=== PATIENT | female | born 1945 | race Caucasian/White ===

== ENCOUNTER → 2018-06-19 | Outpatient (CLI) | payer MEDICARE ==
[~2018-06-19] MED LIST: AMLODIPINE BESYL5 MG PO; ASPIRIN81 MG PO; COLESTIPOL HCL1 G1 PO; COZAAR25 MG PO; LASIX20 MG PO; METFORMIN HCL500 MG PO; METOPROLOL SUCC25 MG PO; NEXIUM40 MG PO; NITROGLYCERIN0.4 MG SL; SIMVASTATIN40 MG PO; SINGULAIR10 MG; VICODIN 5-5001 EACH PO
--- NOTE | 2018-06-19 18:44 | Diagnostic Imaging Report ---
Lumbar Spine Radiographs: 5 views including obliques HISTORY: LUMBAR PAIN INTO RT LOWER EXTREMITY, back pain COMPARISON: None available. DISCUSSION: Suboptimal right oblique projection. The osseous structures are partially obscured by stool and bowel gas. Five non-rib bearing lumbar vertebral bodies. Moderate left convex curvature. No displaced fracture or compression deformity is identified. Disc Spaces: Multilevel degenerative changes, moderate on the right concavity of the curvature. Facets: Multilevel degenerative changes, most notably severe on the right side of the concavity. Other: Postsurgical changes. IMPRESSION: 1. No acute radiographic abnormality. 2. Multilevel degenerative changes, most notably severe hypertrophic facet arthrosis at L4-5 and L5-S1. Signed by: Dr. John Huang D.O., M.M.M. on 06/19/2018 6:41 PM
== END ==
LOC: RAD 16:41
DX: M54.5 Low back pain (principal)
CPT/HCPCS: 72110

== ENCOUNTER 2019-10-29 13:16 | Observation (INO) | payer MEDICARE ==
[~2019-10-29] VITALS: Ht 160 cm; Wt 66.9 kg
[~2019-10-29 13:16] MED LIST changes: -SINGULAIR10 MG; +SINGULAIR10 MG PO
--- OUTSIDE RECORDS SUMMARY | 2019-10-29 13:55 | XMS REPORT | Continuity of Care Document ---
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 Allergies, Adverse Reactions, Alerts Allergy Name Allergy Type Status Severity Reaction(s) Onset Date Inacti ve Date Treating Clinician Comments Source Sulfa (Sulfonamide Antibiotics) DA Active U 2019-09-11 00 :00:00 [facility] Sulfa (Sulfonamide Antibiotics) DA Active U 2019-08-24 00 :00:00 [facility] Sulfa (Sulfonamide Antibiotics) DA Active U 2019-07-27 00 :00:00 [facility] No Known Contrast Allergies DA Active U 2001-03-04 00:00: 00 [facility] No Known Food Allergies DA Active U 2001-03-04 00:00:00 [facility] No Known Other Allergies DA Active U 2001-03-04 00:00:00 [facility] SULFA DRUGS DA Active U 2001-03-04 00:00:00 [facility] Medications This patient has no known medications. Procedures This patient has no known procedures. Results Test Description Test Time Test Comments Results Result Comments Source BASIC METABOLIC PANEL 2019-10-24 12:14:00 Test Item SODIUM (test code = NA) 134 mEq/L 134-147 N POTASSIUM (test code = K) 3.8 mEq/L 3.4-5.0 N CHLORIDE (test code = CL) 99 mEq/L 100-108 L CARBON DIOXIDE (test code = CO2) 29 mEq/L 21-33 N ANION GAP (test code = GAP) 10 0-20 N GLUCOSE (test code = GLU) 102 mg/dL 70-110 N BLOOD UREA NITROGEN (test code = BUN) 20 mg/dL 7-18 H GLOMERULAR FILTRATION RATE (test code = GFR) 36.8 70-80 L Units of measure = ml/min/1.73 m2 CREATININE (test code = CREAT) 1.4 mg/dL 0.6-1.3 H CALCIUM (test code = CA) 8.9 mg/dL 8.0-10.5 N CBC W/AUTO [id number] 06:16:00* Test Item Value Reference Range Interpretation Comments WHITE BLOOD CELL (test code = WBC) 7.87 x10 3/uL 4.5-11.0 N RED BLOOD CELL (test code = RBC) 4.28 x10 6/uL 3.54-5.02 N HEMOGLOBIN (test code = HGB) 8.5 g/dL 11.0-15.0 L HEMATOCRIT (test code = HCT) 28.0 % 33.0-45.0 L MEAN CELL VOLUME (test code = MCV) 65.4 fL 81.0-99.0 L MEAN CELL HGB (test code = MCH) 19.9 pg 27.0-33.0 L MEAN CELL HGB CONCETRATION (test code = MCHC) 30.4 g/dL 33.0-37. 0 L RED CELL DISTRIBUTION WIDTH CV (test code = RDW) 24.3 % 11.5- 14.5 H RED CELL DISTRIBUTION WIDTH SD (test code = RDW-SD) 51.2 fL 37 .0-54.0 N PLATELET COUNT (test code = PLT) 275 x10 3/uL 150-400 N IMMATURE PLATELET FRACTION (test code = IPF) 9.3 % 0.9-11.2 N NEUTROPHIL % (test code = NT%) 62.3 % 56.0-77.0 N IMMATURE GRANULOCYTE % (test code = IG%) 0.8 % 0.0-2.0 N LYMPHOCYTE % (test code = LY%) 23.4 % 14.0-32.0 N MONOCYTE % (test code = MO%) 10.8 % 4.8-9.0 H EOSINOPHIL % (test code = EO%) 1.8 % 0.3-3.7 N BASOPHIL % (test code = BA%) 0.9 % 0.0-2.0 N NUCLEATED RBC % (test code = NRBC%) 0.0 % 0-0 N NEUTROPHIL # (test code = NT#) 4.91 x10 3/uL 2.0-7.6 N IMMATURE GRANULOCYTE # (test code = IG#) 0.06 x10 3/uL 0.00-0.03 H LYMPHOCYTE # (test code = LY#) 1.84 x10 3/uL 1.0-3.8 N MONOCYTE # (test code = MO#) 0.85 x10 3/uL 0.1-0.8 H EOSINOPHIL # (test code = EO#) 0.14 x10 3/uL 0.0-0.2 N BASOPHIL # (test code = BA#) 0.07 x10 3/uL 0.0-0.2 N NUCLEATED RBC # (test code = NRBC#) 0.00 x10 3/uL 0.0-0.1 N MANUAL DIFF REQUIRED (test code = MDIFF) NO [id number] 17:01:00* Test Item Value Reference Range Interpretation Comments TROPONIN-I (test code = TROPI) < 0.015 ng/mL 0.000-0.045 N Negative: <= 0.045 Positive: >= 0.046 Correlation with serial results, other cardiac markers andclinical findings is necessary to determine the clinicalsignificance of this result. Results using different methodologies should not be comparedto one another as quantitative results may vary by method. - CT ABD PELVIS W/O [id number] 14:18:00 Name: GROVESKELLY JUNE [facility] : 1945 Age/S: 73 / F [address] [place] [address] Unit #: [id number] Loc: [place] [address] Phys: Deng Morrow DO Acct: [id number] Dis Date: Status: REG ER PHONE #: [phone] Exam Date: 10/23/2019 2895 FAX #: [phone] Reason: abd pain, nausea, vomiting, diarrhea EXAMS: CPT CODE: [id number] CT ABD PELVIS W/O CONT [id number] PROCEDURE: CT ABDOMEN AND PELVIS WITHOUT CONTRAST INDICATION: abd pain, nausea, vomiting, diarrhea; 73-year-old female with complaint of left lower quadrant abdominal pain. Previous history of pancreatic cancer. COMPARISON: CT of 09/22/2019 TECHNIQUE: Helical imaging was performed diaphragm through the symphysis with multiplanar reconstructions. IV CONTRAST: None. GI CONTRAST: None. CT imaging performed at this location utilizes radiation dose optimization techniques which include one or more of the following: - Automated exposure control -Adjustment of the mA and/or kV according to patient size -Use of iterative reconstruction technique CT Radiation Dose DLP 505.48 mGy-cm LIMITATIONS: Evaluation of abdominal viscera and vascular structures may be limited by the lack of intravenous contrast. FINDINGS: LOWER CHEST: There are bandlike opacities in the lung bases compatible with subsegmental atelectasis or scarring. No consolidation. The heart is moderately enlarged. Aortic valve calcifications. Severe coronary arterial calcifications. Small sliding- type hiatal hernia. LIVER: The liver is diffusely increased in density with attenuation values of slightly greater than 80 [place] u nits. There is a small circumscribed 6 mm low-attenuation lesion subcapsul ar segment 4A left lobe series 2 image 18, too small to characterize, stab le from prior exam. BILIARY TREE: No biliary dilatation. GALLBLADDER: Cholecystectomy. SPLEEN: Mildly enlarged, 13.2 cm in length. No focal splenic lesion. PANCREAS: Postoperativ e changes of distal pancreatectomy. The remaining proximal pancreas is unr emarkable. No peripancreatic fluid collection or mass lesion. ADRENALS: Normal. PAGE 1 Signed Report (CONTINUED) Name: KELLY GROVES [facility] : 1945 Age/S: 73 / F [address] [place] [address] Unit #: [id number] Loc: [place] [address] Phys: Deng Morrow Acct: [id number] Dis Date: Status: REG ER PHONE #: [phone] Exam Date: 10/23/2019 3904 FAX #: [phone] Reason: abd pain, nausea, vomiting, diarrhea EXAMS: CPT CODE: [id number] ABD PELVIS W/O CONT [id number] <Continued> KIDNEYS: Normal renal contours. No urinary calculi, hydronephros is or perinephric stranding. BOWEL: Small sliding-type hiata l hernia. Limited assessment of the unopacified and contracted stomach. Pa thologic rugal fold thickening not excluded. No perigastric inflammation. The small bowel is unremarkable. There is a moderate volume of formed feca l material in the ascending, transverse and descending colon. Radiodense f ormed feces in the proximal sigmoid colon. There is localized stranding of pericolonic fat at this level with subjective wall thickening. There are scattered sigmoid diverticula. The rectum is contracted without defi nitive wall thickening. APPENDIX: No evidence for appendicitis. PERITONEUM: No free intraperitoneal fluid or air. RETR OPERITONEUM: Moderate calcified plaque abdominal aorta. No aneurysm. No ad enopathy. PELVIS: No pelvic mass. Uterus is surgically absent. The urinary bladder is unremarkable. MUSCULOSKELETAL: Thoracolu mbar scoliosis. Multilevel degenerative changes of the spine. No acute ske letal abnormality. IMPRESSION: 1. Moderate stool burden with formed feces in the colon including radiodense fecal material in t he sigmoid colon. Partially obstructing lesion not excluded with benign and malignant stricture in the differential. There is localized strandin g of fat the level of mid sigmoid colon with equivocal wall thickening. Focal colitis and diverticulitis in the differential. No evidence for pe rforation or abscess. Further imaging options include endoscopy. 2. Limited assessment of the contracted stomach. Pathologic rugal fold thickening not excluded. Further imaging options include endoscopy. 3. P ostoperative changes of partial pancreatectomy without evidence for loca l recurrence. 4. Hyperattenuation of the liver. Increased iron depositio n, amiodarone toxicity and other metabolic disorders in the differential . 5. Small circumscribed subcentimeter liver lesion is too small to characterize, stable from prior exam with benign lesion favored. In this patient with history of pancreas malignancy, comparison with PAGE 2 Signed Report (CONTINUED) Name: CYNTHIA GROVES [facility] : 1945 e/S: 73 / F [address] [place] [address] Unit #: [id number] Loc: [place] [address] Phys: Deng Morrow Acct: [id number] Dis Date: Status: REG ER PHONE #: [phone] Exam Date: 10/23/2019 1354 FAX #: [phone] Reason: abd pain, nausea, vomiting, diarrhea EXAMS: CPT CODE: [id number] CT ABD PELVIS W/O CONT [id number] <Continued> prior studies would be helpful to confirm stability. Otherwise, further imaging options include follow-up MRI or CT in 3-6 months. 6. Mild splenomegaly. 7. Atherosclerosis. 8. Severe coronary arterial calcifications. Aortic valve calcifications. Mild cardiomegaly. REFERENCE: Management of Incidental Liver Lesions on CT: A White Paper of the ACR Incidental Findings Committee. 2017. SL: [id number] at 1418 Reported and signed by: Be Mosley M.D. CC: Deng Morrow DO Technologist:Jose D Guerra RT(R) CTDI: DLP: Trnscb Date/Time: 10/23/2019 (1418) [email or web address] Orig Print D/T: S: 10/23/2019 (7757) PAGE 3 Signed Report BASIC METABOLIC [id number] 13:43:00* Test Item Value Reference Range Interpretation Comments SODIUM (test code = NA) 133 mEq/L 134-147 L POTASSIUM (test code = K) 3.8 mEq/L 3.4-5.0 N CHLORIDE (test code = CL) 95 mEq/L 100-108 L CARBON DIOXIDE (test code = CO2) 28 mEq/L 21-33 N ANION GAP (test code = GAP) 14 0-20 N GLUCOSE (test code = GLU) 133 mg/dL 70-110 H BLOOD UREA NITROGEN (test code = BUN) 24 mg/dL 7-18 H GLOMERULAR FILTRATION RATE (test code = GFR) 31.5 70-80 L Units of measure = ml/min/1.73 m2 CREATININE (test code = CREAT) 1.6 mg/dL 0.6-1.3 H CALCIUM (test code = CA) 8.9 mg/dL 8.0-10.5 N HEPATIC FUNCTION [id number] 13:43:00* Test Item Value Reference Range Interpretation Comments TOTAL PROTEIN (test code = PROT) 8.4 g/dL 6.4-8.2 H ALBUMIN (test code = ALB) 3.60 g/dL 3.4-5.0 N BILIRUBIN TOTAL (test code = BILT) 0.7 MG/DL <1.5 N BILIRUBIN DIRECT (test code = BILD) 0.30 MG/DL 0.0-0.30 BILIRUBIN INDIRECT (test code = BILIND) 0.40 MG/DL SGOT/AST (test code = AST) 77 IUnit/L 15-37 H SGPT/ALT (test code = ALT) 63 IUnit/L 15-65 N ALKALINE PHOSPHATASE TOTAL (test code = ALKP) 52 IUnit/L 20-125 N [id number] 13:43:00* Test Item Value Reference Range Interpretation Comments LIPASE (test code = LIP) 140 IUnit/L 73-393 N [id number] 13:43:00* Test Item Value Reference Range Interpretation Comments TROPONIN-I (test code = TROPI) < 0.015 ng/mL 0.000-0.045 N Negative: <= 0.045 Positive: >= 0.046 Correlation with serial results, other cardiac markers andclinical findings is necessary to determine the clinicalsignificance of this result. Results using different methodologies should not be comparedto one another as quantitative results may vary by method. CBC W/AUTO [id number] 13:36:00* Test Item Value Reference Range Interpretation Comments WHITE BLOOD CELL (test code = WBC) 10.03 x10 3/uL 4.5-11.0 RED BLOOD CELL (test code = RBC) 5.11 x10 6/uL 3.54-5.02 H HEMOGLOBIN (test code = HGB) 10.0 g/dL 11.0-15.0 L HEMATOCRIT (test code = HCT) 32.0 % 33.0-45.0 L MEAN CELL VOLUME (test code = MCV) 62.6 fL 81.0-99.0 L MEAN CELL HGB (test code = MCH) 19.6 pg 27.0-33.0 L MEAN CELL HGB CONCETRATION (test code = MCHC) 31.3 g/dL 33.0-37. 0 L RED CELL DISTRIBUTION WIDTH CV (test code = RDW) 23.0 % 11.5- 14.5 H RED CELL DISTRIBUTION WIDTH SD (test code = RDW-SD) 47.1 fL 37 .0-54.0 N PLATELET COUNT (test code = PLT) 363 x10 3/uL 150-400 N IMMATURE PLATELET FRACTION (test code = IPF) 5.2 % 0.9-11.2 N NEUTROPHIL % (test code = NT%) 74.1 % 56.0-77.0 N IMMATURE GRANULOCYTE % (test code = IG%) 0.6 % 0.0-2.0 N LYMPHOCYTE % (test code = LY%) 14.7 % 14.0-32.0 N MONOCYTE % (test code = MO%) 9.5 % 4.8-9.0 H EOSINOPHIL % (test code = EO%) 0.4 % 0.3-3.7 N BASOPHIL % (test code = BA%) 0.7 % 0.0-2.0 N NUCLEATED RBC % (test code = NRBC%) 0.0 % 0-0 N NEUTROPHIL # (test code = NT#) 7.44 x10 3/uL 2.0-7.6 N IMMATURE GRANULOCYTE # (test code = IG#) 0.06 x10 3/uL 0.00-0.03 H LYMPHOCYTE # (test code = LY#) 1.47 x10 3/uL 1.0-3.8 N MONOCYTE # (test code = MO#) 0.95 x10 3/uL 0.1-0.8 H EOSINOPHIL # (test code = EO#) 0.04 x10 3/uL 0.0-0.2 N BASOPHIL # (test code = BA#) 0.07 x10 3/uL 0.0-0.2 N NUCLEATED RBC # (test code = NRBC#) 0.00 x10 3/uL 0.0-0.1 N MANUAL DIFF REQUIRED (test code = MDIFF) NO RBC [id number] 13:36:00* Test Item Value Reference Range Interpretation Comments POLYCHROMASIA (test code = POLC) 1+ HYPOCHROMIA (test code = HYPO) 1+ POIKILOCYTOSIS (test code = POIK) 2+ BASOPHILIC STIPPLING (test code = STP) FEW ANISOCYTOSIS (test code = ANISO) 2+ MICROCYTOSIS (test code = MICR) 2+ TARGET CELLS (test code = TGT) 1+ TEAR DROP CELLS (test code = TEAR) FEW ELLIPTOCYTES (test code = ELL) FEW OVALOCYTES (test code = OVAL) 1+ SCHISTOCYTES (test code = GINA) FEW PROTHROMBIN [id number] 13:21:00* Test Item Value Reference Range Interpretation Comments PROTHROMBIN TIME PATIENT (test code = PTP) 28.3 SECONDS 9.3-12.9 H INTERNATIONAL NORMAL RATIO (test code = INR) 2.6 0.8-1.2 H TARGET INR BY INDICATION Indication INR1. Prophylaxis of venous thrombosis 2.0 - 3.0 (orthopedic surgery), Prophylaxis of venous thrombosis (other than high-risk surgery), Treatment of Deep Vein Thrombosis/Pulmonary Embolism, Prevention of systemic embolism - Tissue heart valves, Acute Myocardial Infarction (to prevent systemic embolism), Valvular heart disease, Atrial Fibrillation, Bileaflet mechanical valve in aortic position.2. Mechanical prosthetic valves (high risk), 2.5 - 3.5 Presence of Lupus Anticoagulant or Antiphospholipid Antibodies, Prevention of systemic embolism - Acute Myocardial Infarction (to prevent recurrent infarct). THROMBOPLASTIN TIME [id number] 13:21:00* Test Item Value Reference Range Interpretation Comments THROMBOPLASTIN TIME PARTIAL (test code = PTT) 41.5 Seconds 25.0-39. 5 H Therapeutic Range: 50.4 - 88.3 Seconds Effective 09/09/2018 CBC W/AUTO [id number] 13:12:00* Test Item Value Reference Range Interpretation Comments WHITE BLOOD CELL (test code = WBC) 10.03 x10 3/uL 4.5-11.0 RED BLOOD CELL (test code = RBC) 5.11 x10 6/uL 3.54-5.02 H HEMOGLOBIN (test code = HGB) 10.0 g/dL 11.0-15.0 L HEMATOCRIT (test code = HCT) 32.0 % 33.0-45.0 L MEAN CELL VOLUME (test code = MCV) 62.6 fL 81.0-99.0 L MEAN CELL HGB (test code = MCH) 19.6 pg 27.0-33.0 L MEAN CELL HGB CONCETRATION (test code = MCHC) 31.3 g/dL 33.0-37. 0 L RED CELL DISTRIBUTION WIDTH CV (test code = RDW) 23.0 % 11.5- 14.5 H RED CELL DISTRIBUTION WIDTH SD (test code = RDW-SD) 47.1 fL 37 .0-54.0 N PLATELET COUNT (test code = PLT) 363 x10 3/uL 150-400 N IMMATURE PLATELET FRACTION (test code = IPF) 5.2 % 0.9-11.2 N NEUTROPHIL % (test code = NT%) 74.1 % 56.0-77.0 N IMMATURE GRANULOCYTE % (test code = IG%) 0.6 % 0.0-2.0 N LYMPHOCYTE % (test code = LY%) 14.7 % 14.0-32.0 N MONOCYTE % (test code = MO%) 9.5 % 4.8-9.0 H EOSINOPHIL % (test code = EO%) 0.4 % 0.3-3.7 N BASOPHIL % (test code = BA%) 0.7 % 0.0-2.0 N NUCLEATED RBC % (test code = NRBC%) 0.0 % 0-0 N NEUTROPHIL # (test code = NT#) 7.44 x10 3/uL 2.0-7.6 N IMMATURE GRANULOCYTE # (test code = IG#) 0.06 x10 3/uL 0.00-0.03 H LYMPHOCYTE # (test code = LY#) 1.47 x10 3/uL 1.0-3.8 N MONOCYTE # (test code = MO#) 0.95 x10 3/uL 0.1-0.8 H EOSINOPHIL # (test code = EO#) 0.04 x10 3/uL 0.0-0.2 N BASOPHIL # (test code = BA#) 0.07 x10 3/uL 0.0-0.2 N NUCLEATED RBC # (test code = NRBC#) 0.00 x10 3/uL 0.0-0.1 N MANUAL DIFF REQUIRED (test code = MDIFF) NO RBC [id number] 13:12:00* Test Item Value Reference Range Interpretation Comments ANISOCYTOSIS (test code = ANISO) CBC W/AUTO [id number] 13:12:00* Test Item Value Reference Range Interpretation Comments WHITE BLOOD CELL (test code = WBC) 10.03 x10 3/uL 4.5-11.0 RED BLOOD CELL (test code = RBC) 5.11 x10 6/uL 3.54-5.02 H HEMOGLOBIN (test code = HGB) 10.0 g/dL 11.0-15.0 L HEMATOCRIT (test code = HCT) 32.0 % 33.0-45.0 L MEAN CELL VOLUME (test code = MCV) 62.6 fL 81.0-99.0 L MEAN CELL HGB (test code = MCH) 19.6 pg 27.0-33.0 L MEAN CELL HGB CONCETRATION (test code = MCHC) 31.3 g/dL 33.0-37. 0 L RED CELL DISTRIBUTION WIDTH CV (test code = RDW) 23.0 % 11.5- 14.5 H RED CELL DISTRIBUTION WIDTH SD (test code = RDW-SD) 47.1 fL 37 .0-54.0 N PLATELET COUNT (test code = PLT) 363 x10 3/uL 150-400 N IMMATURE PLATELET FRACTION (test code = IPF) 5.2 % 0.9-11.2 N NEUTROPHIL % (test code = NT%) 74.1 % 56.0-77.0 N IMMATURE GRANULOCYTE % (test code = IG%) 0.6 % 0.0-2.0 N LYMPHOCYTE % (test code = LY%) 14.7 % 14.0-32.0 N MONOCYTE % (test code = MO%) 9.5 % 4.8-9.0 H EOSINOPHIL % (test code = EO%) 0.4 % 0.3-3.7 N BASOPHIL % (test code = BA%) 0.7 % 0.0-2.0 N NUCLEATED RBC % (test code = NRBC%) 0.0 % 0-0 N NEUTROPHIL # (test code = NT#) 7.44 x10 3/uL 2.0-7.6 N IMMATURE GRANULOCYTE # (test code = IG#) 0.06 x10 3/uL 0.00-0.03 H LYMPHOCYTE # (test code = LY#) 1.47 x10 3/uL 1.0-3.8 N MONOCYTE # (test code = MO#) 0.95 x10 3/uL 0.1-0.8 H EOSINOPHIL # (test code = EO#) 0.04 x10 3/uL 0.0-0.2 N BASOPHIL # (test code = BA#) 0.07 x10 3/uL 0.0-0.2 N NUCLEATED RBC # (test code = NRBC#) 0.00 x10 3/uL 0.0-0.1 N MANUAL DIFF REQUIRED (test code = MDIFF) NO RBC [id number] 13:12:00* Test Item Value Reference Range Interpretation Comments ANISOCYTOSIS (test code = ANISO) BASIC METABOLIC [id number] 04:29:00* Test Item Value Reference Range Interpretation Comments SODIUM (test code = NA) 136 mEq/L 134-147 N POTASSIUM (test code = K) 4.1 mEq/L 3.4-5.0 CHLORIDE (test code = CL) 102 mEq/L 100-108 N CARBON DIOXIDE (test code = CO2) 28 mEq/L 21-33 N ANION GAP (test code = GAP) 10 0-20 N GLUCOSE (test code = GLU) 109 mg/dL 70-110 N BLOOD UREA NITROGEN (test code = BUN) 19 mg/dL 7-18 H GLOMERULAR FILTRATION RATE (test code = GFR) 36.8 70-80 L Units of measure = ml/min/1.73 m2 CREATININE (test code = CREAT) 1.4 mg/dL 0.6-1.3 H CALCIUM (test code = CA) 8.8 mg/dL 8.0-10.5 N [id number] 04:29:00* Test Item Value Reference Range Interpretation Comments PHOSPHOROUS (test code = PHOS) 3.3 MG/DL 2.5-4.9 N [id number] 04:29:00* Test Item Value Reference Range Interpretation Comments MAGNESIUM (test code = MAG) 1.90 mg/dL 1.8-2.4 N CBC W/AUTO [id number] 04:18:00* Test Item Value Reference Range Interpretation Comments WHITE BLOOD CELL (test code = WBC) 5.31 x10 3/uL 4.5-11.0 N RED BLOOD CELL (test code = RBC) 4.29 x10 6/uL 3.54-5.02 N HEMOGLOBIN (test code = HGB) 8.6 g/dL 11.0-15.0 L HEMATOCRIT (test code = HCT) 27.3 % 33.0-45.0 L MEAN CELL VOLUME (test code = MCV) 63.6 fL 81.0-99.0 L MEAN CELL HGB (test code = MCH) 20.0 pg 27.0-33.0 L MEAN CELL HGB CONCETRATION (test code = MCHC) 31.5 g/dL 33.0-37. 0 L RED CELL DISTRIBUTION WIDTH CV (test code = RDW) 23.5 % 11.5- 14.5 H RED CELL DISTRIBUTION WIDTH SD (test code = RDW-SD) 47.8 fL 37 .0-54.0 N PLATELET COUNT (test code = PLT) 343 x10 3/uL 150-400 N IMMATURE PLATELET FRACTION (test code = IPF) 4.6 % 0.9-11.2 N NEUTROPHIL % (test code = NT%) 44.1 % 56.0-77.0 L IMMATURE GRANULOCYTE % (test code = IG%) 1.3 % 0.0-2.0 N LYMPHOCYTE % (test code = LY%) 33.1 % 14.0-32.0 H MONOCYTE % (test code = MO%) 14.1 % 4.8-9.0 H EOSINOPHIL % (test code = EO%) 5.5 % 0.3-3.7 H BASOPHIL % (test code = BA%) 1.9 % 0.0-2.0 N NUCLEATED RBC % (test code = NRBC%) 0.0 % 0-0 N NEUTROPHIL # (test code = NT#) 2.34 x10 3/uL 2.0-7.6 N IMMATURE GRANULOCYTE # (test code = IG#) 0.07 x10 3/uL 0.00-0.03 H LYMPHOCYTE # (test code = LY#) 1.76 x10 3/uL 1.0-3.8 N MONOCYTE # (test code = MO#) 0.75 x10 3/uL 0.1-0.8 N EOSINOPHIL # (test code = EO#) 0.29 x10 3/uL 0.0-0.2 H BASOPHIL # (test code = BA#) 0.10 x10 3/uL 0.0-0.2 N NUCLEATED RBC # (test code = NRBC#) 0.00 x10 3/uL 0.0-0.1 N MANUAL DIFF REQUIRED (test code = MDIFF) NO CBC W/AUTO [id number] 10:47:00* Test Item Value Reference Range Interpretation Comments WHITE BLOOD CELL (test code = WBC) 4.32 x10 3/uL 4.5-11.0 L RED BLOOD CELL (test code = RBC) 4.82 x10 6/uL 3.54-5.02 N HEMOGLOBIN (test code = HGB) 9.8 g/dL 11.0-15.0 L HEMATOCRIT (test code = HCT) 30.6 % 33.0-45.0 L MEAN CELL VOLUME (test code = MCV) 63.5 fL 81.0-99.0 L MEAN CELL HGB (test code = MCH) 20.3 pg 27.0-33.0 L MEAN CELL HGB CONCETRATION (test code = MCHC) 32.0 g/dL 33.0-37. 0 L RED CELL DISTRIBUTION WIDTH CV (test code = RDW) 23.9 % 11.5- 14.5 H RED CELL DISTRIBUTION WIDTH SD (test code = RDW-SD) 49.0 fL 37 .0-54.0 N PLATELET COUNT (test code = PLT) 379 x10 3/uL 150-400 N IMMATURE PLATELET FRACTION (test code = IPF) 5.4 % 0.9-11.2 N NEUTROPHIL % (test code = NT%) 40.9 % 56.0-77.0 L IMMATURE GRANULOCYTE % (test code = IG%) 1.4 % 0.0-2.0 N LYMPHOCYTE % (test code = LY%) 37.3 % 14.0-32.0 H MONOCYTE % (test code = MO%) 15.0 % 4.8-9.0 H EOSINOPHIL % (test code = EO%) 3.5 % 0.3-3.7 N BASOPHIL % (test code = BA%) 1.9 % 0.0-2.0 N NUCLEATED RBC % (test code = NRBC%) 0.0 % 0-0 N NEUTROPHIL # (test code = NT#) 1.77 x10 3/uL 2.0-7.6 L IMMATURE GRANULOCYTE # (test code = IG#) 0.06 x10 3/uL 0.00-0.03 H LYMPHOCYTE # (test code = LY#) 1.61 x10 3/uL 1.0-3.8 N MONOCYTE # (test code = MO#) 0.65 x10 3/uL 0.1-0.8 N EOSINOPHIL # (test code = EO#) 0.15 x10 3/uL 0.0-0.2 N BASOPHIL # (test code = BA#) 0.08 x10 3/uL 0.0-0.2 N NUCLEATED RBC # (test code = NRBC#) 0.00 x10 3/uL 0.0-0.1 N MANUAL DIFF REQUIRED (test code = MDIFF) NO RBC [id number] 10:47:00* Test Item Value Reference Range Interpretation Comments HYPOCHROMIA (test code = HYPO) 2+ POIKILOCYTOSIS (test code = POIK) 1+ BASOPHILIC STIPPLING (test code = STP) 1+ ANISOCYTOSIS (test code = ANISO) 2+ MICROCYTOSIS (test code = MICR) 1+ OVALOCYTES (test code = OVAL) 1+ SCHISTOCYTES (test code = GINA) 1+ BASIC METABOLIC [id number] 08:28:00* Test Item Value Reference Range Interpretation Comments SODIUM (test code = NA) 136 mEq/L 134-147 N POTASSIUM (test code = K) 3.4 mEq/L 3.4-5.0 N CHLORIDE (test code = CL) 100 mEq/L 100-108 N CARBON DIOXIDE (test code = CO2) 27 mEq/L 21-33 N ANION GAP (test code = GAP) 12 0-20 N GLUCOSE (test code = GLU) 88 mg/dL 70-110 N BLOOD UREA NITROGEN (test code = BUN) 14 mg/dL 7-18 N GLOMERULAR FILTRATION RATE (test code = GFR) 43.9 70-80 L Units of measure = ml/min/1.73 m2 CREATININE (test code = CREAT) 1.2 mg/dL 0.6-1.3 N CALCIUM (test code = CA) 8.9 mg/dL 8.0-10.5 N [id number] 08:28:00* Test Item Value Reference Range Interpretation Comments PHOSPHOROUS (test code = PHOS) 3.6 MG/DL 2.5-4.9 N [id number] 08:28:00* Test Item Value Reference Range Interpretation Comments MAGNESIUM (test code = MAG) 2.00 mg/dL 1.8-2.4 N CBC W/AUTO [id number] 08:19:00* Test Item Value Reference Range Interpretation Comments WHITE BLOOD CELL (test code = WBC) 4.32 x10 3/uL 4.5-11.0 L RED BLOOD CELL (test code = RBC) 4.82 x10 6/uL 3.54-5.02 N HEMOGLOBIN (test code = HGB) 9.8 g/dL 11.0-15.0 L HEMATOCRIT (test code = HCT) 30.6 % 33.0-45.0 L MEAN CELL VOLUME (test code = MCV) 63.5 fL 81.0-99.0 L MEAN CELL HGB (test code = MCH) 20.3 pg 27.0-33.0 L MEAN CELL HGB CONCETRATION (test code = MCHC) 32.0 g/dL 33.0-37. 0 L RED CELL DISTRIBUTION WIDTH CV (test code = RDW) 23.9 % 11.5- 14.5 H RED CELL DISTRIBUTION WIDTH SD (test code = RDW-SD) 49.0 fL 37 .0-54.0 N PLATELET COUNT (test code = PLT) 379 x10 3/uL 150-400 N IMMATURE PLATELET FRACTION (test code = IPF) 5.4 % 0.9-11.2 N NEUTROPHIL % (test code = NT%) 40.9 % 56.0-77.0 L IMMATURE GRANULOCYTE % (test code = IG%) 1.4 % 0.0-2.0 N LYMPHOCYTE % (test code = LY%) 37.3 % 14.0-32.0 H MONOCYTE % (test code = MO%) 15.0 % 4.8-9.0 H EOSINOPHIL % (test code = EO%) 3.5 % 0.3-3.7 N BASOPHIL % (test code = BA%) 1.9 % 0.0-2.0 N NUCLEATED RBC % (test code = NRBC%) 0.0 % 0-0 N NEUTROPHIL # (test code = NT#) 1.77 x10 3/uL 2.0-7.6 L IMMATURE GRANULOCYTE # (test code = IG#) 0.06 x10 3/uL 0.00-0.03 H LYMPHOCYTE # (test code = LY#) 1.61 x10 3/uL 1.0-3.8 N MONOCYTE # (test code = MO#) 0.65 x10 3/uL 0.1-0.8 N EOSINOPHIL # (test code = EO#) 0.15 x10 3/uL 0.0-0.2 N BASOPHIL # (test code = BA#) 0.08 x10 3/uL 0.0-0.2 N NUCLEATED RBC # (test code = NRBC#) 0.00 x10 3/uL 0.0-0.1 N MANUAL DIFF REQUIRED (test code = MDIFF) NO RBC [id number] 08:19:00* Test Item Value Reference Range Interpretation Comments ANISOCYTOSIS (test code = ANISO) CBC W/AUTO [id number] 08:19:00* Test Item Value Reference Range Interpretation Comments WHITE BLOOD CELL (test code = WBC) 4.32 x10 3/uL 4.5-11.0 L RED BLOOD CELL (test code = RBC) 4.82 x10 6/uL 3.54-5.02 N HEMOGLOBIN (test code = HGB) 9.8 g/dL 11.0-15.0 L HEMATOCRIT (test code = HCT) 30.6 % 33.0-45.0 L MEAN CELL VOLUME (test code = MCV) 63.5 fL 81.0-99.0 L MEAN CELL HGB (test code = MCH) 20.3 pg 27.0-33.0 L MEAN CELL HGB CONCETRATION (test code = MCHC) 32.0 g/dL 33.0-37. 0 L RED CELL DISTRIBUTION WIDTH CV (test code = RDW) 23.9 % 11.5- 14.5 H RED CELL DISTRIBUTION WIDTH SD (test code = RDW-SD) 49.0 fL 37 .0-54.0 N PLATELET COUNT (test code = PLT) 379 x10 3/uL 150-400 N IMMATURE PLATELET FRACTION (test code = IPF) 5.4 % 0.9-11.2 N NEUTROPHIL % (test code = NT%) 40.9 % 56.0-77.0 L IMMATURE GRANULOCYTE % (test code = IG%) 1.4 % 0.0-2.0 N LYMPHOCYTE % (test code = LY%) 37.3 % 14.0-32.0 H MONOCYTE % (test code = MO%) 15.0 % 4.8-9.0 H EOSINOPHIL % (test code = EO%) 3.5 % 0.3-3.7 N BASOPHIL % (test code = BA%) 1.9 % 0.0-2.0 N NUCLEATED RBC % (test code = NRBC%) 0.0 % 0-0 N NEUTROPHIL # (test code = NT#) 1.77 x10 3/uL 2.0-7.6 L IMMATURE GRANULOCYTE # (test code = IG#) 0.06 x10 3/uL 0.00-0.03 H LYMPHOCYTE # (test code = LY#) 1.61 x10 3/uL 1.0-3.8 N MONOCYTE # (test code = MO#) 0.65 x10 3/uL 0.1-0.8 N EOSINOPHIL # (test code = EO#) 0.15 x10 3/uL 0.0-0.2 N BASOPHIL # (test code = BA#) 0.08 x10 3/uL 0.0-0.2 N NUCLEATED RBC # (test code = NRBC#) 0.00 x10 3/uL 0.0-0.1 N MANUAL DIFF REQUIRED (test code = MDIFF) NO RBC [id number] 08:19:00* Test Item Value Reference Range Interpretation Comments ANISOCYTOSIS (test code = ANISO) [id number] 09:46:00* Test Item Value Reference Range Interpretation Comments SODIUM (test code = NA) 133 mEq/L 134-147 L COMMENTS: Draw serum sodium levels q6hrs for the first 24 hours & q12hrs for theComment: next 24 hrs with initiation of Tolvaptan or for any dose change.CBC W/AUTO [id number] 09:25:00* Test Item Value Reference Range Interpretation Comments WHITE BLOOD CELL (test code = WBC) 5.47 x10 3/uL 4.5-11.0 N RED BLOOD CELL (test code = RBC) 4.43 x10 6/uL 3.54-5.02 N HEMOGLOBIN (test code = HGB) 8.9 g/dL 11.0-15.0 L HEMATOCRIT (test code = HCT) 27.9 % 33.0-45.0 L MEAN CELL VOLUME (test code = MCV) 63.0 fL 81.0-99.0 L MEAN CELL HGB (test code = MCH) 20.1 pg 27.0-33.0 L MEAN CELL HGB CONCETRATION (test code = MCHC) 31.9 g/dL 33.0-37. 0 L RED CELL DISTRIBUTION WIDTH CV (test code = RDW) 23.6 % 11.5- 14.5 H RED CELL DISTRIBUTION WIDTH SD (test code = RDW-SD) 47.8 fL 37 .0-54.0 N PLATELET COUNT (test code = PLT) 351 x10 3/uL 150-400 N IMMATURE PLATELET FRACTION (test code = IPF) 6.0 % 0.9-11.2 N NEUTROPHIL % (test code = NT%) 42.4 % 56.0-77.0 L IMMATURE GRANULOCYTE % (test code = IG%) 1.1 % 0.0-2.0 N LYMPHOCYTE % (test code = LY%) 34.9 % 14.0-32.0 H MONOCYTE % (test code = MO%) 16.3 % 4.8-9.0 H EOSINOPHIL % (test code = EO%) 3.8 % 0.3-3.7 H BASOPHIL % (test code = BA%) 1.5 % 0.0-2.0 N NUCLEATED RBC % (test code = NRBC%) 0.0 % 0-0 N NEUTROPHIL # (test code = NT#) 2.32 x10 3/uL 2.0-7.6 N IMMATURE GRANULOCYTE # (test code = IG#) 0.06 x10 3/uL 0.00-0.03 H LYMPHOCYTE # (test code = LY#) 1.91 x10 3/uL 1.0-3.8 N MONOCYTE # (test code = MO#) 0.89 x10 3/uL 0.1-0.8 H EOSINOPHIL # (test code = EO#) 0.21 x10 3/uL 0.0-0.2 H BASOPHIL # (test code = BA#) 0.08 x10 3/uL 0.0-0.2 N NUCLEATED RBC # (test code = NRBC#) 0.00 x10 3/uL 0.0-0.1 N MANUAL DIFF REQUIRED (test code = MDIFF) NO BASIC METABOLIC [id number] 08:13:00* Test Item Value Reference Range Interpretation Comments SODIUM (test code = NA) 131 mEq/L 134-147 L POTASSIUM (test code = K) 3.6 mEq/L 3.4-5.0 N CHLORIDE (test code = CL) 96 mEq/L 100-108 L CARBON DIOXIDE (test code = CO2) 27 mEq/L 21-33 N ANION GAP (test code = GAP) 12 0-20 N GLUCOSE (test code = GLU) 96 mg/dL 70-110 N BLOOD UREA NITROGEN (test code = BUN) 16 mg/dL 7-18 N GLOMERULAR FILTRATION RATE (test code = GFR) 33.9 70-80 L Units of measure = ml/min/1.73 m2 CREATININE (test code = CREAT) 1.5 mg/dL 0.6-1.3 H CALCIUM (test code = CA) 8.8 mg/dL 8.0-10.5 N [id number] 08:13:00* Test Item Value Reference Range Interpretation Comments PHOSPHOROUS (test code = PHOS) 3.3 MG/DL 2.5-4.9 N [id number] 08:13:00* Test Item Value Reference Range Interpretation Comments MAGNESIUM (test code = MAG) 2.00 mg/dL 1.8-2.4 N [id number] 22:37:00* Test Item Value Reference Range Interpretation Comments SODIUM (test code = NA) 130 mEq/L 134-147 L COMMENTS: Draw serum sodium levels q6hrs for the first 24 hours & q12hrs for theComment: next 24 hrs with initiation of Tolvaptan or for any dose change.[id number] 10:56:00* Test Item Value Reference Range Interpretation Comments SODIUM (test code = NA) 130 mEq/L 134-147 L BASIC METABOLIC [id number] 04:26:00* Test Item Value Reference Range Interpretation Comments SODIUM (test code = NA) 128 mEq/L 134-147 L POTASSIUM (test code = K) 3.6 mEq/L 3.4-5.0 N CHLORIDE (test code = CL) 94 mEq/L 100-108 L CARBON DIOXIDE (test code = CO2) 26 mEq/L 21-33 N ANION GAP (test code = GAP) 12 0-20 N GLUCOSE (test code = GLU) 111 mg/dL 70-110 H BLOOD UREA NITROGEN (test code = BUN) 16 mg/dL 7-18 N GLOMERULAR FILTRATION RATE (test code = GFR) 33.9 70-80 L Units of measure = ml/min/1.73 m2 CREATININE (test code = CREAT) 1.5 mg/dL 0.6-1.3 H CALCIUM (test code = CA) 8.8 mg/dL 8.0-10.5 N [id number] 04:26:00* Test Item Value Reference Range Interpretation Comments PHOSPHOROUS (test code = PHOS) 3.0 MG/DL 2.5-4.9 N [id number] 04:26:00* Test Item Value Reference Range Interpretation Comments MAGNESIUM (test code = MAG) 2.30 mg/dL 1.8-2.4 CBC W/AUTO [id number] 04:16:00* Test Item Value Reference Range Interpretation Comments WHITE BLOOD CELL (test code = WBC) 5.26 x10 3/uL 4.5-11.0 N RED BLOOD CELL (test code = RBC) 4.18 x10 6/uL 3.54-5.02 N HEMOGLOBIN (test code = HGB) 8.5 g/dL 11.0-15.0 L HEMATOCRIT (test code = HCT) 26.1 % 33.0-45.0 L MEAN CELL VOLUME (test code = MCV) 62.4 fL 81.0-99.0 L MEAN CELL HGB (test code = MCH) 20.3 pg 27.0-33.0 L MEAN CELL HGB CONCETRATION (test code = MCHC) 32.6 g/dL 33.0-37. 0 L RED CELL DISTRIBUTION WIDTH CV (test code = RDW) 23.6 % 11.5- 14.5 H RED CELL DISTRIBUTION WIDTH SD (test code = RDW-SD) 48.0 fL 37 .0-54.0 N PLATELET COUNT (test code = PLT) 366 x10 3/uL 150-400 N IMMATURE PLATELET FRACTION (test code = IPF) 4.5 % 0.9-11.2 N NEUTROPHIL % (test code = NT%) 50.4 % 56.0-77.0 L IMMATURE GRANULOCYTE % (test code = IG%) 1.3 % 0.0-2.0 N LYMPHOCYTE % (test code = LY%) 27.8 % 14.0-32.0 N MONOCYTE % (test code = MO%) 16.3 % 4.8-9.0 H EOSINOPHIL % (test code = EO%) 2.7 % 0.3-3.7 N BASOPHIL % (test code = BA%) 1.5 % 0.0-2.0 N NUCLEATED RBC % (test code = NRBC%) 0.0 % 0-0 N NEUTROPHIL # (test code = NT#) 2.65 x10 3/uL 2.0-7.6 N IMMATURE GRANULOCYTE # (test code = IG#) 0.07 x10 3/uL 0.00-0.03 H LYMPHOCYTE # (test code = LY#) 1.46 x10 3/uL 1.0-3.8 N MONOCYTE # (test code = MO#) 0.86 x10 3/uL 0.1-0.8 H EOSINOPHIL # (test code = EO#) 0.14 x10 3/uL 0.0-0.2 N BASOPHIL # (test code = BA#) 0.08 x10 3/uL 0.0-0.2 N NUCLEATED RBC # (test code = NRBC#) 0.00 x10 3/uL 0.0-0.1 N MANUAL DIFF REQUIRED (test code = MDIFF) NO [id number] 21:57:00* Test Item Value Reference Range Interpretation Comments SODIUM (test code = NA) 128 mEq/L 134-147 L COMMENTS: Draw serum sodium levels q6hrs for the first 24 hours & q12hrs for theComment: next 24 hrs with initiation of Tolvaptan or for any dose change.[id number] 15:24:00* Test Item Value Reference Range Interpretation Comments SODIUM (test code = NA) 128 mEq/L 134-147 L COMMENTS: Draw serum sodium levels q6hrs for the first 24 hours & q12hrs for theComment: next 24 hrs with initiation of Tolvaptan or for any dose change.BASIC METABOLIC [id number] 08:45:00* Test Item Value Reference Range Interpretation Comments SODIUM (test code = NA) 131 mEq/L 134-147 L POTASSIUM (test code = K) 3.4 mEq/L 3.4-5.0 N CHLORIDE (test code = CL) 95 mEq/L 100-108 L CARBON DIOXIDE (test code = CO2) 28 mEq/L 21-33 N ANION GAP (test code = GAP) 11 0-20 N GLUCOSE (test code = GLU) 88 mg/dL 70-110 N BLOOD UREA NITROGEN (test code = BUN) 13 mg/dL 7-18 N GLOMERULAR FILTRATION RATE (test code = GFR) 40.0 70-80 L Units of measure = ml/min/1.73 m2 CREATININE (test code = CREAT) 1.3 mg/dL 0.6-1.3 N CALCIUM (test code = CA) 9.4 mg/dL 8.0-10.5 N [id number] 08:45:00* Test Item Value Reference Range Interpretation Comments PHOSPHOROUS (test code = PHOS) 3.5 MG/DL 2.5-4.9 N [id number] 08:45:00* Test Item Value Reference Range Interpretation Comments MAGNESIUM (test code = MAG) 1.70 mg/dL 1.8-2.4 L CBC W/AUTO [id number] 07:56:00* Test Item Value Reference Range Interpretation Comments WHITE BLOOD CELL (test code = WBC) 4.96 x10 3/uL 4.5-11.0 N RED BLOOD CELL (test code = RBC) 4.66 x10 6/uL 3.54-5.02 N HEMOGLOBIN (test code = HGB) 9.3 g/dL 11.0-15.0 L HEMATOCRIT (test code = HCT) 29.5 % 33.0-45.0 L MEAN CELL VOLUME (test code = MCV) 63.3 fL 81.0-99.0 L MEAN CELL HGB (test code = MCH) 20.0 pg 27.0-33.0 L MEAN CELL HGB CONCETRATION (test code = MCHC) 31.5 g/dL 33.0-37. 0 L RED CELL DISTRIBUTION WIDTH CV (test code = RDW) 24.1 % 11.5- 14.5 H RED CELL DISTRIBUTION WIDTH SD (test code = RDW-SD) 50.1 fL 37 .0-54.0 N PLATELET COUNT (test code = PLT) 377 x10 3/uL 150-400 N IMMATURE PLATELET FRACTION (test code = IPF) 4.9 % 0.9-11.2 N NEUTROPHIL % (test code = NT%) 50.3 % 56.0-77.0 L IMMATURE GRANULOCYTE % (test code = IG%) 1.4 % 0.0-2.0 N LYMPHOCYTE % (test code = LY%) 28.4 % 14.0-32.0 N MONOCYTE % (test code = MO%) 16.1 % 4.8-9.0 H EOSINOPHIL % (test code = EO%) 2.8 % 0.3-3.7 N BASOPHIL % (test code = BA%) 1.0 % 0.0-2.0 N NUCLEATED RBC % (test code = NRBC%) 0.0 % 0-0 N NEUTROPHIL # (test code = NT#) 2.49 x10 3/uL 2.0-7.6 N IMMATURE GRANULOCYTE # (test code = IG#) 0.07 x10 3/uL 0.00-0.03 H LYMPHOCYTE # (test code = LY#) 1.41 x10 3/uL 1.0-3.8 N MONOCYTE # (test code = MO#) 0.80 x10 3/uL 0.1-0.8 N EOSINOPHIL # (test code = EO#) 0.14 x10 3/uL 0.0-0.2 N BASOPHIL # (test code = BA#) 0.05 x10 3/uL 0.0-0.2 N NUCLEATED RBC # (test code = NRBC#) 0.00 x10 3/uL 0.0-0.1 N MANUAL DIFF REQUIRED (test code = MDIFF) NO [id number] 00:47:00* Test Item Value Reference Range Interpretation Comments SODIUM (test code = NA) 128 mEq/L 134-147 L COMMENTS: Draw serum sodium levels q6hrs for the first 24 hours & q12hrs for theComment: next 24 hrs with initiation of Tolvaptan or for any dose change.[id number] 18:30:00* Test Item Value Reference Range Interpretation Comments SODIUM (test code = NA) 128 mEq/L 134-147 L COMMENTS: Draw serum sodium levels q6hrs for the first 24 hours & q12hrs for theComment: next 24 hrs with initiation of Tolvaptan or for any dose change.BASIC METABOLIC [id number] 08:21:00* Test Item Value Reference Range Interpretation Comments SODIUM (test code = NA) 128 mEq/L 134-147 L POTASSIUM (test code = K) 3.7 mEq/L 3.4-5.0 N CHLORIDE (test code = CL) 93 mEq/L 100-108 L CARBON DIOXIDE (test code = CO2) 26 mEq/L 21-33 N ANION GAP (test code = GAP) 13 0-20 N GLUCOSE (test code = GLU) 97 mg/dL 70-110 N BLOOD UREA NITROGEN (test code = BUN) 15 mg/dL 7-18 N GLOMERULAR FILTRATION RATE (test code = GFR) 43.9 70-80 L Units of measure = ml/min/1.73 m2 CREATININE (test code = CREAT) 1.2 mg/dL 0.6-1.3 N CALCIUM (test code = CA) 8.9 mg/dL 8.0-10.5 N [id number] 08:21:00* Test Item Value Reference Range Interpretation Comments PHOSPHOROUS (test code = PHOS) 3.0 MG/DL 2.5-4.9 N [id number] 08:21:00* Test Item Value Reference Range Interpretation Comments MAGNESIUM (test code = MAG) 1.60 mg/dL 1.8-2.4 L [id number] 00:30:00* Test Item Value Reference Range Interpretation Comments SODIUM (test code = NA) 141 mEq/L 134-147 N COMMENTS: Draw serum sodium levels q6hrs for the first 24 hours & q12hrs for theComment: next 24 hrs with initiation of Tolvaptan or for any dose change.[id number] 18:06:00* Test Item Value Reference Range Interpretation Comments SODIUM (test code = NA) 127 mEq/L 134-147 L COMMENTS: Draw serum sodium levels q6hrs for the first 24 hours & q12hrs for theComment: next 24 hrs with initiation of Tolvaptan or for any dose change.[id number] 11:58:00* Test Item Value Reference Range Interpretation Comments SODIUM (test code = NA) 127 mEq/L 134-147 L COMMENTS: Draw serum sodium levels q6hrs for the first 24 hours & q12hrs for theComment: next 24 hrs with initiation of Tolvaptan or for any dose change.CBC W/AUTO [id number] 10:00:00* Test Item Value Reference Range Interpretation Comments WHITE BLOOD CELL (test code = WBC) 3.92 x10 3/uL 4.5-11.0 L RED BLOOD CELL (test code = RBC) 4.74 x10 6/uL 3.54-5.02 N HEMOGLOBIN (test code = HGB) 9.4 g/dL 11.0-15.0 L HEMATOCRIT (test code = HCT) 29.8 % 33.0-45.0 L MEAN CELL VOLUME (test code = MCV) 62.9 fL 81.0-99.0 L MEAN CELL HGB (test code = MCH) 19.8 pg 27.0-33.0 L MEAN CELL HGB CONCETRATION (test code = MCHC) 31.5 g/dL 33.0-37. 0 L RED CELL DISTRIBUTION WIDTH CV (test code = RDW) 24.0 % 11.5- 14.5 H RED CELL DISTRIBUTION WIDTH SD (test code = RDW-SD) 50.9 fL 37 .0-54.0 N PLATELET COUNT (test code = PLT) 364 x10 3/uL 150-400 N IMMATURE PLATELET FRACTION (test code = IPF) 4.6 % 0.9-11.2 N NEUTROPHIL % (test code = NT%) 49.7 % 56.0-77.0 L IMMATURE GRANULOCYTE % (test code = IG%) 0.8 % 0.0-2.0 N LYMPHOCYTE % (test code = LY%) 29.3 % 14.0-32.0 N MONOCYTE % (test code = MO%) 14.8 % 4.8-9.0 H EOSINOPHIL % (test code = EO%) 4.1 % 0.3-3.7 H BASOPHIL % (test code = BA%) 1.3 % 0.0-2.0 N NUCLEATED RBC % (test code = NRBC%) 0.0 % 0-0 N NEUTROPHIL # (test code = NT#) 1.95 x10 3/uL 2.0-7.6 L IMMATURE GRANULOCYTE # (test code = IG#) 0.03 x10 3/uL 0.00-0.03 N LYMPHOCYTE # (test code = LY#) 1.15 x10 3/uL 1.0-3.8 N MONOCYTE # (test code = MO#) 0.58 x10 3/uL 0.1-0.8 N EOSINOPHIL # (test code = EO#) 0.16 x10 3/uL 0.0-0.2 N BASOPHIL # (test code = BA#) 0.05 x10 3/uL 0.0-0.2 N NUCLEATED RBC # (test code = NRBC#) 0.00 x10 3/uL 0.0-0.1 N MANUAL DIFF REQUIRED (test code = MDIFF) NO RBC [id number] 10:00:00* Test Item Value Reference Range Interpretation Comments POLYCHROMASIA (test code = POLC) 1+ HYPOCHROMIA (test code = HYPO) 1+ POIKILOCYTOSIS (test code = POIK) 2+ RARE STOMATOCYTES SEEN BASOPHILIC STIPPLING (test code = STP) FEW ANISOCYTOSIS (test code = ANISO) 2+ MICROCYTOSIS (test code = MICR) 2+ TARGET CELLS (test code = TGT) 1+ TEAR DROP CELLS (test code = TEAR) FEW ELLIPTOCYTES (test code = ELL) 1+ OVALOCYTES (test code = OVAL) FEW SCHISTOCYTES (test code = GINA) 1+ CBC W/AUTO [id number] 07:35:00* Test Item Value Reference Range Interpretation Comments WHITE BLOOD CELL (test code = WBC) 3.92 x10 3/uL 4.5-11.0 L RED BLOOD CELL (test code = RBC) 4.74 x10 6/uL 3.54-5.02 N HEMOGLOBIN (test code = HGB) 9.4 g/dL 11.0-15.0 L HEMATOCRIT (test code = HCT) 29.8 % 33.0-45.0 L MEAN CELL VOLUME (test code = MCV) 62.9 fL 81.0-99.0 L MEAN CELL HGB (test code = MCH) 19.8 pg 27.0-33.0 L MEAN CELL HGB CONCETRATION (test code = MCHC) 31.5 g/dL 33.0-37. 0 L RED CELL DISTRIBUTION WIDTH CV (test code = RDW) 24.0 % 11.5- 14.5 H RED CELL DISTRIBUTION WIDTH SD (test code = RDW-SD) 50.9 fL 37 .0-54.0 N PLATELET COUNT (test code = PLT) 364 x10 3/uL 150-400 N IMMATURE PLATELET FRACTION (test code = IPF) 4.6 % 0.9-11.2 N NEUTROPHIL % (test code = NT%) 49.7 % 56.0-77.0 L IMMATURE GRANULOCYTE % (test code = IG%) 0.8 % 0.0-2.0 N LYMPHOCYTE % (test code = LY%) 29.3 % 14.0-32.0 N MONOCYTE % (test code = MO%) 14.8 % 4.8-9.0 H EOSINOPHIL % (test code = EO%) 4.1 % 0.3-3.7 H BASOPHIL % (test code = BA%) 1.3 % 0.0-2.0 N NUCLEATED RBC % (test code = NRBC%) 0.0 % 0-0 N NEUTROPHIL # (test code = NT#) 1.95 x10 3/uL 2.0-7.6 L IMMATURE GRANULOCYTE # (test code = IG#) 0.03 x10 3/uL 0.00-0.03 N LYMPHOCYTE # (test code = LY#) 1.15 x10 3/uL 1.0-3.8 N MONOCYTE # (test code = MO#) 0.58 x10 3/uL 0.1-0.8 N EOSINOPHIL # (test code = EO#) 0.16 x10 3/uL 0.0-0.2 N BASOPHIL # (test code = BA#) 0.05 x10 3/uL 0.0-0.2 N NUCLEATED RBC # (test code = NRBC#) 0.00 x10 3/uL 0.0-0.1 N MANUAL DIFF REQUIRED (test code = MDIFF) NO RBC [id number] 07:35:00* Test Item Value Reference Range Interpretation Comments ANISOCYTOSIS (test code = ANISO) CBC W/AUTO [id number] 07:35:00* Test Item Value Reference Range Interpretation Comments WHITE BLOOD CELL (test code = WBC) 3.92 x10 3/uL 4.5-11.0 L RED BLOOD CELL (test code = RBC) 4.74 x10 6/uL 3.54-5.02 N HEMOGLOBIN (test code = HGB) 9.4 g/dL 11.0-15.0 L HEMATOCRIT (test code = HCT) 29.8 % 33.0-45.0 L MEAN CELL VOLUME (test code = MCV) 62.9 fL 81.0-99.0 L MEAN CELL HGB (test code = MCH) 19.8 pg 27.0-33.0 L MEAN CELL HGB CONCETRATION (test code = MCHC) 31.5 g/dL 33.0-37. 0 L RED CELL DISTRIBUTION WIDTH CV (test code = RDW) 24.0 % 11.5- 14.5 H RED CELL DISTRIBUTION WIDTH SD (test code = RDW-SD) 50.9 fL 37 .0-54.0 N PLATELET COUNT (test code = PLT) 364 x10 3/uL 150-400 N IMMATURE PLATELET FRACTION (test code = IPF) 4.6 % 0.9-11.2 N NEUTROPHIL % (test code = NT%) 49.7 % 56.0-77.0 L IMMATURE GRANULOCYTE % (test code = IG%) 0.8 % 0.0-2.0 N LYMPHOCYTE % (test code = LY%) 29.3 % 14.0-32.0 N MONOCYTE % (test code = MO%) 14.8 % 4.8-9.0 H EOSINOPHIL % (test code = EO%) 4.1 % 0.3-3.7 H BASOPHIL % (test code = BA%) 1.3 % 0.0-2.0 N NUCLEATED RBC % (test code = NRBC%) 0.0 % 0-0 N NEUTROPHIL # (test code = NT#) 1.95 x10 3/uL 2.0-7.6 L IMMATURE GRANULOCYTE # (test code = IG#) 0.03 x10 3/uL 0.00-0.03 N LYMPHOCYTE # (test code = LY#) 1.15 x10 3/uL 1.0-3.8 N MONOCYTE # (test code = MO#) 0.58 x10 3/uL 0.1-0.8 N EOSINOPHIL # (test code = EO#) 0.16 x10 3/uL 0.0-0.2 N BASOPHIL # (test code = BA#) 0.05 x10 3/uL 0.0-0.2 N NUCLEATED RBC # (test code = NRBC#) 0.00 x10 3/uL 0.0-0.1 N MANUAL DIFF REQUIRED (test code = MDIFF) NO RBC [id number] 07:35:00* Test Item Value Reference Range Interpretation Comments ANISOCYTOSIS (test code = ANISO) BASIC METABOLIC [id number] 07:31:00* Test Item Value Reference Range Interpretation Comments SODIUM (test code = NA) 126 mEq/L 134-147 L POTASSIUM (test code = K) 3.3 mEq/L 3.4-5.0 L CHLORIDE (test code = CL) 92 mEq/L 100-108 L CARBON DIOXIDE (test code = CO2) 27 mEq/L 21-33 N ANION GAP (test code = GAP) 10 0-20 N GLUCOSE (test code = GLU) 110 mg/dL 70-110 N BLOOD UREA NITROGEN (test code = BUN) 16 mg/dL 7-18 N GLOMERULAR FILTRATION RATE (test code = GFR) 43.9 70-80 L Units of measure = ml/min/1.73 m2 CREATININE (test code = CREAT) 1.2 mg/dL 0.6-1.3 N CALCIUM (test code = CA) 8.7 mg/dL 8.0-10.5 N [id number] 07:31:00* Test Item Value Reference Range Interpretation Comments PHOSPHOROUS (test code = PHOS) 3.3 MG/DL 2.5-4.9 N [id number] 07:31:00* Test Item Value Reference Range Interpretation Comments MAGNESIUM (test code = MAG) 1.70 mg/dL 1.8-2.4 L BASIC METABOLIC [id number] 19:52:00* Test Item Value Reference Range Interpretation Comments SODIUM (test code = NA) 127 mEq/L 134-147 L POTASSIUM (test code = K) 3.6 mEq/L 3.4-5.0 N CHLORIDE (test code = CL) 92 mEq/L 100-108 L CARBON DIOXIDE (test code = CO2) 27 mEq/L 21-33 N ANION GAP (test code = GAP) 12 0-20 N GLUCOSE (test code = GLU) 102 mg/dL 70-110 N BLOOD UREA NITROGEN (test code = BUN) 17 mg/dL 7-18 N GLOMERULAR FILTRATION RATE (test code = GFR) 48.6 70-80 L Units of measure = ml/min/1.73 m2 CREATININE (test code = CREAT) 1.1 mg/dL 0.6-1.3 N CALCIUM (test code = CA) 8.5 mg/dL 8.0-10.5 N CBC W/AUTO [id number] 08:19:00* Test Item Value Reference Range Interpretation Comments WHITE BLOOD CELL (test code = WBC) 4.22 x10 3/uL 4.5-11.0 L RED BLOOD CELL (test code = RBC) 4.11 x10 6/uL 3.54-5.02 N HEMOGLOBIN (test code = HGB) 8.3 g/dL 11.0-15.0 L HEMATOCRIT (test code = HCT) 26.3 % 33.0-45.0 L MEAN CELL VOLUME (test code = MCV) 64.0 fL 81.0-99.0 L MEAN CELL HGB (test code = MCH) 20.2 pg 27.0-33.0 L MEAN CELL HGB CONCETRATION (test code = MCHC) 31.6 g/dL 33.0-37. 0 L RED CELL DISTRIBUTION WIDTH CV (test code = RDW) 24.0 % 11.5- 14.5 H RED CELL DISTRIBUTION WIDTH SD (test code = RDW-SD) 50.6 fL 37 .0-54.0 N PLATELET COUNT (test code = PLT) 346 x10 3/uL 150-400 N IMMATURE PLATELET FRACTION (test code = IPF) 3.5 % 0.9-11.2 N MEAN PLATELET VOLUME (test code = MPV) 10.2 fL 7.0-9.0 H NEUTROPHIL % (test code = NT%) 47.5 % 56.0-77.0 L IMMATURE GRANULOCYTE % (test code = IG%) 0.7 % 0.0-2.0 N LYMPHOCYTE % (test code = LY%) 31.0 % 14.0-32.0 N MONOCYTE % (test code = MO%) 13.7 % 4.8-9.0 H EOSINOPHIL % (test code = EO%) 5.7 % 0.3-3.7 H BASOPHIL % (test code = BA%) 1.4 % 0.0-2.0 N NUCLEATED RBC % (test code = NRBC%) 0.0 % 0-0 N NEUTROPHIL # (test code = NT#) 2.00 x10 3/uL 2.0-7.6 N IMMATURE GRANULOCYTE # (test code = IG#) 0.03 x10 3/uL 0.00-0.03 N LYMPHOCYTE # (test code = LY#) 1.31 x10 3/uL 1.0-3.8 N MONOCYTE # (test code = MO#) 0.58 x10 3/uL 0.1-0.8 N EOSINOPHIL # (test code = EO#) 0.24 x10 3/uL 0.0-0.2 H BASOPHIL # (test code = BA#) 0.06 x10 3/uL 0.0-0.2 N NUCLEATED RBC # (test code = NRBC#) 0.00 x10 3/uL 0.0-0.1 N MANUAL DIFF REQUIRED (test code = MDIFF) NO BASIC METABOLIC [id number] 08:12:00* Test Item Value Reference Range Interpretation Comments SODIUM (test code = NA) 130 mEq/L 134-147 L POTASSIUM (test code = K) 3.4 mEq/L 3.4-5.0 N CHLORIDE (test code = CL) 96 mEq/L 100-108 L CARBON DIOXIDE (test code = CO2) 25 mEq/L 21-33 N ANION GAP (test code = GAP) 12 0-20 N GLUCOSE (test code = GLU) 84 mg/dL 70-110 N BLOOD UREA NITROGEN (test code = BUN) 19 mg/dL 7-18 H GLOMERULAR FILTRATION RATE (test code = GFR) 48.6 70-80 L Units of measure = ml/min/1.73 m2 CREATININE (test code = CREAT) 1.1 mg/dL 0.6-1.3 N CALCIUM (test code = CA) 8.5 mg/dL 8.0-10.5 N [id number] 08:12:00* Test Item Value Reference Range Interpretation Comments PHOSPHOROUS (test code = PHOS) 3.1 MG/DL 2.5-4.9 N [id number] 08:12:00* Test Item Value Reference Range Interpretation Comments MAGNESIUM (test code = MAG) 1.70 mg/dL 1.8-2.4 L - US ABDOMEN [id number] 08:23:00 Name: KELLY GROVES [facility] : 1945 Age/S: 73 / F [address] [place] [address] Unit #: [id number] Loc: G[place] [address] Phys: Carlton Ramos MD Acct: [id number] Dis Date: Status: ADM IN PHONE #: [phone] Exam Date: 09/23/2019815 FAX #: [phone] Reason: o.5 cm hepatic lesion on CT scan EXAMS: CPT CODE: [id number] US ABDOMEN LTD [id number] EXAM: US ABDOMEN LIMITED DATE: 09/23/2019 6:22 AM : 1945; Age: 73 years y/o Female INDICATION: o.5 cm hepatic lesion on CT scan COMPARISON: CT September 22, 2019 TECHNIQUE: Multiplanar grayscale and color Doppler ultrasound of the right upper quadrant. FINDINGS: Liver: 5 mm prior noted hypoattenuating lesion in the anterior left lobe is not well seen on the ultrasound. Echogenicity: Normal. Surface: Normal. Main portal vein: Patent with hepatopedal flow. Bile ducts: Common bile duct diameter: 0.4 cm. Intrahepatic ducts: Normal. Gallbladder: Surgically absent. Pancreas: Limited by bowel gas. Right kidney: Size: 9.1 cm. Hydronephrosis: None. Echogenicity: Normal. Calculi: None. Cysts/Masses: None. Other: None. IMPRESSION: 5 mm prior noted hypoattenuating hepatic lesion in the anterior left lobe is not well seen on the ultrasound. SL: [id number] PAGE 1 Signed Report (CONTINUED) Name: KELLY GROVES [facility] : 1945 Age/S: 73 / F [address] [place] [address] Unit #: [id number] Loc: [place] [address] Phys: Carlton Ramos MD Acct: [id number] Dis Date: Status: ADM IN PHONE #: [phone] Exam Date: 09/23/201916 FAX #: [phone] Reason: o.5 cm hepatic lesion on CT scan EXAMS: CPT CODE: [id number] US ABDOMEN LTD [id number] <Continued> at 0823 Reported and signed by: Luis Melendrez D.O. CC: Carlton Ramos MD; Candice Mullen MD Technologist: Amanda Saucedo Trnscb Date/Time: 09/23/2019 (822) t.SDR.MP37 Orig Print D/T: S: 09/23/2019 (825) Probe: PAGE 2 Signed Report BASIC METABOLIC PANEL 2019-09-23 08:19:00* Test Item Value Reference Range Interpretation Comments SODIUM (test code = NA) 131 mEq/L 134-147 L POTASSIUM (test code = K) 3.2 mEq/L 3.4-5.0 L CHLORIDE (test code = CL) 96 mEq/L 100-108 L CARBON DIOXIDE (test code = CO2) 26 mEq/L 21-33 N ANION GAP (test code = GAP) 12 0-20 N GLUCOSE (test code = GLU) 92 mg/dL 70-110 N BLOOD UREA NITROGEN (test code = BUN) 17 mg/dL 7-18 N GLOMERULAR FILTRATION RATE (test code = GFR) 48.6 70-80 L Units of measure = ml/min/1.73 m2 CREATININE (test code = CREAT) 1.1 mg/dL 0.6-1.3 N CALCIUM (test code = CA) 9.0 mg/dL 8.0-10.5 N - CT ABD PELVIS [id number] 18:37:00 Name: KELLY GROVES [facility] : 1945 Age/S: 73 / F [address] [place] [address] Unit #: [id number] Loc: [place] [address] Phys: Carlton Ramos MD Acct: [id number] Dis Date: Status: ADM IN PHONE #: [phone] Exam Date: 09/22/20191801 FAX #: [phone] Reason: history of pancreatic cancer, peristent hyponat EXAMS: CPT CODE: [id number] CT ABD PELVIS W/CONT 56552 STUDY: - CT ABD PELVIS W/CONT 09/22/2019 11:06 AM Ordering Physician: Carlton Ramos MD Patient Name: KELLY GROVES MR: [id number] : 1945; Age: 73 years y/o Female Clinical Indication: history of pancreatic cancer, peristent hyponatremia Comparison: None TECHNIQUE: Multiple contiguous postcontrast transaxial CT images were obtained from the diaphragm through the symphysis pubis.Sagittal and coronal reformatted images were prepared. IV CONTRAST: 100cc Omnipaque 300 DOSE: CT imaging performed at this location utilizes radiation dose optimization technique which includes one or more of the followin) Automated exposure control; 2) Adjustment of the mA and/or kV according to patient's size; 3) Use of iterative reconstruction techniques. DLP (mGy-cm): 313 CT ABDOMEN AND PELVIS WITH CONTRAST: VISUALIZED LUNG BASES: Trace right pleural effusion. BOWEL: Normal nonobstructed bowel gas pattern. APPENDIX: The appendix is not identified with certainty, but no pericecal inflammation is appreciated. STOMACH: Normal for degree of distention. PERITONEUM AND MESENTERY: Free Air: No evidence of pneumoperitoneum. Free Fluid: Trace amount of fluid in the pelvis Mesenteric and peritoneal fat: Normal without focal le lisa or inflammation. LYMPH NODES: No lymphadenopathy or mas s. VASCULAR: Abdominal Aorta: Normal caliber mildly atherosc lerotic abdominal aorta. IVC: Normal caliber nonenhanced. PAGE 1 Signed Report (CONTINUED) N fawn: KELLY GROVES [facility] : 0 1945 Age/S: 73 / F [address] [place] [address] Blvd Unit #: [id number] Loc: [place] [address] Phys: Shai Ramos MD Acct: [id number] Dis D ate: Status: ADM IN PHONE #: [phone] Exam Date: 09/22/2019 1802 FAX #: [phone] Reason: history of pancreatic cancer, peristent hyponat EXAMS: CPT CODE: [id number] CT ABD PELVIS W/ CONT 45289 <Continued> ABDOMINAL ORGANS: Liver: 0.5 cm hypodense lesion in the anterior left hepatic lobe (series 2 image 12) Gallbladder: Postoperative change of cholecystectomy. Biliary Tree: Normal without dilatation. Kidneys: Normal size and morphology without discrete lesion or hydronephrosis. Adrenal Glands: Normal size and m orphology without discrete lesion. Pancreas: Postoperative changes from pancreatic body and tail resection Spleen: Normal size and morphology without discrete lesion. PELVIC ORGANS: Urinary bladder: Normal nonenhanced appropriate for degree of distention. Reproductive organs: The uterus and ovaries are not id entified. SOFT TISSUES: No suspicious soft tissue lesion or abnorm ality. OSSEOUS STRUCTURES: Mild spinal degenerative change without fracture, dislocation, or focal osseous lesion. Moderate leftward curvatu re of the lumbar spine. IMPRESSION: 1. Postoperative changes from partial pancreatic resection 2. Trace right pleural effusion 3. Small amount of nonspecific free fluid in the pelvis. Postoperative changes from hysterectomy no carlos manuel. 4. 0.5 cm hypodense lesion in the anterior left hepatic lobe, incompletely characterized PAGE 2 Signed Report (CONTINUED) Name: KELLY GROVES [facility] : 1945 Age/S: 73 / F [address] [facility] Unit #: [id number] Loc: [place] [address] Phys: Carlton Ramos MD Acct: [id number] Dis Date: Status: ADM IN PHONE #: [phone] Exam Date: 09/22/20191801 FAX #: [phone] Reason: history of pancreatic cancer, per istent hyponat EXAMS: CPT CODE : [id number] CT ABD PELVIS W/CONT 45278 <Continued> SL: AP-H at 1837 Reported and signed by: Ivan Patel M.D. CC: Carlton Ramos MD; Candice Mullen MD Technologist:Vanessa Llanes RT(R)(CT) CTDI: DLP: Trnscb Date/Time: 09/22/2019 (1836) t.ANDREAR.AP24 Orig Print D/T: S: 09/22/2019 (1839) PAGE 3 Signed Report CBC W/AUTO [id number] 08:51:00* Test Item Value Reference Range Interpretation Comments WHITE BLOOD CELL (test code = WBC) 5.32 x10 3/uL 4.5-11.0 N RED BLOOD CELL (test code = RBC) 4.51 x10 6/uL 3.54-5.02 N HEMOGLOBIN (test code = HGB) 9.2 g/dL 11.0-15.0 L HEMATOCRIT (test code = HCT) 28.7 % 33.0-45.0 L MEAN CELL VOLUME (test code = MCV) 63.6 fL 81.0-99.0 L MEAN CELL HGB (test code = MCH) 20.4 pg 27.0-33.0 L MEAN CELL HGB CONCETRATION (test code = MCHC) 32.1 g/dL 33.0-37. 0 L RED CELL DISTRIBUTION WIDTH CV (test code = RDW) 24.4 % 11.5- 14.5 H RED CELL DISTRIBUTION WIDTH SD (test code = RDW-SD) 50.9 fL 37 .0-54.0 N PLATELET COUNT (test code = PLT) 379 x10 3/uL 150-400 N IMMATURE PLATELET FRACTION (test code = IPF) 3.9 % 0.9-11.2 N NEUTROPHIL % (test code = NT%) 50.2 % 56.0-77.0 L IMMATURE GRANULOCYTE % (test code = IG%) 1.1 % 0.0-2.0 N LYMPHOCYTE % (test code = LY%) 30.5 % 14.0-32.0 N MONOCYTE % (test code = MO%) 13.5 % 4.8-9.0 H EOSINOPHIL % (test code = EO%) 3.4 % 0.3-3.7 N BASOPHIL % (test code = BA%) 1.3 % 0.0-2.0 N NUCLEATED RBC % (test code = NRBC%) 0.0 % 0-0 N NEUTROPHIL # (test code = NT#) 2.67 x10 3/uL 2.0-7.6 N IMMATURE GRANULOCYTE # (test code = IG#) 0.06 x10 3/uL 0.00-0.03 H LYMPHOCYTE # (test code = LY#) 1.62 x10 3/uL 1.0-3.8 N MONOCYTE # (test code = MO#) 0.72 x10 3/uL 0.1-0.8 N EOSINOPHIL # (test code = EO#) 0.18 x10 3/uL 0.0-0.2 N BASOPHIL # (test code = BA#) 0.07 x10 3/uL 0.0-0.2 N NUCLEATED RBC # (test code = NRBC#) 0.00 x10 3/uL 0.0-0.1 N MANUAL DIFF REQUIRED (test code = MDIFF) NO BASIC METABOLIC [id number] 08:26:00* Test Item Value Reference Range Interpretation Comments SODIUM (test code = NA) 128 mEq/L 134-147 L POTASSIUM (test code = K) 3.8 mEq/L 3.4-5.0 N CHLORIDE (test code = CL) 97 mEq/L 100-108 L CARBON DIOXIDE (test code = CO2) 21 mEq/L 21-33 N ANION GAP (test code = GAP) 14 0-20 N GLUCOSE (test code = GLU) 85 mg/dL 70-110 N BLOOD UREA NITROGEN (test code = BUN) 14 mg/dL 7-18 N GLOMERULAR FILTRATION RATE (test code = GFR) 61.2 70-80 L Units of measure = ml/min/1.73 m2 CREATININE (test code = CREAT) 0.9 mg/dL 0.6-1.3 N CALCIUM (test code = CA) 8.4 mg/dL 8.0-10.5 N [id number] 08:26:00* Test Item Value Reference Range Interpretation Comments PHOSPHOROUS (test code = PHOS) 3.1 MG/DL 2.5-4.9 N [id number] 08:26:00* Test Item Value Reference Range Interpretation Comments MAGNESIUM (test code = MAG) 1.70 mg/dL 1.8-2.4 L [id number] 23:17:00* Test Item Value Reference Range Interpretation Comments SODIUM (test code = NA) 126 mEq/L 134-147 L COMMENTS: Draw serum sodium levels q6hrs for the first 24 hours & q12hrs for theComment: next 24 hrs with initiation of Tolvaptan or for any dose change.[id number] 10:00:00* Test Item Value Reference Range Interpretation Comments SODIUM (test code = NA) 130 mEq/L 134-147 L COMMENTS: Draw serum sodium levels q6hrs for the first 24 hours & q12hrs for theComment: next 24 hrs with initiation of Tolvaptan or for any dose change.BASIC METABOLIC [id number] 04:48:00* Test Item Value Reference Range Interpretation Comments SODIUM (test code = NA) 129 mEq/L 134-147 L POTASSIUM (test code = K) 3.6 mEq/L 3.4-5.0 N CHLORIDE (test code = CL) 95 mEq/L 100-108 L CARBON DIOXIDE (test code = CO2) 24 mEq/L 21-33 N ANION GAP (test code = GAP) 14 0-20 N GLUCOSE (test code = GLU) 88 mg/dL 70-110 N BLOOD UREA NITROGEN (test code = BUN) 14 mg/dL 7-18 GLOMERULAR FILTRATION RATE (test code = GFR) 61.2 70-80 L Units of measure = ml/min/1.73 m2 CREATININE (test code = CREAT) 0.9 mg/dL 0.6-1.3 N CALCIUM (test code = CA) 8.6 mg/dL 8.0-10.5 N [id number] 04:48:00* Test Item Value Reference Range Interpretation Comments PHOSPHOROUS (test code = PHOS) 3.6 MG/DL 2.5-4.9 N [id number] 04:48:00* Test Item Value Reference Range Interpretation Comments MAGNESIUM (test code = MAG) 1.80 mg/dL 1.8-2.4 N CBC W/AUTO [id number] 04:31:00* Test Item Value Reference Range Interpretation Comments WHITE BLOOD CELL (test code = WBC) 5.43 x10 3/uL 4.5-11.0 N RED BLOOD CELL (test code = RBC) 4.39 x10 6/uL 3.54-5.02 N HEMOGLOBIN (test code = HGB) 8.8 g/dL 11.0-15.0 L HEMATOCRIT (test code = HCT) 27.7 % 33.0-45.0 L MEAN CELL VOLUME (test code = MCV) 63.1 fL 81.0-99.0 L MEAN CELL HGB (test code = MCH) 20.0 pg 27.0-33.0 L MEAN CELL HGB CONCETRATION (test code = MCHC) 31.8 g/dL 33.0-37. 0 L RED CELL DISTRIBUTION WIDTH CV (test code = RDW) 24.0 % 11.5- 14.5 H RED CELL DISTRIBUTION WIDTH SD (test code = RDW-SD) 49.6 fL 37 .0-54.0 N PLATELET COUNT (test code = PLT) 341 x10 3/uL 150-400 N IMMATURE PLATELET FRACTION (test code = IPF) 3.8 % 0.9-11.2 N NEUTROPHIL % (test code = NT%) 54.3 % 56.0-77.0 L IMMATURE GRANULOCYTE % (test code = IG%) 1.3 % 0.0-2.0 N LYMPHOCYTE % (test code = LY%) 27.4 % 14.0-32.0 N MONOCYTE % (test code = MO%) 13.4 % 4.8-9.0 H EOSINOPHIL % (test code = EO%) 2.9 % 0.3-3.7 N BASOPHIL % (test code = BA%) 0.7 % 0.0-2.0 N NUCLEATED RBC % (test code = NRBC%) 0.4 % 0-0 H NEUTROPHIL # (test code = NT#) 2.94 x10 3/uL 2.0-7.6 N IMMATURE GRANULOCYTE # (test code = IG#) 0.07 x10 3/uL 0.00-0.03 H LYMPHOCYTE # (test code = LY#) 1.49 x10 3/uL 1.0-3.8 N MONOCYTE # (test code = MO#) 0.73 x10 3/uL 0.1-0.8 N EOSINOPHIL # (test code = EO#) 0.16 x10 3/uL 0.0-0.2 N BASOPHIL # (test code = BA#) 0.04 x10 3/uL 0.0-0.2 N NUCLEATED RBC # (test code = NRBC#) 0.02 x10 3/uL 0.0-0.1 N MANUAL DIFF REQUIRED (test code = MDIFF) NO [id number] 22:44:00* Test Item Value Reference Range Interpretation Comments SODIUM (test code = NA) 130 mEq/L 134-147 L COMMENTS: Draw serum sodium levels q6hrs for the first 24 hours & q12hrs for theComment: next 24 hrs with initiation of Tolvaptan or for any dose change.[id number] 16:24:00* Test Item Value Reference Range Interpretation Comments SODIUM (test code = NA) 129 mEq/L 134-147 L COMMENTS: Draw serum sodium levels q6hrs for the first 24 hours & q12hrs for theComment: next 24 hrs with initiation of Tolvaptan or for any dose change.- CT NECK W/O [id number] 15:53:00 Name: KELLY GROVES [facility] : 1945 Age/S: 73 / F [address] [place] [address] Unit #: [id number] Loc: [place] [address] Phys: Carlton Ramos MD Acct: [id number] Dis Date: Status: ADM IN PHONE #: [phone] Exam Date: 09/20/2019 1457 FAX #: [phone] Reason: Hyponatremia/rule out malignancy EXAMS: CPT CODE: [id number] CT NECK W/O CONTRAST [address]55[address] CT neck without contrast: Multiplanar helical imaging acquired through the neck without IV contrast. CT imaging performed at this location utilizes radiation dose optimization techniques which include one or more of the following: -Automated exposure control -Adjustment of the mA and/or kV according to patient size -Use of iterative reconstruction technique CT Radiation Dose DLP 591 mGy-cm HISTORY: Hyponatremia. COMPARISON: None. FINDINGS: Exam is limited without lack of IV contrast. No evidence of a neck mass or cervical adenopathy. Small nonspecific submental and submandibular lymph nodes, largest 6 mm short axis diameter. No supraclavicular adenopathy is found. Submandibular and parotid glands are symmetric. Base of tongue, nasopharynx, epiglottis and level of true vocal cords unremarkable. No subglottic airway narrowing or displacement. Artifact the cervical vertebral body alignment. Degener ative disc narrowing C5-6 and C6-7. No bony lytic changes IMPRESSION: No acute finding SL: [id number] at 1553 Reported and signed by: Nikita Guerin M.D. CC: Carlton Ramos MD; Candice Mullen MD Technologist:Salma Bowen RT(R)(CT) CTDI: DLP: Trnscb D ate/Time: 09/20/2019 (9473) GermánETG Orig Print D/T: S: 09/20/2019 (7506) PAGE 1 Signed Report - CT CHEST W/O [id number] 15:38:00 Name: KELLY GROVES [facility] : 1945 Age/S: 73 / F [address] [place] [address] Unit #: [id number] Loc: [place] [address] Phys: Carlton Ramos MD Acct: [id number] Dis Date: Status: ADM IN PHONE #: [phone] Exam Date: 09/20/20191455 FAX #: [phone] Reason: Hyponatremia/rule out malignancy EXAMS: CPT CODE: [id number] CT CHEST W/O CONTRAST [address] without contrast: Multiplanar helical imaging acquired through the chest without IV contrast. CT imaging performed at this location utilizes radiation dose optimization techniques which include one or more of the following: -Automated exposure control -Adjustment of the mA and/or kV according to patient size -Use of iterative reconstruction technique CT Radiation Dose DLP 410 mGy-cm HISTORY: Hyponatremia. COM PARISON: Chest x-ray 09/11/2019 FINDINGS: Thyroid lobes are symmetr ic. Midline trachea without displacement or narrowing. Scattered calcifi cation in the thoracic aorta without an aneurysm. No mediastinal mass or adenopathy. Small nonspecific left hilar lymph nodes. Coronary artery ca lcifications are found. Trace bilateral pleural fluid collections. Image s carried into the upper abdomen show cholecystectomy clips. Atelectatic changes in each lung base on the lung window. No lung mass or nodule. No areas of consolidation. Small calcified granuloma left lower lobe. Review on bone window shows mild multiple level degenerative disc disease in the thoracic spine with scoliosis. No acute vertebral compression IMPRESSION: 1. Small bilateral pleural fluid collections with atelectatic changes in the lung bases. 2. Degenerative spine with scoliosis area 3. Cholecystectomy SL: [id number] at 1538 Rep orted and signed by: Nikita Guerin M.D. PAGE 1 Signed Report (CONTINUED) Name: KELLY GROVES [facility] : 1945 Age/S: 73 / F [address] [facility] Unit #: [id number] Loc: [place] [address] Phys: Carlton Ramos MD Acct: [id number] Dis Date: Status: ADM IN PHONE #: [phone] Exam Date: 09/20/2019 1454 FAX #: [phone] Reason: Hyponatremia/rule out ma lignancy EXAMS: CPT CODE: [id number] CT CHEST W/O CONTRAST 74066 <Continued> CC: Carlton Ramos MD; Candice Mullen MD Technologist:Salma Bowen, RT(R)(CT) CTDI: DLP: Trnscb Date/Time: 09/20/2019 (4634) t.SDR.ETG Orig Print D/T: S: 09/20/2019 (2852) PAGE 2 Signed Report BASIC METABOLIC PANEL 2019-09-20 08:50:00* Test Item Value Reference Range Interpretation Comments SODIUM (test code = NA) 128 mEq/L 134-147 L POTASSIUM (test code = K) 3.6 mEq/L 3.4-5.0 N CHLORIDE (test code = CL) 95 mEq/L 100-108 L CARBON DIOXIDE (test code = CO2) 23 mEq/L 21-33 N ANION GAP (test code = GAP) 14 0-20 N GLUCOSE (test code = GLU) 98 mg/dL 70-110 N BLOOD UREA NITROGEN (test code = BUN) 11 mg/dL 7-18 N GLOMERULAR FILTRATION RATE (test code = GFR) 61.2 70-80 L Units of measure = ml/min/1.73 m2 CREATININE (test code = CREAT) 0.9 mg/dL 0.6-1.3 N CALCIUM (test code = CA) 8.8 mg/dL 8.0-10.5 N [id number] 08:50:00* Test Item Value Reference Range Interpretation Comments PHOSPHOROUS (test code = PHOS) 3.5 MG/DL 2.5-4.9 N [id number] 08:50:00* Test Item Value Reference Range Interpretation Comments MAGNESIUM (test code = MAG) 1.80 mg/dL 1.8-2.4 N BASIC METABOLIC [id number] 09:02:00* Test Item Value Reference Range Interpretation Comments SODIUM (test code = NA) 133 mEq/L 134-147 L POTASSIUM (test code = K) 3.9 mEq/L 3.4-5.0 N CHLORIDE (test code = CL) 101 mEq/L 100-108 N CARBON DIOXIDE (test code = CO2) 24 mEq/L 21-33 N ANION GAP (test code = GAP) 12 0-20 N GLUCOSE (test code = GLU) 88 mg/dL 70-110 N BLOOD UREA NITROGEN (test code = BUN) 12 mg/dL 7-18 N GLOMERULAR FILTRATION RATE (test code = GFR) 54.2 70-80 L Units of measure = ml/min/1.73 m2 CREATININE (test code = CREAT) 1.0 mg/dL 0.6-1.3 N CALCIUM (test code = CA) 8.8 mg/dL 8.0-10.5 N [id number] 09:02:00* Test Item Value Reference Range Interpretation Comments PHOSPHOROUS (test code = PHOS) 3.2 MG/DL 2.5-4.9 N [id number] 09:02:00* Test Item Value Reference Range Interpretation Comments MAGNESIUM (test code = MAG) 1.90 mg/dL 1.8-2.4 N CBC W/AUTO [id number] 08:44:00* Test Item Value Reference Range Interpretation Comments WHITE BLOOD CELL (test code = WBC) 4.62 x10 3/uL 4.5-11.0 N RED BLOOD CELL (test code = RBC) 4.28 x10 6/uL 3.54-5.02 N HEMOGLOBIN (test code = HGB) 8.8 g/dL 11.0-15.0 L HEMATOCRIT (test code = HCT) 27.6 % 33.0-45.0 L MEAN CELL VOLUME (test code = MCV) 64.5 fL 81.0-99.0 L MEAN CELL HGB (test code = MCH) 20.6 pg 27.0-33.0 L MEAN CELL HGB CONCETRATION (test code = MCHC) 31.9 g/dL 33.0-37. 0 L RED CELL DISTRIBUTION WIDTH CV (test code = RDW) 23.9 % 11.5- 14.5 H RED CELL DISTRIBUTION WIDTH SD (test code = RDW-SD) 51.1 fL 37 .0-54.0 N PLATELET COUNT (test code = PLT) 337 x10 3/uL 150-400 N IMMATURE PLATELET FRACTION (test code = IPF) 3.2 % 0.9-11.2 N MEAN PLATELET VOLUME (test code = MPV) 10.6 fL 7.0-9.0 H NEUTROPHIL % (test code = NT%) 50.1 % 56.0-77.0 L IMMATURE GRANULOCYTE % (test code = IG%) 0.9 % 0.0-2.0 N LYMPHOCYTE % (test code = LY%) 30.7 % 14.0-32.0 N MONOCYTE % (test code = MO%) 13.6 % 4.8-9.0 H EOSINOPHIL % (test code = EO%) 3.2 % 0.3-3.7 N BASOPHIL % (test code = BA%) 1.5 % 0.0-2.0 N NUCLEATED RBC % (test code = NRBC%) 0.0 % 0-0 N NEUTROPHIL # (test code = NT#) 2.31 x10 3/uL 2.0-7.6 N IMMATURE GRANULOCYTE # (test code = IG#) 0.04 x10 3/uL 0.00-0.03 H LYMPHOCYTE # (test code = LY#) 1.42 x10 3/uL 1.0-3.8 N MONOCYTE # (test code = MO#) 0.63 x10 3/uL 0.1-0.8 N EOSINOPHIL # (test code = EO#) 0.15 x10 3/uL 0.0-0.2 N BASOPHIL # (test code = BA#) 0.07 x10 3/uL 0.0-0.2 N NUCLEATED RBC # (test code = NRBC#) 0.00 x10 3/uL 0.0-0.1 N MANUAL DIFF REQUIRED (test code = MDIFF) NO RBC [id number] 08:44:00* Test Item Value Reference Range Interpretation Comments POLYCHROMASIA (test code = POLC) SLIGHT HYPOCHROMIA (test code = HYPO) 3+ ANISOCYTOSIS (test code = ANISO) 2+ MICROCYTOSIS (test code = MICR) 2+ CBC W/AUTO [id number] 07:49:00* Test Item Value Reference Range Interpretation Comments WHITE BLOOD CELL (test code = WBC) 4.62 x10 3/uL 4.5-11.0 N RED BLOOD CELL (test code = RBC) 4.28 x10 6/uL 3.54-5.02 N HEMOGLOBIN (test code = HGB) 8.8 g/dL 11.0-15.0 L HEMATOCRIT (test code = HCT) 27.6 % 33.0-45.0 L MEAN CELL VOLUME (test code = MCV) 64.5 fL 81.0-99.0 L MEAN CELL HGB (test code = MCH) 20.6 pg 27.0-33.0 L MEAN CELL HGB CONCETRATION (test code = MCHC) 31.9 g/dL 33.0-37. 0 L RED CELL DISTRIBUTION WIDTH CV (test code = RDW) 23.9 % 11.5- 14.5 H RED CELL DISTRIBUTION WIDTH SD (test code = RDW-SD) 51.1 fL 37 .0-54.0 N PLATELET COUNT (test code = PLT) 337 x10 3/uL 150-400 N IMMATURE PLATELET FRACTION (test code = IPF) 3.2 % 0.9-11.2 N MEAN PLATELET VOLUME (test code = MPV) 10.6 fL 7.0-9.0 H NEUTROPHIL % (test code = NT%) 50.1 % 56.0-77.0 L IMMATURE GRANULOCYTE % (test code = IG%) 0.9 % 0.0-2.0 N LYMPHOCYTE % (test code = LY%) 30.7 % 14.0-32.0 N MONOCYTE % (test code = MO%) 13.6 % 4.8-9.0 H EOSINOPHIL % (test code = EO%) 3.2 % 0.3-3.7 N BASOPHIL % (test code = BA%) 1.5 % 0.0-2.0 N NUCLEATED RBC % (test code = NRBC%) 0.0 % 0-0 N NEUTROPHIL # (test code = NT#) 2.31 x10 3/uL 2.0-7.6 N IMMATURE GRANULOCYTE # (test code = IG#) 0.04 x10 3/uL 0.00-0.03 H LYMPHOCYTE # (test code = LY#) 1.42 x10 3/uL 1.0-3.8 N MONOCYTE # (test code = MO#) 0.63 x10 3/uL 0.1-0.8 N EOSINOPHIL # (test code = EO#) 0.15 x10 3/uL 0.0-0.2 N BASOPHIL # (test code = BA#) 0.07 x10 3/uL 0.0-0.2 N NUCLEATED RBC # (test code = NRBC#) 0.00 x10 3/uL 0.0-0.1 N MANUAL DIFF REQUIRED (test code = MDIFF) NO RBC [id number] 07:49:00* Test Item Value Reference Range Interpretation Comments ANISOCYTOSIS (test code = ANISO) CBC W/AUTO [id number] 07:49:00* Test Item Value Reference Range Interpretation Comments WHITE BLOOD CELL (test code = WBC) 4.62 x10 3/uL 4.5-11.0 N RED BLOOD CELL (test code = RBC) 4.28 x10 6/uL 3.54-5.02 N HEMOGLOBIN (test code = HGB) 8.8 g/dL 11.0-15.0 L HEMATOCRIT (test code = HCT) 27.6 % 33.0-45.0 L MEAN CELL VOLUME (test code = MCV) 64.5 fL 81.0-99.0 L MEAN CELL HGB (test code = MCH) 20.6 pg 27.0-33.0 L MEAN CELL HGB CONCETRATION (test code = MCHC) 31.9 g/dL 33.0-37. 0 L RED CELL DISTRIBUTION WIDTH CV (test code = RDW) 23.9 % 11.5- 14.5 H RED CELL DISTRIBUTION WIDTH SD (test code = RDW-SD) 51.1 fL 37 .0-54.0 N PLATELET COUNT (test code = PLT) 337 x10 3/uL 150-400 N IMMATURE PLATELET FRACTION (test code = IPF) 3.2 % 0.9-11.2 N MEAN PLATELET VOLUME (test code = MPV) 10.6 fL 7.0-9.0 H NEUTROPHIL % (test code = NT%) 50.1 % 56.0-77.0 L IMMATURE GRANULOCYTE % (test code = IG%) 0.9 % 0.0-2.0 N LYMPHOCYTE % (test code = LY%) 30.7 % 14.0-32.0 N MONOCYTE % (test code = MO%) 13.6 % 4.8-9.0 H EOSINOPHIL % (test code = EO%) 3.2 % 0.3-3.7 N BASOPHIL % (test code = BA%) 1.5 % 0.0-2.0 N NUCLEATED RBC % (test code = NRBC%) 0.0 % 0-0 N NEUTROPHIL # (test code = NT#) 2.31 x10 3/uL 2.0-7.6 N IMMATURE GRANULOCYTE # (test code = IG#) 0.04 x10 3/uL 0.00-0.03 H LYMPHOCYTE # (test code = LY#) 1.42 x10 3/uL 1.0-3.8 N MONOCYTE # (test code = MO#) 0.63 x10 3/uL 0.1-0.8 N EOSINOPHIL # (test code = EO#) 0.15 x10 3/uL 0.0-0.2 N BASOPHIL # (test code = BA#) 0.07 x10 3/uL 0.0-0.2 N NUCLEATED RBC # (test code = NRBC#) 0.00 x10 3/uL 0.0-0.1 N MANUAL DIFF REQUIRED (test code = MDIFF) NO RBC [id number] 07:49:00* Test Item Value Reference Range Interpretation Comments ANISOCYTOSIS (test code = ANISO) [id number] 12:05:00* Test Item Value Reference Range Interpretation Comments SODIUM (test code = NA) 133 mEq/L 134-147 L BASIC METABOLIC [id number] 03:29:00* Test Item Value Reference Range Interpretation Comments SODIUM (test code = NA) 132 mEq/L 134-147 L POTASSIUM (test code = K) 4.1 mEq/L 3.4-5.0 N CHLORIDE (test code = CL) 102 mEq/L 100-108 N CARBON DIOXIDE (test code = CO2) 26 mEq/L 21-33 N ANION GAP (test code = GAP) 8 0-20 N GLUCOSE (test code = GLU) 104 mg/dL 70-110 N BLOOD UREA NITROGEN (test code = BUN) 11 mg/dL 7-18 N GLOMERULAR FILTRATION RATE (test code = GFR) 54.2 70-80 L Units of measure = ml/min/1.73 m2 CREATININE (test code = CREAT) 1.0 mg/dL 0.6-1.3 N CALCIUM (test code = CA) 8.6 mg/dL 8.0-10.5 N [id number] 03:29:00* Test Item Value Reference Range Interpretation Comments PHOSPHOROUS (test code = PHOS) 2.8 MG/DL 2.5-4.9 N [id number] 03:29:00* Test Item Value Reference Range Interpretation Comments MAGNESIUM (test code = MAG) 2.10 mg/dL 1.8-2.4 CBC W/AUTO [id number] 03:13:00* Test Item Value Reference Range Interpretation Comments WHITE BLOOD CELL (test code = WBC) 4.26 x10 3/uL 4.5-11.0 L RED BLOOD CELL (test code = RBC) 3.59 x10 6/uL 3.54-5.02 N HEMOGLOBIN (test code = HGB) 7.0 g/dL 11.0-15.0 L HEMATOCRIT (test code = HCT) 21.8 % 33.0-45.0 L MEAN CELL VOLUME (test code = MCV) 60.7 fL 81.0-99.0 L MEAN CELL HGB (test code = MCH) 19.5 pg 27.0-33.0 L MEAN CELL HGB CONCETRATION (test code = MCHC) 32.1 g/dL 33.0-37. 0 L RED CELL DISTRIBUTION WIDTH CV (test code = RDW) 19.8 % 11.5- 14.5 H RED CELL DISTRIBUTION WIDTH SD (test code = RDW-SD) 41.7 fL 37 .0-54.0 N PLATELET COUNT (test code = PLT) 340 x10 3/uL 150-400 N IMMATURE PLATELET FRACTION (test code = IPF) 2.4 % 0.9-11.2 N MEAN PLATELET VOLUME (test code = MPV) 10.6 fL 7.0-9.0 H NEUTROPHIL % (test code = NT%) 49.1 % 56.0-77.0 L IMMATURE GRANULOCYTE % (test code = IG%) 0.9 % 0.0-2.0 N LYMPHOCYTE % (test code = LY%) 31.9 % 14.0-32.0 N MONOCYTE % (test code = MO%) 15.5 % 4.8-9.0 H EOSINOPHIL % (test code = EO%) 1.4 % 0.3-3.7 N BASOPHIL % (test code = BA%) 1.2 % 0.0-2.0 N NUCLEATED RBC % (test code = NRBC%) 0.0 % 0-0 N NEUTROPHIL # (test code = NT#) 2.09 x10 3/uL 2.0-7.6 N IMMATURE GRANULOCYTE # (test code = IG#) 0.04 x10 3/uL 0.00-0.03 H LYMPHOCYTE # (test code = LY#) 1.36 x10 3/uL 1.0-3.8 N MONOCYTE # (test code = MO#) 0.66 x10 3/uL 0.1-0.8 N EOSINOPHIL # (test code = EO#) 0.06 x10 3/uL 0.0-0.2 N BASOPHIL # (test code = BA#) 0.05 x10 3/uL 0.0-0.2 N NUCLEATED RBC # (test code = NRBC#) 0.00 x10 3/uL 0.0-0.1 N MANUAL DIFF REQUIRED (test code = MDIFF) NO [id number] 19:02:00* Test Item Value Reference Range Interpretation Comments SODIUM (test code = NA) 132 mEq/L 134-147 L COMMENTS: Draw serum sodium levels q6hrs for the first 24 hours & q12hrs for theComment: next 24 hrs with initiation of Tolvaptan or for any dose change.[id number] 13:12:00* Test Item Value Reference Range Interpretation Comments SODIUM (test code = NA) 128 mEq/L 134-147 L COMMENTS: Draw serum sodium levels q6hrs for the first 24 hours & q12hrs for theComment: next 24 hrs with initiation of Tolvaptan or for any dose change.UR OSMOLALITY [id number] 11:08:00* Test Item Value Reference Range Interpretation Comments UR OSMOLALITY RANDOM (test code = OSMOU) 461 MOS/KG 300-1000 N URINALYSIS [id number] 11:08:00* Test Item Value Reference Range Interpretation Comments UA COLOR (test code = COLU) YELLOW YEL/STRAW UA APPEARANCE (test code = APPU) CLEAR CLEAR UA GLUCOSE DIPSTICK (test code = DGLUU) NEGATIVE NEGATIVE UA BILIRUBIN DIPSTICK (test code = BILU) NEGATIVE NEGATIVE UA KETONE DIPSTICK (test code = KETU) NEGATIVE NEGATIVE UA SPECIFIC GRAVITY (test code = SGU) 1.021 1.005-1.030 N UA BLOOD DIPSTICK (test code = WONG) NEGATIVE NEGATIVE UA PH DIPSTICK (test code = ROB) 5.0 5.0-7.0 N UA PROTEIN DIPSTICK (test code = PROU) NEGATIVE NEGATIVE UA UROBILINIOGEN DIPSTICK (test code = URO) 0.2 mg/dL 0.2-1.0 UA NITRITE DIPSTICK (test code = CIARA) NEGATIVE NEGATIVE UA LEUKOCYTE ESTERASE DIPSTICK (test code = LEUU) TRACE NEGA TIVE A UA RBC (test code = RBCU) 0-3 RBC/HPF 0-3 UA WBC NO REFLEX (test code = WBCUCL) 4-9 WBC/HPF 0-3 A UA BACTERIA (test code = BACU) TRACE /HPF NONE SEEN UA SQUAMOUS CELLS (test code = SQU) 0-5 /HPF NONE SEEN UA MUCUS (test code = MUCU) TRACE /LPF NONE SEEN UR SODIUM [id number] 11:08:00* Test Item Value Reference Range Interpretation Comments UR SODIUM RANDOM (test code = TREVOR) 81 MEQ/L The Reference Range and Method Performance specificationshave not been established for this fluid. The test resultshould be correlated into the clinical context forinterpretation. UR POTASSIUM RANDOM (test code = KU) 36.8 MEQ/L The Reference Range and Method Performance specificationshave not been established for this fluid. The test resultshould be correlated into the clinical context forinterpretation. UR PROTEIN [id number] 11:08:00* Test Item Value Reference Range Interpretation Comments UR PROTEIN RANDOM (test code = PROTU) 19 mg/dL Note: Change in UNITS of MEASUREMENT. The Reference Range and Method Performance specificationshave not been established for this fluid. The test resultshould be correlated into the clinical context forinterpretation. UR CREATININE [id number] 11:08:00* Test Item Value Reference Range Interpretation Comments UR CREATININE RANDOM (test code = CREATU) 67.0 mg/dL The Reference Range and Method Performance specificationshave not been established for this fluid. The test resultshould be correlated into the clinical context forinterpretation. UR OSMOLALITY [id number] 11:08:00* Test Item Value Reference Range Interpretation Comments UR OSMOLALITY RANDOM (test code = OSMOU) 461 MOS/KG 300-1000 URINALYSIS [id number] 08:26:00* Test Item Value Reference Range Interpretation Comments UA COLOR (test code = COLU) YELLOW YEL/STRAW UA APPEARANCE (test code = APPU) CLEAR CLEAR UA GLUCOSE DIPSTICK (test code = DGLUU) NEGATIVE NEGATIVE UA BILIRUBIN DIPSTICK (test code = BILU) NEGATIVE NEGATIVE UA KETONE DIPSTICK (test code = KETU) NEGATIVE NEGATIVE UA SPECIFIC GRAVITY (test code = SGU) 1.021 1.005-1.030 N UA BLOOD DIPSTICK (test code = WONG) NEGATIVE NEGATIVE UA PH DIPSTICK (test code = ROB) 5.0 5.0-7.0 N UA PROTEIN DIPSTICK (test code = PROU) NEGATIVE NEGATIVE UA UROBILINIOGEN DIPSTICK (test code = URO) 0.2 mg/dL 0.2-1.0 UA NITRITE DIPSTICK (test code = CIARA) NEGATIVE NEGATIVE UA LEUKOCYTE ESTERASE DIPSTICK (test code = LEUU) TRACE NEGA TIVE A UA RBC (test code = RBCU) 0-3 RBC/HPF 0-3 UA WBC NO REFLEX (test code = WBCUCL) 4-9 WBC/HPF 0-3 A UA BACTERIA (test code = BACU) TRACE /HPF NONE SEEN UA SQUAMOUS CELLS (test code = SQU) 0-5 /HPF NONE SEEN UA MUCUS (test code = MUCU) TRACE /LPF NONE SEEN UR SODIUM [id number] 08:26:00* Test Item Value Reference Range Interpretation Comments UR SODIUM RANDOM (test code = TREVOR) 81 MEQ/L The Reference Range and Method Performance specificationshave not been established for this fluid. The test resultshould be correlated into the clinical context forinterpretation. UR POTASSIUM RANDOM (test code = KU) 36.8 MEQ/L The Reference Range and Method Performance specificationshave not been established for this fluid. The test resultshould be correlated into the clinical context forinterpretation. UR PROTEIN [id number] 08:26:00* Test Item Value Reference Range Interpretation Comments UR PROTEIN RANDOM (test code = PROTU) 19 mg/dL Note: Change in UNITS of MEASUREMENT. The Reference Range and Method Performance specificationshave not been established for this fluid. The test resultshould be correlated into the clinical context forinterpretation. UR CREATININE [id number] 08:26:00* Test Item Value Reference Range Interpretation Comments UR CREATININE RANDOM (test code = CREATU) 67.0 mg/dL The Reference Range and Method Performance specificationshave not been established for this fluid. The test resultshould be correlated into the clinical context forinterpretation. UR OSMOLALITY [id number] 08:26:00* Test Item Value Reference Range Interpretation Comments UR OSMOLALITY RANDOM (test code = OSMOU) URINALYSIS [id number] 07:34:00* Test Item Value Reference Range Interpretation Comments UA COLOR (test code = COLU) YELLOW YEL/STRAW UA APPEARANCE (test code = APPU) CLEAR CLEAR UA GLUCOSE DIPSTICK (test code = DGLUU) NEGATIVE NEGATIVE UA BILIRUBIN DIPSTICK (test code = BILU) NEGATIVE NEGATIVE UA KETONE DIPSTICK (test code = KETU) NEGATIVE NEGATIVE UA SPECIFIC GRAVITY (test code = SGU) 1.021 1.005-1.030 N UA BLOOD DIPSTICK (test code = WONG) NEGATIVE NEGATIVE UA PH DIPSTICK (test code = ROB) 5.0 5.0-7.0 N UA PROTEIN DIPSTICK (test code = PROU) NEGATIVE NEGATIVE UA UROBILINIOGEN DIPSTICK (test code = URO) 0.2 mg/dL 0.2-1.0 UA NITRITE DIPSTICK (test code = CIARA) NEGATIVE NEGATIVE UA LEUKOCYTE ESTERASE DIPSTICK (test code = LEUU) TRACE NEGA TIVE A UA RBC (test code = RBCU) 0-3 RBC/HPF 0-3 UA WBC NO REFLEX (test code = WBCUCL) 4-9 WBC/HPF 0-3 A UA BACTERIA (test code = BACU) TRACE /HPF NONE SEEN UA SQUAMOUS CELLS (test code = SQU) 0-5 /HPF NONE SEEN UA MUCUS (test code = MUCU) TRACE /LPF NONE SEEN UR SODIUM [id number] 07:34:00* Test Item Value Reference Range Interpretation Comments UR SODIUM RANDOM (test code = TREVOR) MEQ/L UR POTASSIUM RANDOM (test code = KU) MEQ/L UR PROTEIN [id number] 07:34:00* Test Item Value Reference Range Interpretation Comments UR PROTEIN RANDOM (test code = PROTU) mg/dL UR CREATININE [id number] 07:34:00* Test Item Value Reference Range Interpretation Comments UR CREATININE RANDOM (test code = CREATU) mg/dL UR OSMOLALITY [id number] 07:34:00* Test Item Value Reference Range Interpretation Comments UR OSMOLALITY RANDOM (test code = OSMOU) BASIC METABOLIC [id number] 03:44:00* Test Item Value Reference Range Interpretation Comments SODIUM (test code = NA) 128 mEq/L 134-147 L POTASSIUM (test code = K) 4.4 mEq/L 3.4-5.0 N CHLORIDE (test code = CL) 99 mEq/L 100-108 L CARBON DIOXIDE (test code = CO2) 22 mEq/L 21-33 N ANION GAP (test code = GAP) 11 0-20 N GLUCOSE (test code = GLU) 110 mg/dL 70-110 N BLOOD UREA NITROGEN (test code = BUN) 14 mg/dL 7-18 N GLOMERULAR FILTRATION RATE (test code = GFR) 61.2 70-80 L Units of measure = ml/min/1.73 m2 CREATININE (test code = CREAT) 0.9 mg/dL 0.6-1.3 N CALCIUM (test code = CA) 8.2 mg/dL 8.0-10.5 N [id number] 03:44:00* Test Item Value Reference Range Interpretation Comments PHOSPHOROUS (test code = PHOS) 3.2 MG/DL 2.5-4.9 N [id number] 03:44:00* Test Item Value Reference Range Interpretation Comments MAGNESIUM (test code = MAG) 1.60 mg/dL 1.8-2.4 L CBC W/AUTO [id number] 03:33:00* Test Item Value Reference Range Interpretation Comments WHITE BLOOD CELL (test code = WBC) 4.70 x10 3/uL 4.5-11.0 N RED BLOOD CELL (test code = RBC) 3.86 x10 6/uL 3.54-5.02 N HEMOGLOBIN (test code = HGB) 7.3 g/dL 11.0-15.0 L HEMATOCRIT (test code = HCT) 23.5 % 33.0-45.0 L MEAN CELL VOLUME (test code = MCV) 60.9 fL 81.0-99.0 L MEAN CELL HGB (test code = MCH) 18.9 pg 27.0-33.0 L MEAN CELL HGB CONCETRATION (test code = MCHC) 31.1 g/dL 33.0-37. 0 L RED CELL DISTRIBUTION WIDTH CV (test code = RDW) 19.8 % 11.5- 14.5 H RED CELL DISTRIBUTION WIDTH SD (test code = RDW-SD) 42.0 fL 37 .0-54.0 N PLATELET COUNT (test code = PLT) 365 x10 3/uL 150-400 N MEAN PLATELET VOLUME (test code = MPV) 10.1 fL 7.0-9.0 H NEUTROPHIL % (test code = NT%) 63.6 % 56.0-77.0 N IMMATURE GRANULOCYTE % (test code = IG%) 0.6 % 0.0-2.0 N LYMPHOCYTE % (test code = LY%) 20.0 % 14.0-32.0 N MONOCYTE % (test code = MO%) 13.0 % 4.8-9.0 H EOSINOPHIL % (test code = EO%) 1.5 % 0.3-3.7 N BASOPHIL % (test code = BA%) 1.3 % 0.0-2.0 N NUCLEATED RBC % (test code = NRBC%) 0.4 % 0-0 H NEUTROPHIL # (test code = NT#) 2.99 x10 3/uL 2.0-7.6 N IMMATURE GRANULOCYTE # (test code = IG#) 0.03 x10 3/uL 0.00-0.03 N LYMPHOCYTE # (test code = LY#) 0.94 x10 3/uL 1.0-3.8 L MONOCYTE # (test code = MO#) 0.61 x10 3/uL 0.1-0.8 N EOSINOPHIL # (test code = EO#) 0.07 x10 3/uL 0.0-0.2 N BASOPHIL # (test code = BA#) 0.06 x10 3/uL 0.0-0.2 N NUCLEATED RBC # (test code = NRBC#) 0.02 x10 3/uL 0.0-0.1 N MANUAL DIFF REQUIRED (test code = MDIFF) NO [id number] 21:18:00* Test Item Value Reference Range Interpretation Comments SODIUM (test code = NA) 128 mEq/L 134-147 L [id number] 15:23:00* Test Item Value Reference Range Interpretation Comments SODIUM (test code = NA) 124 mEq/L 134-147 LL COMMENTS: Draw serum sodium levels q6hrs for the first 24 hours & q12hrs for theComment: next 24 hrs with initiation of Tolvaptan or for any dose change.PROTHROMBIN [id number] 07:44:00* Test Item Value Reference Range Interpretation Comments PROTHROMBIN TIME PATIENT (test code = PTP) 14.8 SECONDS 9.3-12.9 H INTERNATIONAL NORMAL RATIO (test code = INR) 1.4 0.8-1.2 H TARGET INR BY INDICATION Indication INR1. Prophylaxis of venous thrombosis 2.0 - 3.0 (orthopedic surgery), Prophylaxis of venous thrombosis (other than high-risk surgery), Treatment of Deep Vein Thrombosis/Pulmonary Embolism, Prevention of systemic embolism - Tissue heart valves, Acute Myocardial Infarction (to prevent systemic embolism), Valvular heart disease, Atrial Fibrillation, Bileaflet mechanical valve in aortic position.2. Mechanical prosthetic valves (high risk), 2.5 - 3.5 Presence of Lupus Anticoagulant or Antiphospholipid Antibodies, Prevention of systemic embolism - Acute Myocardial Infarction (to prevent recurrent infarct). BASIC METABOLIC [id number] 06:33:00* Test Item Value Reference Range Interpretation Comments SODIUM (test code = NA) 125 mEq/L 134-147 L POTASSIUM (test code = K) 4.5 mEq/L 3.4-5.0 N CHLORIDE (test code = CL) 95 mEq/L 100-108 L CARBON DIOXIDE (test code = CO2) 22 mEq/L 21-33 N ANION GAP (test code = GAP) 13 0-20 N GLUCOSE (test code = GLU) 115 mg/dL 70-110 H BLOOD UREA NITROGEN (test code = BUN) 17 mg/dL 7-18 N GLOMERULAR FILTRATION RATE (test code = GFR) 61.2 70-80 L Units of measure = ml/min/1.73 m2 CREATININE (test code = CREAT) 0.9 mg/dL 0.6-1.3 N CALCIUM (test code = CA) 8.5 mg/dL 8.0-10.5 N COMMENTS: To be done morning of Heart [id number] 06:33:00* Test Item Value Reference Range Interpretation Comments PHOSPHOROUS (test code = PHOS) 3.6 MG/DL 2.5-4.9 N COMMENTS: To be done morning of Heart [id number] 06:33:00* Test Item Value Reference Range Interpretation Comments MAGNESIUM (test code = MAG) 1.80 mg/dL 1.8-2.4 N COMMENTS: To be done morning of Heart CathTHROMBOPLASTIN TIME [id number] 06:23:00* Test Item Value Reference Range Interpretation Comments THROMBOPLASTIN TIME PARTIAL (test code = PTT) 37.2 Seconds 25.0-39. 5 N Therapeutic Range: 50.4 - 88.3 Seconds Effective 09/09/2018 CBC W/AUTO [id number] 06:13:00* Test Item Value Reference Range Interpretation Comments WHITE BLOOD CELL (test code = WBC) 4.83 x10 3/uL 4.5-11.0 N RED BLOOD CELL (test code = RBC) 4.28 x10 6/uL 3.54-5.02 N HEMOGLOBIN (test code = HGB) 8.1 g/dL 11.0-15.0 L HEMATOCRIT (test code = HCT) 25.9 % 33.0-45.0 L MEAN CELL VOLUME (test code = MCV) 60.5 fL 81.0-99.0 L MEAN CELL HGB (test code = MCH) 18.9 pg 27.0-33.0 L MEAN CELL HGB CONCETRATION (test code = MCHC) 31.3 g/dL 33.0-37. 0 L RED CELL DISTRIBUTION WIDTH CV (test code = RDW) 20.2 % 11.5- 14.5 H RED CELL DISTRIBUTION WIDTH SD (test code = RDW-SD) 41.5 fL 37 .0-54.0 N PLATELET COUNT (test code = PLT) 371 x10 3/uL 150-400 N IMMATURE PLATELET FRACTION (test code = IPF) 2.8 % 0.9-11.2 N MEAN PLATELET VOLUME (test code = MPV) 10.3 fL 7.0-9.0 H NEUTROPHIL % (test code = NT%) 60.3 % 56.0-77.0 N IMMATURE GRANULOCYTE % (test code = IG%) 0.8 % 0.0-2.0 N LYMPHOCYTE % (test code = LY%) 24.2 % 14.0-32.0 N MONOCYTE % (test code = MO%) 11.0 % 4.8-9.0 H EOSINOPHIL % (test code = EO%) 2.9 % 0.3-3.7 N BASOPHIL % (test code = BA%) 0.8 % 0.0-2.0 N NUCLEATED RBC % (test code = NRBC%) 0.4 % 0-0 H NEUTROPHIL # (test code = NT#) 2.91 x10 3/uL 2.0-7.6 N IMMATURE GRANULOCYTE # (test code = IG#) 0.04 x10 3/uL 0.00-0.03 H LYMPHOCYTE # (test code = LY#) 1.17 x10 3/uL 1.0-3.8 N MONOCYTE # (test code = MO#) 0.53 x10 3/uL 0.1-0.8 N EOSINOPHIL # (test code = EO#) 0.14 x10 3/uL 0.0-0.2 N BASOPHIL # (test code = BA#) 0.04 x10 3/uL 0.0-0.2 N NUCLEATED RBC # (test code = NRBC#) 0.02 x10 3/uL 0.0-0.1 N MANUAL DIFF REQUIRED (test code = MDIFF) NO COMMENTS: To be done morning of Heart CathIMMUNOELECTROPHORESIS [id number] 13:08:00* Test Item Value Reference Range Interpretation Comments IMMUNOGLOBULIN A (test code = FAM) 146 mg/dL 64-422 IMMUNOGLOBULIN G (test code = IMMG) 1527 mg/dL 586-1602 Please note reference interval change IMMUNOGLOBULIN M (test code = IMMM) 188 mg/dL 26-217 Performed At: [facility] [id number] [facility] [address] [place], [place] [id number] CN MD Ph:[phone] At: [facility] [address] [id number] Kyle L MD Ph:[phone] IMMUNOFIXATION SERUM (test code = IMMFIXS) () The immunofixation pattern appears unremarkable. Evidenceof monoclonal protein is not apparent. TOTAL IRON BINDING [id number] 13:08:00* Test Item Value Reference Range Interpretation Comments SERUM IRON (test code = IRON) 60 mcg/dL 35-150 N TOTAL IRON BINDING CAPACITY (test code = TIBC) 286 mcg/dL 260-445 N UIBC (test code = UIBC) 226 mcg/dL IRON SATURATION (test code = FESAT) 21.0 % 14-34 N VITAMIN [id number] 13:08:00* Test Item Value Reference Range Interpretation Comments VITAMIN B12 (test code = VITB12) 511 pg/mL 193-986 N [id number] 13:08:00* Test Item Value Reference Range Interpretation Comments FERRITIN (test code = ARBEN) 53.4 ng/mL 11.0-306.8 N BASIC METABOLIC [id number] 06:59:00* Test Item Value Reference Range Interpretation Comments SODIUM (test code = NA) 126 mEq/L 134-147 L POTASSIUM (test code = K) 4.6 mEq/L 3.4-5.0 N CHLORIDE (test code = CL) 97 mEq/L 100-108 L CARBON DIOXIDE (test code = CO2) 22 mEq/L 21-33 N ANION GAP (test code = GAP) 12 0-20 N GLUCOSE (test code = GLU) 118 mg/dL 70-110 H BLOOD UREA NITROGEN (test code = BUN) 20 mg/dL 7-18 H GLOMERULAR FILTRATION RATE (test code = GFR) 48.6 70-80 L Units of measure = ml/min/1.73 m2 CREATININE (test code = CREAT) 1.1 mg/dL 0.6-1.3 N CALCIUM (test code = CA) 8.6 mg/dL 8.0-10.5 N COMMENTS: To be done morning of Heart [id number] 06:59:00* Test Item Value Reference Range Interpretation Comments PHOSPHOROUS (test code = PHOS) 3.6 MG/DL 2.5-4.9 N COMMENTS: To be done morning of Heart [id number] 06:59:00* Test Item Value Reference Range Interpretation Comments MAGNESIUM (test code = MAG) 1.80 mg/dL 1.8-2.4 N COMMENTS: To be done morning of Heart CathPROTHROMBIN [id number] 06:39:00* Test Item Value Reference Range Interpretation Comments PROTHROMBIN TIME PATIENT (test code = PTP) 16.7 SECONDS 9.3-12.9 H INTERNATIONAL NORMAL RATIO (test code = INR) 1.5 0.8-1.2 H TARGET INR BY INDICATION Indication INR1. Prophylaxis of venous thrombosis 2.0 - 3.0 (orthopedic surgery), Prophylaxis of venous thrombosis (other than high-risk surgery), Treatment of Deep Vein Thrombosis/Pulmonary Embolism, Prevention of systemic embolism - Tissue heart valves, Acute Myocardial Infarction (to prevent systemic embolism), Valvular heart disease, Atrial Fibrillation, Bileaflet mechanical valve in aortic position.2. Mechanical prosthetic valves (high risk), 2.5 - 3.5 Presence of Lupus Anticoagulant or Antiphospholipid Antibodies, Prevention of systemic embolism - Acute Myocardial Infarction (to prevent recurrent infarct). THROMBOPLASTIN TIME [id number] 06:39:00* Test Item Value Reference Range Interpretation Comments THROMBOPLASTIN TIME PARTIAL (test code = PTT) 39.8 Seconds 25.0-39. 5 H Therapeutic Range: 50.4 - 88.3 Seconds Effective 09/09/2018 CBC W/AUTO [id number] 06:30:00* Test Item Value Reference Range Interpretation Comments WHITE BLOOD CELL (test code = WBC) 4.97 x10 3/uL 4.5-11.0 N RED BLOOD CELL (test code = RBC) 4.18 x10 6/uL 3.54-5.02 N HEMOGLOBIN (test code = HGB) 8.1 g/dL 11.0-15.0 L HEMATOCRIT (test code = HCT) 25.3 % 33.0-45.0 L MEAN CELL VOLUME (test code = MCV) 60.5 fL 81.0-99.0 L MEAN CELL HGB (test code = MCH) 19.4 pg 27.0-33.0 L MEAN CELL HGB CONCETRATION (test code = MCHC) 32.0 g/dL 33.0-37. 0 L RED CELL DISTRIBUTION WIDTH CV (test code = RDW) 19.9 % 11.5- 14.5 H RED CELL DISTRIBUTION WIDTH SD (test code = RDW-SD) 41.1 fL 37 .0-54.0 N PLATELET COUNT (test code = PLT) 364 x10 3/uL 150-400 N IMMATURE PLATELET FRACTION (test code = IPF) 2.8 % 0.9-11.2 N MEAN PLATELET VOLUME (test code = MPV) 10.5 fL 7.0-9.0 H NEUTROPHIL % (test code = NT%) 53.5 % 56.0-77.0 L IMMATURE GRANULOCYTE % (test code = IG%) 1.2 % 0.0-2.0 N LYMPHOCYTE % (test code = LY%) 25.4 % 14.0-32.0 N MONOCYTE % (test code = MO%) 12.9 % 4.8-9.0 H EOSINOPHIL % (test code = EO%) 5.2 % 0.3-3.7 H BASOPHIL % (test code = BA%) 1.8 % 0.0-2.0 N NUCLEATED RBC % (test code = NRBC%) 0.0 % 0-0 N NEUTROPHIL # (test code = NT#) 2.66 x10 3/uL 2.0-7.6 N IMMATURE GRANULOCYTE # (test code = IG#) 0.06 x10 3/uL 0.00-0.03 H LYMPHOCYTE # (test code = LY#) 1.26 x10 3/uL 1.0-3.8 N MONOCYTE # (test code = MO#) 0.64 x10 3/uL 0.1-0.8 N EOSINOPHIL # (test code = EO#) 0.26 x10 3/uL 0.0-0.2 H BASOPHIL # (test code = BA#) 0.09 x10 3/uL 0.0-0.2 N NUCLEATED RBC # (test code = NRBC#) 0.00 x10 3/uL 0.0-0.1 N MANUAL DIFF REQUIRED (test code = MDIFF) NO COMMENTS: To be done morning of Heart [facility] Coronavirus 03:43:00* Test Item Value Reference Range Interpretation Comments Novel Coronavirus 2019 Inhouse (test code = [id number]) Negative Negative Positive results are indicative of the presence vfBMBS-PwD-7 RNA, clinical correlation with patient historyand other diagnostic information is necessary to determinepatient infection status. Positive results do not rule outbacterial infection or co-infection with other viruses. Negative results do not preclude SARS-CoV-2 infection andshould not be used as the sole basis for patient managementdecisions. Negative results must be combined with otherclinical observations, patient history, and epidemiologicalinformation. Detection of SARS-CoV-2 RNA may be affected bysample collection methods, storage conditions, and/or stageof infection. Viral RNA mutations, vaccinations, antiviraltherapeutics, antibiotics, chemotherapeutic orimmunosuppressant drugs have not been evaluated for effectson detection. Results are for the identification of SARS-CoV-2 RNA usingthe [employer] M2000 System under the FDA Emergency UseAuthorization. The testing is performed by personneltrained in the procedures for the [employer] M2000 moleculardiagnostic SARS-CoV-2 assay in vitro. Testing Criteria: Preprocedure ScreeningCBC W/AUTO [id number] 11:19:00* Test Item Value Reference Range Interpretation Comments WHITE BLOOD CELL (test code = WBC) 4.87 x10 3/uL 4.5-11.0 N RED BLOOD CELL (test code = RBC) 3.94 x10 6/uL 3.54-5.02 N HEMOGLOBIN (test code = HGB) 7.5 g/dL 11.0-15.0 L HEMATOCRIT (test code = HCT) 23.8 % 33.0-45.0 L MEAN CELL VOLUME (test code = MCV) 60.4 fL 81.0-99.0 L MEAN CELL HGB (test code = MCH) 19.0 pg 27.0-33.0 L MEAN CELL HGB CONCETRATION (test code = MCHC) 31.5 g/dL 33.0-37. 0 L RED CELL DISTRIBUTION WIDTH CV (test code = RDW) 19.8 % 11.5- 14.5 H RED CELL DISTRIBUTION WIDTH SD (test code = RDW-SD) 41.1 fL 37 .0-54.0 N PLATELET COUNT (test code = PLT) 350 x10 3/uL 150-400 N IMMATURE PLATELET FRACTION (test code = IPF) 4.0 % 0.9-11.2 N MEAN PLATELET VOLUME (test code = MPV) 10.6 fL 7.0-9.0 H NEUTROPHIL % (test code = NT%) 37.0 % 56.0-77.0 L IMMATURE GRANULOCYTE % (test code = IG%) 0.4 % 0.0-2.0 N LYMPHOCYTE % (test code = LY%) 38.0 % 14.0-32.0 H MONOCYTE % (test code = MO%) 14.6 % 4.8-9.0 H EOSINOPHIL % (test code = EO%) 8.6 % 0.3-3.7 H BASOPHIL % (test code = BA%) 1.4 % 0.0-2.0 N NUCLEATED RBC % (test code = NRBC%) 0.4 % 0-0 H NEUTROPHIL # (test code = NT#) 1.80 x10 3/uL 2.0-7.6 L IMMATURE GRANULOCYTE # (test code = IG#) 0.02 x10 3/uL 0.00-0.03 N LYMPHOCYTE # (test code = LY#) 1.85 x10 3/uL 1.0-3.8 N MONOCYTE # (test code = MO#) 0.71 x10 3/uL 0.1-0.8 N EOSINOPHIL # (test code = EO#) 0.42 x10 3/uL 0.0-0.2 H BASOPHIL # (test code = BA#) 0.07 x10 3/uL 0.0-0.2 N NUCLEATED RBC # (test code = NRBC#) 0.02 x10 3/uL 0.0-0.1 N MANUAL DIFF REQUIRED (test code = MDIFF) NO RBC [id number] 11:19:00* Test Item Value Reference Range Interpretation Comments POLYCHROMASIA (test code = POLC) 1+ HYPOCHROMIA (test code = HYPO) SLIGHT POIKILOCYTOSIS (test code = POIK) 2+ BASOPHILIC STIPPLING (test code = STP) FEW ANISOCYTOSIS (test code = ANISO) 2+ MICROCYTOSIS (test code = MICR) 2+ TARGET CELLS (test code = TGT) 1+ TEAR DROP CELLS (test code = TEAR) SEEN ELLIPTOCYTES (test code = ELL) FEW OVALOCYTES (test code = OVAL) FEW SCHISTOCYTES (test code = GINA) FEW CBC W/AUTO [id number] 08:04:00* Test Item Value Reference Range Interpretation Comments WHITE BLOOD CELL (test code = WBC) 4.87 x10 3/uL 4.5-11.0 N RED BLOOD CELL (test code = RBC) 3.94 x10 6/uL 3.54-5.02 N HEMOGLOBIN (test code = HGB) 7.5 g/dL 11.0-15.0 L HEMATOCRIT (test code = HCT) 23.8 % 33.0-45.0 L MEAN CELL VOLUME (test code = MCV) 60.4 fL 81.0-99.0 L MEAN CELL HGB (test code = MCH) 19.0 pg 27.0-33.0 L MEAN CELL HGB CONCETRATION (test code = MCHC) 31.5 g/dL 33.0-37. 0 L RED CELL DISTRIBUTION WIDTH CV (test code = RDW) 19.8 % 11.5- 14.5 H RED CELL DISTRIBUTION WIDTH SD (test code = RDW-SD) 41.1 fL 37 .0-54.0 N PLATELET COUNT (test code = PLT) 350 x10 3/uL 150-400 N IMMATURE PLATELET FRACTION (test code = IPF) 4.0 % 0.9-11.2 N MEAN PLATELET VOLUME (test code = MPV) 10.6 fL 7.0-9.0 H NEUTROPHIL % (test code = NT%) 37.0 % 56.0-77.0 L IMMATURE GRANULOCYTE % (test code = IG%) 0.4 % 0.0-2.0 N LYMPHOCYTE % (test code = LY%) 38.0 % 14.0-32.0 H MONOCYTE % (test code = MO%) 14.6 % 4.8-9.0 H EOSINOPHIL % (test code = EO%) 8.6 % 0.3-3.7 H BASOPHIL % (test code = BA%) 1.4 % 0.0-2.0 N NUCLEATED RBC % (test code = NRBC%) 0.4 % 0-0 H NEUTROPHIL # (test code = NT#) 1.80 x10 3/uL 2.0-7.6 L IMMATURE GRANULOCYTE # (test code = IG#) 0.02 x10 3/uL 0.00-0.03 N LYMPHOCYTE # (test code = LY#) 1.85 x10 3/uL 1.0-3.8 N MONOCYTE # (test code = MO#) 0.71 x10 3/uL 0.1-0.8 N EOSINOPHIL # (test code = EO#) 0.42 x10 3/uL 0.0-0.2 H BASOPHIL # (test code = BA#) 0.07 x10 3/uL 0.0-0.2 N NUCLEATED RBC # (test code = NRBC#) 0.02 x10 3/uL 0.0-0.1 N MANUAL DIFF REQUIRED (test code = MDIFF) NO RBC [id number] 08:04:00* Test Item Value Reference Range Interpretation Comments ANISOCYTOSIS (test code = ANISO) CBC W/AUTO [id number] 08:04:00* Test Item Value Reference Range Interpretation Comments WHITE BLOOD CELL (test code = WBC) 4.87 x10 3/uL 4.5-11.0 N RED BLOOD CELL (test code = RBC) 3.94 x10 6/uL 3.54-5.02 N HEMOGLOBIN (test code = HGB) 7.5 g/dL 11.0-15.0 L HEMATOCRIT (test code = HCT) 23.8 % 33.0-45.0 L MEAN CELL VOLUME (test code = MCV) 60.4 fL 81.0-99.0 L MEAN CELL HGB (test code = MCH) 19.0 pg 27.0-33.0 L MEAN CELL HGB CONCETRATION (test code = MCHC) 31.5 g/dL 33.0-37. 0 L RED CELL DISTRIBUTION WIDTH CV (test code = RDW) 19.8 % 11.5- 14.5 H RED CELL DISTRIBUTION WIDTH SD (test code = RDW-SD) 41.1 fL 37 .0-54.0 N PLATELET COUNT (test code = PLT) 350 x10 3/uL 150-400 N IMMATURE PLATELET FRACTION (test code = IPF) 4.0 % 0.9-11.2 N MEAN PLATELET VOLUME (test code = MPV) 10.6 fL 7.0-9.0 H NEUTROPHIL % (test code = NT%) 37.0 % 56.0-77.0 L IMMATURE GRANULOCYTE % (test code = IG%) 0.4 % 0.0-2.0 N LYMPHOCYTE % (test code = LY%) 38.0 % 14.0-32.0 H MONOCYTE % (test code = MO%) 14.6 % 4.8-9.0 H EOSINOPHIL % (test code = EO%) 8.6 % 0.3-3.7 H BASOPHIL % (test code = BA%) 1.4 % 0.0-2.0 N NUCLEATED RBC % (test code = NRBC%) 0.4 % 0-0 H NEUTROPHIL # (test code = NT#) 1.80 x10 3/uL 2.0-7.6 L IMMATURE GRANULOCYTE # (test code = IG#) 0.02 x10 3/uL 0.00-0.03 N LYMPHOCYTE # (test code = LY#) 1.85 x10 3/uL 1.0-3.8 N MONOCYTE # (test code = MO#) 0.71 x10 3/uL 0.1-0.8 N EOSINOPHIL # (test code = EO#) 0.42 x10 3/uL 0.0-0.2 H BASOPHIL # (test code = BA#) 0.07 x10 3/uL 0.0-0.2 N NUCLEATED RBC # (test code = NRBC#) 0.02 x10 3/uL 0.0-0.1 N MANUAL DIFF REQUIRED (test code = MDIFF) NO RBC [id number] 08:04:00* Test Item Value Reference Range Interpretation Comments ANISOCYTOSIS (test code = ANISO) BASIC METABOLIC [id number] 07:50:00* Test Item Value Reference Range Interpretation Comments SODIUM (test code = NA) 127 mEq/L 134-147 L POTASSIUM (test code = K) 4.4 mEq/L 3.4-5.0 N CHLORIDE (test code = CL) 96 mEq/L 100-108 L CARBON DIOXIDE (test code = CO2) 23 mEq/L 21-33 N ANION GAP (test code = GAP) 12 0-20 N GLUCOSE (test code = GLU) 92 mg/dL 70-110 BLOOD UREA NITROGEN (test code = BUN) 15 mg/dL 7-18 N GLOMERULAR FILTRATION RATE (test code = GFR) 48.6 70-80 L Units of measure = ml/min/1.73 m2 CREATININE (test code = CREAT) 1.1 mg/dL 0.6-1.3 N CALCIUM (test code = CA) 8.8 mg/dL 8.0-10.5 N [id number] 07:50:00* Test Item Value Reference Range Interpretation Comments PHOSPHOROUS (test code = PHOS) 4.2 MG/DL 2.5-4.9 N [id number] 07:50:00* Test Item Value Reference Range Interpretation Comments MAGNESIUM (test code = MAG) 2.10 mg/dL 1.8-2.4 BASIC METABOLIC [id number] 17:15:00* Test Item Value Reference Range Interpretation Comments SODIUM (test code = NA) 126 mEq/L 134-147 L POTASSIUM (test code = K) 4.4 mEq/L 3.4-5.0 N CHLORIDE (test code = CL) 94 mEq/L 100-108 L CARBON DIOXIDE (test code = CO2) 26 mEq/L 21-33 N ANION GAP (test code = GAP) 10 0-20 N GLUCOSE (test code = GLU) 125 mg/dL 70-110 H BLOOD UREA NITROGEN (test code = BUN) 12 mg/dL 7-18 N GLOMERULAR FILTRATION RATE (test code = GFR) 43.9 70-80 L Units of measure = ml/min/1.73 m2 CREATININE (test code = CREAT) 1.2 mg/dL 0.6-1.3 N CALCIUM (test code = CA) 8.9 mg/dL 8.0-10.5 N - US RETROPERITONEAL [id number] 15:19:00 Name: KELLY GROVES [facility] : 1945 Age/S: 73 / F [address] [place] [address] Blvd Unit #: [id number] Loc: [place] [address] Phys: Carlton Ramos MD Acct: [id number] Dis Date: Status: ADM IN PHONE #: [phone] Exam Date: 09/13/2019 1404 FAX #: [phone] Reason: uncontrolled HTN/CKD EXAMS: CPT CODE: [id number] US RETROPERITONEAL COM 16434 Clinical Indication: Uncontrolled hypertension, chronic renal disease. Comparison: None. TECHNIQUE Multiple longitudinal and transverse real time sonographic images with Doppler analysis of the kidneys and urinary bladder are obtained. FINDINGS: KIDNEYS: The right kidney measures 8.8 cm. The left kidney measures 10.1 cm. The kidneys are normal in size, shape, contour, and position. The cortices are normal in thickness and echogenicity and the corticomedullary differentiation is maintained. There is no hydronephrosis and no nephr olithiasis or abnormal perinephric collections. There is a probable drome parvin hump involving the midpole of the left kidney. BLADDER: Scanning through the pelvis reveals the bladder to be partially dis tended with anechoic urine. ASCITES: No ascites noted. AORTA, IVC, RENAL DOPPLER: IVC and aorta are patent and unremar kable. There is no evidence for renal artery stenosis. RIGHT: Resistive indices within normal limits. Renal artery waveform and velociti es are unremarkable. Venous flow noted. LEFT: Resistive indice s within normal limits. Renal artery waveform and velocities are unremarka ble. Venous flow noted. IMPRESSION: 1. Unremarkabl e renal ultrasound and Doppler analysis without evidence for stenosis. PAGE 1 Signed Report (CONTINUED) Name: KELLY GROVES [facility] : 1945 Age/S: 73 / F [address] [place] [address] Unit #: [id number] Loc: [place] [address] Phys: Geoff Ramos MD Acct: [id number] Dis Date: Status: ADM IN PHONE #: Exam Date: 09/13/2019 1404 FAX #: Reason: uncontrolled HTN/CKD EXAMS: CPT CODE: [id number] [facility] 38627 <Continued> at 1519 Reported and signed by: Jonathan Dhillon M.D. CC: Carlton Ramos MD; Candice Mullen MD Technologist: Baron Rivas RDNC(AB) Trnscb Date/Time: 09/13/2019 (151) [email or web address] Orig Print D/T: S: 09/13/2019 (1522) Probe: PAGE 2 Signed Report - DUP AB/PEL/SC/[id number] 15:19:00 Name: KELLY GROVES [facility] : 1945 Age/S: 73 / F [address] [place] [address] Unit #: [id number] Loc: [place] [address] Phys: Carlton Ramos MD Acct: [id number] Dis Date: Status: ADM IN PHONE #: [phone] Exam Date: 09/13/2019 1404 FAX #: [phone] Reason: uncontrolled HTN/CKD EXAMS: CPT CODE: [id number] DUP AB/PEL/SC/LTD 87099 Clinical Indication: Uncontrolled hypertension, chronic renal disease. Comparison: None. TECHNIQUE Multiple longitudinal and transverse real time sonographic images with Doppler analysis of the kidneys and urinary bladder are obtained. FINDINGS: KIDNEYS: The right kidney measures 8.8 cm. The left kidney measures 10.1 cm. The kidneys are normal in size, shape, contour, and position. The cortices are normal in thickness and echogenicity and the corticomedullary differentiation is maintained. There is no hydronephrosis and no nephr olithiasis or abnormal perinephric collections. There is a probable drome parvin hump involving the midpole of the left kidney. BLADDER: Scanning through the pelvis reveals the bladder to be partially dis tended with anechoic urine. ASCITES: No ascites noted. AORTA, IVC, RENAL DOPPLER: IVC and aorta are patent and unremar kable. There is no evidence for renal artery stenosis. RIGHT: Resistive indices within normal limits. Renal artery waveform and velociti es are unremarkable. Venous flow noted. LEFT: Resistive indice s within normal limits. Renal artery waveform and velocities are unremarka ble. Venous flow noted. IMPRESSION: 1. Unremarkabl e renal ultrasound and Doppler analysis without evidence for stenosis. PAGE 1 Signed Report (CONTINUED) Name: KELLY GROVES [facility] : 1945 Age/S: 73 / F [address] [place] [address] Unit #: [id number] Loc: [place] [address] Phys: Geoff Ramos MD Acct: [id number] Dis Date: Status: ADM IN PHONE #: [phone] Exam Date: 09/13/2019 1407 FAX #: Reason: uncontrolled HTN/CKD EXAMS: CPT CODE: [id number] DUP AB/PEL/SC/[place] [address] <Continued> at 1519 Reported and signed by: Jonathan Dhillon M.D. CC: Carlton Ramos MD; Candice Mullen MD Technologist: Baron Rivas RDMS(AB) Trnscb Date/Time: 09/13/2019 (1519) [email or web address] Orig Print D/T: S: 09/13/2019 (3166) Probe: PAGE 2 Signed Report BASIC METABOLIC [id number] 08:36:00* Test Item Value Reference Range Interpretation Comments SODIUM (test code = NA) 126 mEq/L 134-147 L POTASSIUM (test code = K) 4.2 mEq/L 3.4-5.0 N CHLORIDE (test code = CL) 94 mEq/L 100-108 L CARBON DIOXIDE (test code = CO2) 24 mEq/L 21-33 N ANION GAP (test code = GAP) 12 0-20 N GLUCOSE (test code = GLU) 101 mg/dL 70-110 N BLOOD UREA NITROGEN (test code = BUN) 13 mg/dL 7-18 N GLOMERULAR FILTRATION RATE (test code = GFR) 43.9 70-80 L Units of measure = ml/min/1.73 m2 CREATININE (test code = CREAT) 1.2 mg/dL 0.6-1.3 N CALCIUM (test code = CA) 9.4 mg/dL 8.0-10.5 N HEPATIC FUNCTION [id number] 08:36:00* Test Item Value Reference Range Interpretation Comments TOTAL PROTEIN (test code = PROT) 7.2 g/dL 6.4-8.2 N ALBUMIN (test code = ALB) 3.20 g/dL 3.4-5.0 L BILIRUBIN TOTAL (test code = BILT) 0.5 MG/DL <1.5 N BILIRUBIN DIRECT (test code = BILD) 0.10 MG/DL 0.0-0.30 BILIRUBIN INDIRECT (test code = BILIND) 0.40 MG/DL SGOT/AST (test code = AST) 43 IUnit/L 15-37 H SGPT/ALT (test code = ALT) 41 IUnit/L 15-65 N ALKALINE PHOSPHATASE TOTAL (test code = ALKP) 47 IUnit/L 20-125 N [id number] 08:36:00* Test Item Value Reference Range Interpretation Comments PHOSPHOROUS (test code = PHOS) 4.1 MG/DL 2.5-4.9 N [id number] 08:36:00* Test Item Value Reference Range Interpretation Comments MAGNESIUM (test code = MAG) 1.60 mg/dL 1.8-2.4 L CBC W/AUTO [id number] 07:31:00* Test Item Value Reference Range Interpretation Comments WHITE BLOOD CELL (test code = WBC) 4.95 x10 3/uL 4.5-11.0 N RED BLOOD CELL (test code = RBC) 4.11 x10 6/uL 3.54-5.02 N HEMOGLOBIN (test code = HGB) 7.8 g/dL 11.0-15.0 L HEMATOCRIT (test code = HCT) 24.9 % 33.0-45.0 L MEAN CELL VOLUME (test code = MCV) 60.6 fL 81.0-99.0 L MEAN CELL HGB (test code = MCH) 19.0 pg 27.0-33.0 L MEAN CELL HGB CONCETRATION (test code = MCHC) 31.3 g/dL 33.0-37. 0 L RED CELL DISTRIBUTION WIDTH CV (test code = RDW) 19.8 % 11.5- 14.5 H RED CELL DISTRIBUTION WIDTH SD (test code = RDW-SD) 41.4 fL 37 .0-54.0 N PLATELET COUNT (test code = PLT) 343 x10 3/uL 150-400 N IMMATURE PLATELET FRACTION (test code = IPF) 4.0 % 0.9-11.2 N NEUTROPHIL % (test code = NT%) 51.4 % 56.0-77.0 L IMMATURE GRANULOCYTE % (test code = IG%) 0.6 % 0.0-2.0 N LYMPHOCYTE % (test code = LY%) 30.9 % 14.0-32.0 N MONOCYTE % (test code = MO%) 12.1 % 4.8-9.0 H EOSINOPHIL % (test code = EO%) 3.8 % 0.3-3.7 H BASOPHIL % (test code = BA%) 1.2 % 0.0-2.0 N NUCLEATED RBC % (test code = NRBC%) 0.0 % 0-0 N NEUTROPHIL # (test code = NT#) 2.54 x10 3/uL 2.0-7.6 N IMMATURE GRANULOCYTE # (test code = IG#) 0.03 x10 3/uL 0.00-0.03 N LYMPHOCYTE # (test code = LY#) 1.53 x10 3/uL 1.0-3.8 N MONOCYTE # (test code = MO#) 0.60 x10 3/uL 0.1-0.8 N EOSINOPHIL # (test code = EO#) 0.19 x10 3/uL 0.0-0.2 N BASOPHIL # (test code = BA#) 0.06 x10 3/uL 0.0-0.2 N NUCLEATED RBC # (test code = NRBC#) 0.00 x10 3/uL 0.0-0.1 N MANUAL DIFF REQUIRED (test code = MDIFF) NO IMMUNOELECTROPHORESIS [id number] 14:08:00* Test Item Value Reference Range Interpretation Comments IMMUNOGLOBULIN A (test code = FAM) IMMUNOGLOBULIN G (test code = IMMG) IMMUNOGLOBULIN M (test code = IMMM) IMMUNOFIXATION SERUM (test code = IMMFIXS) TOTAL IRON BINDING [id number] 14:08:00* Test Item Value Reference Range Interpretation Comments SERUM IRON (test code = IRON) 60 mcg/dL 35-150 N TOTAL IRON BINDING CAPACITY (test code = TIBC) 286 mcg/dL 260-445 N UIBC (test code = UIBC) 226 mcg/dL IRON SATURATION (test code = FESAT) 21.0 % 14-34 N VITAMIN [id number] 14:08:00* Test Item Value Reference Range Interpretation Comments VITAMIN B12 (test code = VITB12) 511 pg/mL 193-986 N [id number] 14:08:00* Test Item Value Reference Range Interpretation Comments FERRITIN (test code = ARBEN) 53.4 ng/mL 11.0-306.8 N [id number] 04:17:00* Test Item Value Reference Range Interpretation Comments TROPONIN-I (test code = TROPI) 0.096 ng/mL 0.000-0.045 HH Negative: <= 0.045 Positive: >= 0.046 Correlation with serial results, other cardiac markers andclinical findings is necessary to determine the clinicalsignificance of this result. Results using different methodologies should not be comparedto one another as quantitative results may vary by method. COMMENTS: 3 troponins total (including troponin done in ED)LIPOPROTEIN LDL 2019-09-12 01:43:00* Test Item Value Reference Range Interpretation Comments LIPOPROTEIN LDL (test code = LDL) 84 mg/dL 0-100 N <100 [id number] NEAR OPTIMAL/ABOVE [id number] HIGH>EI=028 VERY HIGH*Guidelines provided by the National Cholesterol EducationProgram Adult Treatment Panel III [id number] 01:00:00* Test Item Value Reference Range Interpretation Comments TROPONIN-I (test code = TROPI) 0.096 ng/mL 0.000-0.045 HH Negative: <= 0.045 Positive: >= 0.046 Correlation with serial results, other cardiac markers andclinical findings is necessary to determine the clinicalsignificance of this result. Results using different methodologies should not be comparedto one another as quantitative results may vary by method. COMMENTS: 3 troponins total (including troponin done in ED)- XR CHEST 1 V 2019-09-11 21:45:00 FAX: Yakov Santos MD [phone] [place]: St: REG Name: KELLY ABDI [facility] : [birth year] Age/S: 73/F [address] [place] [address] Blvd Unit #: [id number] Loc: G.ERS2 [place] [address] Phys: Yakov Santos MD Acct: [id number] Dis Date: Status: REG ER PHONE #: [phone] Exam Date: 09/11/20192141 FAX #: [phone] Reason: Chest Pain EXAMS: CPT CODE: [id number] XR CHEST 1 V 28291 Chest single view 09/11/2019 HISTORY: Chest pain. High blood pressure Comparison is made to 08/23/2019 FINDINGS: Mild cardiomegaly is unchanged. Aorta c ontains calcifications. No significant pleural fluid is present. No significant interstitial edema is present. There is an ill-defined opac ity in the right lower lung. No focal opacity within the left lung is pre sent. IMPRESSION: 1. Ill-defined opacity in right lower lung suggestive of atelectasis. 2. No significant consolidation or int erstitial edema. 3. Stable mild cardiomegaly. SL: BM -H at 2144 Re ported and signed by: Moses Salguero M.D. CC: Yakov church MD Technologist: Mandeep Mirza, RT(R); Marylin Mckinney RT(R) Trnscrd Date/Time/By: 09/11/2019 (2144) : By: [email or web address] Orig Print D/T: S: 09/11/2019 (2147) PAGE 1 Signed Report BASIC METABOLIC [id number] 21:30:00* Test Item Value Reference Range Interpretation Comments SODIUM (test code = NA) 127 mEq/L 134-147 L POTASSIUM (test code = K) 3.8 mEq/L 3.4-5.0 N CHLORIDE (test code = CL) 95 mEq/L 100-108 L CARBON DIOXIDE (test code = CO2) 22 mEq/L 21-33 N ANION GAP (test code = GAP) 14 0-20 N GLUCOSE (test code = GLU) 123 mg/dL 70-110 H BLOOD UREA NITROGEN (test code = BUN) 13 mg/dL 7-18 N GLOMERULAR FILTRATION RATE (test code = GFR) 54.2 70-80 L Units of measure = ml/min/1.73 m2 CREATININE (test code = CREAT) 1.0 mg/dL 0.6-1.3 N CALCIUM (test code = CA) 8.6 mg/dL 8.0-10.5 N BASIC METABOLIC [id number] 21:28:00* Test Item Value Reference Range Interpretation Comments SODIUM (test code = NA) 127 mEq/L 134-147 L POTASSIUM (test code = K) 3.8 mEq/L 3.4-5.0 N CHLORIDE (test code = CL) 95 mEq/L 100-108 L CARBON DIOXIDE (test code = CO2) 22 mEq/L 21-33 N ANION GAP (test code = GAP) 14 0-20 N GLUCOSE (test code = GLU) 123 mg/dL 70-110 H BLOOD UREA NITROGEN (test code = BUN) 13 mg/dL 7-18 N GLOMERULAR FILTRATION RATE (test code = GFR) 70-80 CREATININE (test code = CREAT) mg/dL 0.6-1.3 CALCIUM (test code = CA) 8.6 mg/dL 8.0-10.5 N CBC W/AUTO [id number] 21:19:00* Test Item Value Reference Range Interpretation Comments WHITE BLOOD CELL (test code = WBC) 5.60 x10 3/uL 4.5-11.0 N RED BLOOD CELL (test code = RBC) 4.44 x10 6/uL 3.54-5.02 N HEMOGLOBIN (test code = HGB) 8.5 g/dL 11.0-15.0 L HEMATOCRIT (test code = HCT) 26.8 % 33.0-45.0 L MEAN CELL VOLUME (test code = MCV) 60.4 fL 81.0-99.0 L MEAN CELL HGB (test code = MCH) 19.1 pg 27.0-33.0 L MEAN CELL HGB CONCETRATION (test code = MCHC) 31.7 g/dL 33.0-37. 0 L RED CELL DISTRIBUTION WIDTH CV (test code = RDW) 19.9 % 11.5- 14.5 H RED CELL DISTRIBUTION WIDTH SD (test code = RDW-SD) 41.2 fL 37 .0-54.0 N PLATELET COUNT (test code = PLT) 382 x10 3/uL 150-400 N IMMATURE PLATELET FRACTION (test code = IPF) 3.2 % 0.9-11.2 N MEAN PLATELET VOLUME (test code = MPV) 10.4 fL 7.0-9.0 H NEUTROPHIL % (test code = NT%) 52.1 % 56.0-77.0 L IMMATURE GRANULOCYTE % (test code = IG%) 0.9 % 0.0-2.0 N LYMPHOCYTE % (test code = LY%) 30.7 % 14.0-32.0 N MONOCYTE % (test code = MO%) 13.0 % 4.8-9.0 H EOSINOPHIL % (test code = EO%) 2.0 % 0.3-3.7 N BASOPHIL % (test code = BA%) 1.3 % 0.0-2.0 N NUCLEATED RBC % (test code = NRBC%) 0.0 % 0-0 N NEUTROPHIL # (test code = NT#) 2.92 x10 3/uL 2.0-7.6 N IMMATURE GRANULOCYTE # (test code = IG#) 0.05 x10 3/uL 0.00-0.03 H LYMPHOCYTE # (test code = LY#) 1.72 x10 3/uL 1.0-3.8 N MONOCYTE # (test code = MO#) 0.73 x10 3/uL 0.1-0.8 N EOSINOPHIL # (test code = EO#) 0.11 x10 3/uL 0.0-0.2 N BASOPHIL # (test code = BA#) 0.07 x10 3/uL 0.0-0.2 N NUCLEATED RBC # (test code = NRBC#) 0.00 x10 3/uL 0.0-0.1 N MANUAL DIFF REQUIRED (test code = MDIFF) NO [id number] 12:31:00* Test Item Value Reference Range Interpretation Comments GLUBED (test code = GLUBED) 111 MG/DL 70-110 H Performed by certified hand router operator at [facility] [id number] 11:06:00* Test Item Value Reference Range Interpretation Comments GLUBED (test code = GLUBED) 119 MG/DL 70-110 H Performed by certified hand router operator at [facility] BASIC METABOLIC [id number] 07:18:00* Test Item Value Reference Range Interpretation Comments SODIUM (test code = NA) 131 mEq/L 134-147 L POTASSIUM (test code = K) 4.9 mEq/L 3.4-5.0 N CHLORIDE (test code = CL) 97 mEq/L 100-108 L CARBON DIOXIDE (test code = CO2) 29 mEq/L 21-33 ANION GAP (test code = GAP) 10 0-20 N GLUCOSE (test code = GLU) 125 mg/dL 70-110 H BLOOD UREA NITROGEN (test code = BUN) 19 mg/dL 7-18 H GLOMERULAR FILTRATION RATE (test code = GFR) 48.6 70-80 L Units of measure = ml/min/1.73 m2 CREATININE (test code = CREAT) 1.1 mg/dL 0.6-1.3 N CALCIUM (test code = CA) 9.1 mg/dL 8.0-10.5 N TOTAL IRON BINDING [id number] 07:18:00* Test Item Value Reference Range Interpretation Comments SERUM IRON (test code = IRON) 46 mcg/dL 35-150 N TOTAL IRON BINDING CAPACITY (test code = TIBC) 293 mcg/dL 260-445 N UIBC (test code = UIBC) 247 mcg/dL IRON SATURATION (test code = FESAT) 15.7 % 14-34 N VITAMIN [id number] 07:18:00* Test Item Value Reference Range Interpretation Comments VITAMIN B12 (test code = VITB12) 282 pg/mL 193-986 N FOLIC [id number] 07:18:00* Test Item Value Reference Range Interpretation Comments FOLIC ACID (test code = FOL) 10.2 ng/mL 3.1-17.5 N [id number] 07:18:00* Test Item Value Reference Range Interpretation Comments FERRITIN (test code = ARBEN) 31.7 ng/mL 11.0-306.8 N CBC W/AUTO [id number] 05:56:00* Test Item Value Reference Range Interpretation Comments WHITE BLOOD CELL (test code = WBC) 6.76 x10 3/uL 4.5-11.0 N RED BLOOD CELL (test code = RBC) 4.30 x10 6/uL 3.54-5.02 N HEMOGLOBIN (test code = HGB) 8.1 g/dL 11.0-15.0 L HEMATOCRIT (test code = HCT) 26.6 % 33.0-45.0 L MEAN CELL VOLUME (test code = MCV) 61.9 fL 81.0-99.0 L MEAN CELL HGB (test code = MCH) 18.8 pg 27.0-33.0 L MEAN CELL HGB CONCETRATION (test code = MCHC) 30.5 g/dL 33.0-37. 0 L RED CELL DISTRIBUTION WIDTH CV (test code = RDW) 21.6 % 11.5- 14.5 H RED CELL DISTRIBUTION WIDTH SD (test code = RDW-SD) 44.7 fL 37 .0-54.0 N PLATELET COUNT (test code = PLT) 326 x10 3/uL 150-400 N IMMATURE PLATELET FRACTION (test code = IPF) 3.4 % 0.9-11.2 N NEUTROPHIL % (test code = NT%) 53.1 % 56.0-77.0 L IMMATURE GRANULOCYTE % (test code = IG%) 0.9 % 0.0-2.0 N LYMPHOCYTE % (test code = LY%) 32.0 % 14.0-32.0 N MONOCYTE % (test code = MO%) 10.2 % 4.8-9.0 H EOSINOPHIL % (test code = EO%) 2.5 % 0.3-3.7 N BASOPHIL % (test code = BA%) 1.3 % 0.0-2.0 N NUCLEATED RBC % (test code = NRBC%) 0.0 % 0-0 N NEUTROPHIL # (test code = NT#) 3.59 x10 3/uL 2.0-7.6 N IMMATURE GRANULOCYTE # (test code = IG#) 0.06 x10 3/uL 0.00-0.03 H LYMPHOCYTE # (test code = LY#) 2.16 x10 3/uL 1.0-3.8 N MONOCYTE # (test code = MO#) 0.69 x10 3/uL 0.1-0.8 N EOSINOPHIL # (test code = EO#) 0.17 x10 3/uL 0.0-0.2 N BASOPHIL # (test code = BA#) 0.09 x10 3/uL 0.0-0.2 N NUCLEATED RBC # (test code = NRBC#) 0.00 x10 3/uL 0.0-0.1 N MANUAL DIFF REQUIRED (test code = MDIFF) NO BASIC METABOLIC [id number] 08:18:00* Test Item Value Reference Range Interpretation Comments SODIUM (test code = NA) 131 mEq/L 134-147 L POTASSIUM (test code = K) 4.0 mEq/L 3.4-5.0 N CHLORIDE (test code = CL) 101 mEq/L 100-108 N CARBON DIOXIDE (test code = CO2) 23 mEq/L 21-33 N ANION GAP (test code = GAP) 11 0-20 N GLUCOSE (test code = GLU) 115 mg/dL 70-110 H BLOOD UREA NITROGEN (test code = BUN) 16 mg/dL 7-18 N GLOMERULAR FILTRATION RATE (test code = GFR) 54.2 70-80 L Units of measure = ml/min/1.73 m2 CREATININE (test code = CREAT) 1.0 mg/dL 0.6-1.3 N CALCIUM (test code = CA) 8.7 mg/dL 8.0-10.5 N CBC W/AUTO [id number] 07:19:00* Test Item Value Reference Range Interpretation Comments WHITE BLOOD CELL (test code = WBC) 6.13 x10 3/uL 4.5-11.0 N RED BLOOD CELL (test code = RBC) 4.29 x10 6/uL 3.54-5.02 N HEMOGLOBIN (test code = HGB) 8.1 g/dL 11.0-15.0 L HEMATOCRIT (test code = HCT) 26.7 % 33.0-45.0 L MEAN CELL VOLUME (test code = MCV) 62.2 fL 81.0-99.0 L MEAN CELL HGB (test code = MCH) 18.9 pg 27.0-33.0 L MEAN CELL HGB CONCETRATION (test code = MCHC) 30.3 g/dL 33.0-37. 0 L RED CELL DISTRIBUTION WIDTH CV (test code = RDW) 21.3 % 11.5- 14.5 H RED CELL DISTRIBUTION WIDTH SD (test code = RDW-SD) 45.2 fL 37 .0-54.0 N PLATELET COUNT (test code = PLT) 325 x10 3/uL 150-400 N IMMATURE PLATELET FRACTION (test code = IPF) 3.5 % 0.9-11.2 N NEUTROPHIL % (test code = NT%) 45.4 % 56.0-77.0 L IMMATURE GRANULOCYTE % (test code = IG%) 0.7 % 0.0-2.0 N LYMPHOCYTE % (test code = LY%) 37.0 % 14.0-32.0 H MONOCYTE % (test code = MO%) 11.7 % 4.8-9.0 H EOSINOPHIL % (test code = EO%) 3.6 % 0.3-3.7 N BASOPHIL % (test code = BA%) 1.6 % 0.0-2.0 N NUCLEATED RBC % (test code = NRBC%) 0.0 % 0-0 N NEUTROPHIL # (test code = NT#) 2.78 x10 3/uL 2.0-7.6 N IMMATURE GRANULOCYTE # (test code = IG#) 0.04 x10 3/uL 0.00-0.03 H LYMPHOCYTE # (test code = LY#) 2.27 x10 3/uL 1.0-3.8 N MONOCYTE # (test code = MO#) 0.72 x10 3/uL 0.1-0.8 N EOSINOPHIL # (test code = EO#) 0.22 x10 3/uL 0.0-0.2 H BASOPHIL # (test code = BA#) 0.10 x10 3/uL 0.0-0.2 N NUCLEATED RBC # (test code = NRBC#) 0.00 x10 3/uL 0.0-0.1 N MANUAL DIFF REQUIRED (test code = MDIFF) NO BASIC METABOLIC [id number] 07:55:00* Test Item Value Reference Range Interpretation Comments SODIUM (test code = NA) 130 mEq/L 134-147 L POTASSIUM (test code = K) 4.0 mEq/L 3.4-5.0 N CHLORIDE (test code = CL) 100 mEq/L 100-108 N CARBON DIOXIDE (test code = CO2) 23 mEq/L 21-33 N ANION GAP (test code = GAP) 11 0-20 N GLUCOSE (test code = GLU) 100 mg/dL 70-110 BLOOD UREA NITROGEN (test code = BUN) 18 mg/dL 7-18 N GLOMERULAR FILTRATION RATE (test code = GFR) 48.6 70-80 L Units of measure = ml/min/1.73 m2 CREATININE (test code = CREAT) 1.1 mg/dL 0.6-1.3 N CALCIUM (test code = CA) 8.4 mg/dL 8.0-10.5 N CBC W/AUTO [id number] 07:27:00* Test Item Value Reference Range Interpretation Comments WHITE BLOOD CELL (test code = WBC) 5.52 x10 3/uL 4.5-11.0 N RED BLOOD CELL (test code = RBC) 4.27 x10 6/uL 3.54-5.02 N HEMOGLOBIN (test code = HGB) 8.0 g/dL 11.0-15.0 L HEMATOCRIT (test code = HCT) 26.5 % 33.0-45.0 L MEAN CELL VOLUME (test code = MCV) 62.1 fL 81.0-99.0 L MEAN CELL HGB (test code = MCH) 18.7 pg 27.0-33.0 L MEAN CELL HGB CONCETRATION (test code = MCHC) 30.2 g/dL 33.0-37. 0 L RED CELL DISTRIBUTION WIDTH CV (test code = RDW) 21.6 % 11.5- 14.5 H RED CELL DISTRIBUTION WIDTH SD (test code = RDW-SD) 44.9 fL 37 .0-54.0 N PLATELET COUNT (test code = PLT) 349 x10 3/uL 150-400 N IMMATURE PLATELET FRACTION (test code = IPF) 3.4 % 0.9-11.2 N NEUTROPHIL % (test code = NT%) 48.8 % 56.0-77.0 L IMMATURE GRANULOCYTE % (test code = IG%) 0.5 % 0.0-2.0 N LYMPHOCYTE % (test code = LY%) 31.9 % 14.0-32.0 N MONOCYTE % (test code = MO%) 13.6 % 4.8-9.0 H EOSINOPHIL % (test code = EO%) 3.8 % 0.3-3.7 H BASOPHIL % (test code = BA%) 1.4 % 0.0-2.0 N NUCLEATED RBC % (test code = NRBC%) 0.4 % 0-0 H NEUTROPHIL # (test code = NT#) 2.69 x10 3/uL 2.0-7.6 N IMMATURE GRANULOCYTE # (test code = IG#) 0.03 x10 3/uL 0.00-0.03 N LYMPHOCYTE # (test code = LY#) 1.76 x10 3/uL 1.0-3.8 N MONOCYTE # (test code = MO#) 0.75 x10 3/uL 0.1-0.8 N EOSINOPHIL # (test code = EO#) 0.21 x10 3/uL 0.0-0.2 H BASOPHIL # (test code = BA#) 0.08 x10 3/uL 0.0-0.2 N NUCLEATED RBC # (test code = NRBC#) 0.02 x10 3/uL 0.0-0.1 N MANUAL DIFF REQUIRED (test code = MDIFF) NO [id number] 07:15:00* Test Item Value Reference Range Interpretation Comments TROPONIN-I (test code = TROPI) < 0.015 ng/mL 0.000-0.045 N Negative: <= 0.045 Positive: >= 0.046 Correlation with serial results, other cardiac markers andclinical findings is necessary to determine the clinicalsignificance of this result. Results using different methodologies should not be comparedto one another as quantitative results may vary by method. COMMENTS: 3 troponins total (including troponin done in ED)[id number] 05:51:00* Test Item Value Reference Range Interpretation Comments TROPONIN-I (test code = TROPI) < 0.015 ng/mL 0.000-0.045 N Negative: <= 0.045 Positive: >= 0.046 Correlation with serial results, other cardiac markers andclinical findings is necessary to determine the clinicalsignificance of this result. Results using different methodologies should not be comparedto one another as quantitative results may vary by method. COMMENTS: 3 troponins total (including troponin done in ED)B-TYPE NATRIURETIC [id number] 01:01:00* Test Item Value Reference Range Interpretation Comments B-TYPE NATRIURETIC PEPTIDE (test code = BNP) 466.5 PG/ML 0-100 H CBC W/AUTO [id number] 00:59:00* Test Item Value Reference Range Interpretation Comments WHITE BLOOD CELL (test code = WBC) 7.05 x10 3/uL 4.5-11.0 N RED BLOOD CELL (test code = RBC) 4.75 x10 6/uL 3.54-5.02 N HEMOGLOBIN (test code = HGB) 8.9 g/dL 11.0-15.0 L HEMATOCRIT (test code = HCT) 28.9 % 33.0-45.0 L MEAN CELL VOLUME (test code = MCV) 60.8 fL 81.0-99.0 L MEAN CELL HGB (test code = MCH) 18.7 pg 27.0-33.0 L MEAN CELL HGB CONCETRATION (test code = MCHC) 30.8 g/dL 33.0-37. 0 L RED CELL DISTRIBUTION WIDTH CV (test code = RDW) 21.8 % 11.5- 14.5 H RED CELL DISTRIBUTION WIDTH SD (test code = RDW-SD) 43.8 fL 37 .0-54.0 N PLATELET COUNT (test code = PLT) 414 x10 3/uL 150-400 H IMMATURE PLATELET FRACTION (test code = IPF) 3.7 % 0.9-11.2 N MEAN PLATELET VOLUME (test code = MPV) 10.5 fL 7.0-9.0 H NEUTROPHIL % (test code = NT%) 68.8 % 56.0-77.0 N IMMATURE GRANULOCYTE % (test code = IG%) 0.6 % 0.0-2.0 N LYMPHOCYTE % (test code = LY%) 17.7 % 14.0-32.0 N MONOCYTE % (test code = MO%) 10.6 % 4.8-9.0 H EOSINOPHIL % (test code = EO%) 1.3 % 0.3-3.7 N BASOPHIL % (test code = BA%) 1.0 % 0.0-2.0 N NUCLEATED RBC % (test code = NRBC%) 0.3 % 0-0 H NEUTROPHIL # (test code = NT#) 4.85 x10 3/uL 2.0-7.6 N IMMATURE GRANULOCYTE # (test code = IG#) 0.04 x10 3/uL 0.00-0.03 H LYMPHOCYTE # (test code = LY#) 1.25 x10 3/uL 1.0-3.8 N MONOCYTE # (test code = MO#) 0.75 x10 3/uL 0.1-0.8 N EOSINOPHIL # (test code = EO#) 0.09 x10 3/uL 0.0-0.2 N BASOPHIL # (test code = BA#) 0.07 x10 3/uL 0.0-0.2 N NUCLEATED RBC # (test code = NRBC#) 0.02 x10 3/uL 0.0-0.1 N MANUAL DIFF REQUIRED (test code = MDIFF) NO RBC [id number] 00:59:00* Test Item Value Reference Range Interpretation Comments POLYCHROMASIA (test code = POLC) SLIGHT HYPOCHROMIA (test code = HYPO) 1+ POIKILOCYTOSIS (test code = POIK) 2+ ANISOCYTOSIS (test code = ANISO) 2+ MICROCYTOSIS (test code = MICR) 2+ TARGET CELLS (test code = TGT) FEW ELLIPTOCYTES (test code = ELL) 1+ BASIC METABOLIC [id number] 00:56:00* Test Item Value Reference Range Interpretation Comments SODIUM (test code = NA) 128 mEq/L 134-147 L POTASSIUM (test code = K) 4.1 mEq/L 3.4-5.0 N CHLORIDE (test code = CL) 95 mEq/L 100-108 L CARBON DIOXIDE (test code = CO2) 25 mEq/L 21-33 N ANION GAP (test code = GAP) 12 0-20 N GLUCOSE (test code = GLU) 147 mg/dL 70-110 H BLOOD UREA NITROGEN (test code = BUN) 18 mg/dL 7-18 N GLOMERULAR FILTRATION RATE (test code = GFR) 54.2 70-80 L Units of measure = ml/min/1.73 m2 CREATININE (test code = CREAT) 1.0 mg/dL 0.6-1.3 N CALCIUM (test code = CA) 8.8 mg/dL 8.0-10.5 N HEPATIC FUNCTION [id number] 00:56:00* Test Item Value Reference Range Interpretation Comments TOTAL PROTEIN (test code = PROT) 8.1 g/dL 6.4-8.2 N ALBUMIN (test code = ALB) 3.50 g/dL 3.4-5.0 N BILIRUBIN TOTAL (test code = BILT) 0.5 MG/DL <1.5 N BILIRUBIN DIRECT (test code = BILD) 0.20 MG/DL 0.0-0.30 BILIRUBIN INDIRECT (test code = BILIND) 0.30 MG/DL SGOT/AST (test code = AST) 32 IUnit/L 15-37 N SGPT/ALT (test code = ALT) 29 IUnit/L 15-65 N ALKALINE PHOSPHATASE TOTAL (test code = ALKP) 64 IUnit/L 20-125 N [id number] 00:56:00* Test Item Value Reference Range Interpretation Comments LIPASE (test code = LIP) 196 IUnit/L 73-393 N TSH REFLEX TO [id number] 00:56:00* Test Item Value Reference Range Interpretation Comments TSH REFLEX TO FT4 (test code = TSHREFLEX) 4.37 IU/mL 0.42-5.47 N [id number] 00:56:00* Test Item Value Reference Range Interpretation Comments TROPONIN-I (test code = TROPI) < 0.015 ng/mL 0.000-0.045 N Negative: <= 0.045 Positive: >= 0.046 Correlation with serial results, other cardiac markers andclinical findings is necessary to determine the clinicalsignificance of this result. Results using different methodologies should not be comparedto one another as quantitative results may vary by method. BASIC METABOLIC [id number] 00:50:00* Test Item Value Reference Range Interpretation Comments SODIUM (test code = NA) 128 mEq/L 134-147 L POTASSIUM (test code = K) 4.1 mEq/L 3.4-5.0 N CHLORIDE (test code = CL) 95 mEq/L 100-108 L CARBON DIOXIDE (test code = CO2) 25 mEq/L 21-33 N ANION GAP (test code = GAP) 12 0-20 N GLUCOSE (test code = GLU) 147 mg/dL 70-110 H BLOOD UREA NITROGEN (test code = BUN) 18 mg/dL 7-18 N GLOMERULAR FILTRATION RATE (test code = GFR) 54.2 70-80 L Units of measure = ml/min/1.73 m2 CREATININE (test code = CREAT) 1.0 mg/dL 0.6-1.3 N CALCIUM (test code = CA) 8.8 mg/dL 8.0-10.5 N HEPATIC FUNCTION [id number] 00:50:00* Test Item Value Reference Range Interpretation Comments TOTAL PROTEIN (test code = PROT) 8.1 g/dL 6.4-8.2 N ALBUMIN (test code = ALB) 3.50 g/dL 3.4-5.0 N BILIRUBIN TOTAL (test code = BILT) 0.5 MG/DL <1.5 N BILIRUBIN DIRECT (test code = BILD) 0.20 MG/DL 0.0-0.30 BILIRUBIN INDIRECT (test code = BILIND) 0.30 MG/DL SGOT/AST (test code = AST) 32 IUnit/L 15-37 N SGPT/ALT (test code = ALT) 29 IUnit/L 15-65 N ALKALINE PHOSPHATASE TOTAL (test code = ALKP) 64 IUnit/L 20-125 N [id number] 00:50:00* Test Item Value Reference Range Interpretation Comments LIPASE (test code = LIP) 196 IUnit/L 73-393 N TSH REFLEX TO [id number] 00:50:00* Test Item Value Reference Range Interpretation Comments TSH REFLEX TO FT4 (test code = TSHREFLEX) IU/mL 0.42-5.47 [id number] 00:50:00* Test Item Value Reference Range Interpretation Comments TROPONIN-I (test code = TROPI) < 0.015 ng/mL 0.000-0.045 N Negative: <= 0.045 Positive: >= 0.046 Correlation with serial results, other cardiac markers andclinical findings is necessary to determine the clinicalsignificance of this result. Results using different methodologies should not be comparedto one another as quantitative results may vary by method. PROTHROMBIN [id number] 00:43:00* Test Item Value Reference Range Interpretation Comments PROTHROMBIN TIME PATIENT (test code = PTP) 19.6 SECONDS 9.3-12.9 H INTERNATIONAL NORMAL RATIO (test code = INR) 1.8 0.8-1.2 H TARGET INR BY INDICATION Indication INR1. Prophylaxis of venous thrombosis 2.0 - 3.0 (orthopedic surgery), Prophylaxis of venous thrombosis (other than high-risk surgery), Treatment of Deep Vein Thrombosis/Pulmonary Embolism, Prevention of systemic embolism - Tissue heart valves, Acute Myocardial Infarction (to prevent systemic embolism), Valvular heart disease, Atrial Fibrillation, Bileaflet mechanical valve in aortic position.2. Mechanical prosthetic valves (high risk), 2.5 - 3.5 Presence of Lupus Anticoagulant or Antiphospholipid Antibodies, Prevention of systemic embolism - Acute Myocardial Infarction (to prevent recurrent infarct). THROMBOPLASTIN TIME [id number] 00:43:00* Test Item Value Reference Range Interpretation Comments THROMBOPLASTIN TIME PARTIAL (test code = PTT) 38.8 Seconds 25.0-39. 5 N Therapeutic Range: 50.4 - 88.3 Seconds Effective 09/09/2018 CBC W/AUTO [id number] 00:33:00* Test Item Value Reference Range Interpretation Comments WHITE BLOOD CELL (test code = WBC) 7.05 x10 3/uL 4.5-11.0 N RED BLOOD CELL (test code = RBC) 4.75 x10 6/uL 3.54-5.02 N HEMOGLOBIN (test code = HGB) 8.9 g/dL 11.0-15.0 L HEMATOCRIT (test code = HCT) 28.9 % 33.0-45.0 L MEAN CELL VOLUME (test code = MCV) 60.8 fL 81.0-99.0 L MEAN CELL HGB (test code = MCH) 18.7 pg 27.0-33.0 L MEAN CELL HGB CONCETRATION (test code = MCHC) 30.8 g/dL 33.0-37. 0 L RED CELL DISTRIBUTION WIDTH CV (test code = RDW) 21.8 % 11.5- 14.5 H RED CELL DISTRIBUTION WIDTH SD (test code = RDW-SD) 43.8 fL 37 .0-54.0 N PLATELET COUNT (test code = PLT) 414 x10 3/uL 150-400 H IMMATURE PLATELET FRACTION (test code = IPF) 3.7 % 0.9-11.2 N MEAN PLATELET VOLUME (test code = MPV) 10.5 fL 7.0-9.0 H NEUTROPHIL % (test code = NT%) 68.8 % 56.0-77.0 N IMMATURE GRANULOCYTE % (test code = IG%) 0.6 % 0.0-2.0 N LYMPHOCYTE % (test code = LY%) 17.7 % 14.0-32.0 N MONOCYTE % (test code = MO%) 10.6 % 4.8-9.0 H EOSINOPHIL % (test code = EO%) 1.3 % 0.3-3.7 N BASOPHIL % (test code = BA%) 1.0 % 0.0-2.0 N NUCLEATED RBC % (test code = NRBC%) 0.3 % 0-0 H NEUTROPHIL # (test code = NT#) 4.85 x10 3/uL 2.0-7.6 N IMMATURE GRANULOCYTE # (test code = IG#) 0.04 x10 3/uL 0.00-0.03 H LYMPHOCYTE # (test code = LY#) 1.25 x10 3/uL 1.0-3.8 N MONOCYTE # (test code = MO#) 0.75 x10 3/uL 0.1-0.8 N EOSINOPHIL # (test code = EO#) 0.09 x10 3/uL 0.0-0.2 N BASOPHIL # (test code = BA#) 0.07 x10 3/uL 0.0-0.2 N NUCLEATED RBC # (test code = NRBC#) 0.02 x10 3/uL 0.0-0.1 N MANUAL DIFF REQUIRED (test code = MDIFF) NO RBC [id number] 00:33:00* Test Item Value Reference Range Interpretation Comments ANISOCYTOSIS (test code = ANISO) CBC W/AUTO [id number] 00:33:00* Test Item Value Reference Range Interpretation Comments WHITE BLOOD CELL (test code = WBC) 7.05 x10 3/uL 4.5-11.0 N RED BLOOD CELL (test code = RBC) 4.75 x10 6/uL 3.54-5.02 N HEMOGLOBIN (test code = HGB) 8.9 g/dL 11.0-15.0 L HEMATOCRIT (test code = HCT) 28.9 % 33.0-45.0 L MEAN CELL VOLUME (test code = MCV) 60.8 fL 81.0-99.0 L MEAN CELL HGB (test code = MCH) 18.7 pg 27.0-33.0 L MEAN CELL HGB CONCETRATION (test code = MCHC) 30.8 g/dL 33.0-37. 0 L RED CELL DISTRIBUTION WIDTH CV (test code = RDW) 21.8 % 11.5- 14.5 H RED CELL DISTRIBUTION WIDTH SD (test code = RDW-SD) 43.8 fL 37 .0-54.0 N PLATELET COUNT (test code = PLT) 414 x10 3/uL 150-400 H IMMATURE PLATELET FRACTION (test code = IPF) 3.7 % 0.9-11.2 N MEAN PLATELET VOLUME (test code = MPV) 10.5 fL 7.0-9.0 H NEUTROPHIL % (test code = NT%) 68.8 % 56.0-77.0 N IMMATURE GRANULOCYTE % (test code = IG%) 0.6 % 0.0-2.0 N LYMPHOCYTE % (test code = LY%) 17.7 % 14.0-32.0 N MONOCYTE % (test code = MO%) 10.6 % 4.8-9.0 H EOSINOPHIL % (test code = EO%) 1.3 % 0.3-3.7 N BASOPHIL % (test code = BA%) 1.0 % 0.0-2.0 N NUCLEATED RBC % (test code = NRBC%) 0.3 % 0-0 H NEUTROPHIL # (test code = NT#) 4.85 x10 3/uL 2.0-7.6 N IMMATURE GRANULOCYTE # (test code = IG#) 0.04 x10 3/uL 0.00-0.03 H LYMPHOCYTE # (test code = LY#) 1.25 x10 3/uL 1.0-3.8 N MONOCYTE # (test code = MO#) 0.75 x10 3/uL 0.1-0.8 N EOSINOPHIL # (test code = EO#) 0.09 x10 3/uL 0.0-0.2 N BASOPHIL # (test code = BA#) 0.07 x10 3/uL 0.0-0.2 N NUCLEATED RBC # (test code = NRBC#) 0.02 x10 3/uL 0.0-0.1 N MANUAL DIFF REQUIRED (test code = MDIFF) NO RBC [id number] 00:33:00* Test Item Value Reference Range Interpretation Comments ANISOCYTOSIS (test code = ANISO) - XR CHEST 1 [id number] 23:57:00 FAX: Gulshan Riddle MD [phone] [place]: St: REG Name: Uyen TREVINOKELLY [facility] : [birth year] Age/S: 73/F [address] [place] [address] Unit #: [id number] Loc: [address] [address] Phys: Gulshan Agosto MD Acct: [id number] Dis Date: Status: REG ER PHONE #: [phone] Exam Date: 08/23/2019 8091 FAX #: [phone] Reason: Chest Pain EXAMS: CPT CODE: [id number] XR CHEST 1 V [id number] Chest, single view dated 08/23/2019. HISTORY: Chest pain. Hypertension. Comparison is made to a prior study dated 07/27/2019. The heart appears enlarged. The cardiomediastinal shadow is stable. The lungs appear clear. The pul monary vasculature is normal in caliber. No acute pleural space abnormali ties are identified. Thoracic scoliosis is again noted with the convexity to the right. IMPRESSION: 1. No radiographic evidence of acute cardiopulmonary disease. SL: 131 El ectronically Signed by Kayley Navarro on 08/23/2019 at 2357 Reported and signed b y: Epifanio Navarro M.D. CC: Gulshan Agosto MD Technologist: Diandra Owen RT(R) Trnscrd Date/Time/By: 08/23/2019 ([id number]) : By: GermánDMM Orig Print D/T: S: 08/24/2019 (0000) PAGE 1 Signed Report BASIC METABOLIC PANEL 2019-08-04 08:00:00* Test Item Value Reference Range Interpretation Comments SODIUM (test code = NA) 129 mEq/L 134-147 L POTASSIUM (test code = K) 4.3 mEq/L 3.4-5.0 N CHLORIDE (test code = CL) 96 mEq/L 100-108 L CARBON DIOXIDE (test code = CO2) 24 mEq/L 21-33 N ANION GAP (test code = GAP) 13 0-20 N GLUCOSE (test code = GLU) 108 mg/dL 70-110 BLOOD UREA NITROGEN (test code = BUN) 18 mg/dL 7-18 N GLOMERULAR FILTRATION RATE (test code = GFR) 48.6 70-80 L Units of measure = ml/min/1.73 m2 CREATININE (test code = CREAT) 1.1 mg/dL 0.6-1.3 N CALCIUM (test code = CA) 9.2 mg/dL 8.0-10.5 N CBC W/AUTO [id number] 07:47:00* Test Item Value Reference Range Interpretation Comments WHITE BLOOD CELL (test code = WBC) 10.30 x10 3/uL 4.5-11.0 N RED BLOOD CELL (test code = RBC) 4.63 x10 6/uL 3.54-5.02 N HEMOGLOBIN (test code = HGB) 8.5 g/dL 11.0-15.0 L HEMATOCRIT (test code = HCT) 27.9 % 33.0-45.0 L MEAN CELL VOLUME (test code = MCV) 60.3 fL 81.0-99.0 L MEAN CELL HGB (test code = MCH) 18.4 pg 27.0-33.0 L MEAN CELL HGB CONCETRATION (test code = MCHC) 30.5 g/dL 33.0-37. 0 L RED CELL DISTRIBUTION WIDTH CV (test code = RDW) 19.4 % 11.5- 14.5 H RED CELL DISTRIBUTION WIDTH SD (test code = RDW-SD) 38.3 fL 37 .0-54.0 N PLATELET COUNT (test code = PLT) 381 x10 3/uL 150-400 N IMMATURE PLATELET FRACTION (test code = IPF) 7.2 % 0.9-11.2 N NEUTROPHIL % (test code = NT%) 43.8 % 56.0-77.0 L IMMATURE GRANULOCYTE % (test code = IG%) 1.8 % 0.0-2.0 N LYMPHOCYTE % (test code = LY%) 40.8 % 14.0-32.0 H MONOCYTE % (test code = MO%) 9.7 % 4.8-9.0 H EOSINOPHIL % (test code = EO%) 2.7 % 0.3-3.7 N BASOPHIL % (test code = BA%) 1.2 % 0.0-2.0 N NUCLEATED RBC % (test code = NRBC%) 0.2 % 0-0 H NEUTROPHIL # (test code = NT#) 4.51 x10 3/uL 2.0-7.6 N IMMATURE GRANULOCYTE # (test code = IG#) 0.19 x10 3/uL 0.00-0.03 H LYMPHOCYTE # (test code = LY#) 4.20 x10 3/uL 1.0-3.8 H MONOCYTE # (test code = MO#) 1.00 x10 3/uL 0.1-0.8 H EOSINOPHIL # (test code = EO#) 0.28 x10 3/uL 0.0-0.2 H BASOPHIL # (test code = BA#) 0.12 x10 3/uL 0.0-0.2 N NUCLEATED RBC # (test code = NRBC#) 0.02 x10 3/uL 0.0-0.1 N MANUAL DIFF REQUIRED (test code = MDIFF) NO BASIC METABOLIC [id number] 12:55:00* Test Item Value Reference Range Interpretation Comments SODIUM (test code = NA) 128 mEq/L 134-147 L POTASSIUM (test code = K) 4.6 mEq/L 3.4-5.0 N CHLORIDE (test code = CL) 95 mEq/L 100-108 L CARBON DIOXIDE (test code = CO2) 27 mEq/L 21-33 ANION GAP (test code = GAP) 11 0-20 N GLUCOSE (test code = GLU) 149 mg/dL 70-110 H BLOOD UREA NITROGEN (test code = BUN) 18 mg/dL 7-18 N GLOMERULAR FILTRATION RATE (test code = GFR) 54.2 70-80 L Units of measure = ml/min/1.73 m2 CREATININE (test code = CREAT) 1.0 mg/dL 0.6-1.3 N CALCIUM (test code = CA) 9.2 mg/dL 8.0-10.5 N CBC W/AUTO [id number] 12:19:00* Test Item Value Reference Range Interpretation Comments WHITE BLOOD CELL (test code = WBC) 8.17 x10 3/uL 4.5-11.0 N RED BLOOD CELL (test code = RBC) 4.50 x10 6/uL 3.54-5.02 N HEMOGLOBIN (test code = HGB) 8.3 g/dL 11.0-15.0 L HEMATOCRIT (test code = HCT) 27.1 % 33.0-45.0 L MEAN CELL VOLUME (test code = MCV) 60.2 fL 81.0-99.0 L MEAN CELL HGB (test code = MCH) 18.4 pg 27.0-33.0 L MEAN CELL HGB CONCETRATION (test code = MCHC) 30.6 g/dL 33.0-37. 0 L RED CELL DISTRIBUTION WIDTH CV (test code = RDW) 18.8 % 11.5- 14.5 H RED CELL DISTRIBUTION WIDTH SD (test code = RDW-SD) 38.0 fL 37 .0-54.0 N PLATELET COUNT (test code = PLT) 380 x10 3/uL 150-400 N IMMATURE PLATELET FRACTION (test code = IPF) 5.9 % 0.9-11.2 N NEUTROPHIL % (test code = NT%) 61.3 % 56.0-77.0 N IMMATURE GRANULOCYTE % (test code = IG%) 1.8 % 0.0-2.0 N LYMPHOCYTE % (test code = LY%) 22.3 % 14.0-32.0 N MONOCYTE % (test code = MO%) 10.9 % 4.8-9.0 H EOSINOPHIL % (test code = EO%) 2.6 % 0.3-3.7 N BASOPHIL % (test code = BA%) 1.1 % 0.0-2.0 N NUCLEATED RBC % (test code = NRBC%) 0.2 % 0-0 H NEUTROPHIL # (test code = NT#) 5.01 x10 3/uL 2.0-7.6 N IMMATURE GRANULOCYTE # (test code = IG#) 0.15 x10 3/uL 0.00-0.03 H LYMPHOCYTE # (test code = LY#) 1.82 x10 3/uL 1.0-3.8 N MONOCYTE # (test code = MO#) 0.89 x10 3/uL 0.1-0.8 H EOSINOPHIL # (test code = EO#) 0.21 x10 3/uL 0.0-0.2 H BASOPHIL # (test code = BA#) 0.09 x10 3/uL 0.0-0.2 N NUCLEATED RBC # (test code = NRBC#) 0.02 x10 3/uL 0.0-0.1 N MANUAL DIFF REQUIRED (test code = MDIFF) NO RBC [id number] 12:19:00* Test Item Value Reference Range Interpretation Comments HYPOCHROMIA (test code = HYPO) 1+ POIKILOCYTOSIS (test code = POIK) 1+ ANISOCYTOSIS (test code = ANISO) 2+ MICROCYTOSIS (test code = MICR) 1+ MACROCYTOSIS (test code = MACR) FEW TARGET CELLS (test code = TGT) SEEN OVALOCYTES (test code = OVAL) FEW SCHISTOCYTES (test code = GINA) FEW BASIC METABOLIC [id number] 10:16:00* Test Item Value Reference Range Interpretation Comments SODIUM (test code = NA) 124 mEq/L 134-147 LL POTASSIUM (test code = K) 4.1 mEq/L 3.4-5.0 N CHLORIDE (test code = CL) 97 mEq/L 100-108 L CARBON DIOXIDE (test code = CO2) 21 mEq/L 21-33 N ANION GAP (test code = GAP) 10 0-20 N GLUCOSE (test code = GLU) 135 mg/dL 70-110 H BLOOD UREA NITROGEN (test code = BUN) 17 mg/dL 7-18 N GLOMERULAR FILTRATION RATE (test code = GFR) 54.2 70-80 L Units of measure = ml/min/1.73 m2 CREATININE (test code = CREAT) 1.0 mg/dL 0.6-1.3 N CALCIUM (test code = CA) 8.6 mg/dL 8.0-10.5 N CBC W/AUTO [id number] 10:04:00* Test Item Value Reference Range Interpretation Comments WHITE BLOOD CELL (test code = WBC) 8.17 x10 3/uL 4.5-11.0 N RED BLOOD CELL (test code = RBC) 4.50 x10 6/uL 3.54-5.02 N HEMOGLOBIN (test code = HGB) 8.3 g/dL 11.0-15.0 L HEMATOCRIT (test code = HCT) 27.1 % 33.0-45.0 L MEAN CELL VOLUME (test code = MCV) 60.2 fL 81.0-99.0 L MEAN CELL HGB (test code = MCH) 18.4 pg 27.0-33.0 L MEAN CELL HGB CONCETRATION (test code = MCHC) 30.6 g/dL 33.0-37. 0 L RED CELL DISTRIBUTION WIDTH CV (test code = RDW) 18.8 % 11.5- 14.5 H RED CELL DISTRIBUTION WIDTH SD (test code = RDW-SD) 38.0 fL 37 .0-54.0 N PLATELET COUNT (test code = PLT) 380 x10 3/uL 150-400 N IMMATURE PLATELET FRACTION (test code = IPF) 5.9 % 0.9-11.2 N NEUTROPHIL % (test code = NT%) 61.3 % 56.0-77.0 N IMMATURE GRANULOCYTE % (test code = IG%) 1.8 % 0.0-2.0 N LYMPHOCYTE % (test code = LY%) 22.3 % 14.0-32.0 N MONOCYTE % (test code = MO%) 10.9 % 4.8-9.0 H EOSINOPHIL % (test code = EO%) 2.6 % 0.3-3.7 N BASOPHIL % (test code = BA%) 1.1 % 0.0-2.0 N NUCLEATED RBC % (test code = NRBC%) 0.2 % 0-0 H NEUTROPHIL # (test code = NT#) 5.01 x10 3/uL 2.0-7.6 N IMMATURE GRANULOCYTE # (test code = IG#) 0.15 x10 3/uL 0.00-0.03 H LYMPHOCYTE # (test code = LY#) 1.82 x10 3/uL 1.0-3.8 N MONOCYTE # (test code = MO#) 0.89 x10 3/uL 0.1-0.8 H EOSINOPHIL # (test code = EO#) 0.21 x10 3/uL 0.0-0.2 H BASOPHIL # (test code = BA#) 0.09 x10 3/uL 0.0-0.2 N NUCLEATED RBC # (test code = NRBC#) 0.02 x10 3/uL 0.0-0.1 N MANUAL DIFF REQUIRED (test code = MDIFF) NO RBC [id number] 10:04:00* Test Item Value Reference Range Interpretation Comments ANISOCYTOSIS (test code = ANISO) CBC W/AUTO [id number] 10:04:00* Test Item Value Reference Range Interpretation Comments WHITE BLOOD CELL (test code = WBC) 8.17 x10 3/uL 4.5-11.0 N RED BLOOD CELL (test code = RBC) 4.50 x10 6/uL 3.54-5.02 N HEMOGLOBIN (test code = HGB) 8.3 g/dL 11.0-15.0 L HEMATOCRIT (test code = HCT) 27.1 % 33.0-45.0 L MEAN CELL VOLUME (test code = MCV) 60.2 fL 81.0-99.0 L MEAN CELL HGB (test code = MCH) 18.4 pg 27.0-33.0 L MEAN CELL HGB CONCETRATION (test code = MCHC) 30.6 g/dL 33.0-37. 0 L RED CELL DISTRIBUTION WIDTH CV (test code = RDW) 18.8 % 11.5- 14.5 H RED CELL DISTRIBUTION WIDTH SD (test code = RDW-SD) 38.0 fL 37 .0-54.0 N PLATELET COUNT (test code = PLT) 380 x10 3/uL 150-400 N IMMATURE PLATELET FRACTION (test code = IPF) 5.9 % 0.9-11.2 N NEUTROPHIL % (test code = NT%) 61.3 % 56.0-77.0 N IMMATURE GRANULOCYTE % (test code = IG%) 1.8 % 0.0-2.0 N LYMPHOCYTE % (test code = LY%) 22.3 % 14.0-32.0 N MONOCYTE % (test code = MO%) 10.9 % 4.8-9.0 H EOSINOPHIL % (test code = EO%) 2.6 % 0.3-3.7 N BASOPHIL % (test code = BA%) 1.1 % 0.0-2.0 N NUCLEATED RBC % (test code = NRBC%) 0.2 % 0-0 H NEUTROPHIL # (test code = NT#) 5.01 x10 3/uL 2.0-7.6 N IMMATURE GRANULOCYTE # (test code = IG#) 0.15 x10 3/uL 0.00-0.03 H LYMPHOCYTE # (test code = LY#) 1.82 x10 3/uL 1.0-3.8 N MONOCYTE # (test code = MO#) 0.89 x10 3/uL 0.1-0.8 H EOSINOPHIL # (test code = EO#) 0.21 x10 3/uL 0.0-0.2 H BASOPHIL # (test code = BA#) 0.09 x10 3/uL 0.0-0.2 N NUCLEATED RBC # (test code = NRBC#) 0.02 x10 3/uL 0.0-0.1 N MANUAL DIFF REQUIRED (test code = MDIFF) NO RBC [id number] 10:04:00* Test Item Value Reference Range Interpretation Comments ANISOCYTOSIS (test code = ANISO) [id number] 17:19:00* Test Item Value Reference Range Interpretation Comments GLUBED (test code = GLUBED) 109 MG/DL 70-110 N Performed by certified hand router operator at [facility] [id number] 06:19:00* Test Item Value Reference Range Interpretation Comments GLUBED (test code = GLUBED) 131 MG/DL 70-110 H Performed by certified hand router operator at [facility] [id number] 20:25:00* Test Item Value Reference Range Interpretation Comments GLUBED (test code = GLUBED) 130 MG/DL 70-110 H Performed by certified hand router operator at [facility] [id number] 18:14:00* Test Item Value Reference Range Interpretation Comments GLUBED (test code = GLUBED) 155 MG/DL 70-110 H Performed by certified hand router operator at [facility] [id number] 14:44:00* Test Item Value Reference Range Interpretation Comments ACT-ISTAT (test code = ACTI) 142 SEC 74-137 H Performed by certified hand router operator at [facility] [id number] 13:09:00* Test Item Value Reference Range Interpretation Comments ACT-ISTAT (test code = ACTI) 164 SEC 74-137 H Performed by certified hand router operator at [facility] [id number] 11:03:00* Test Item Value Reference Range Interpretation Comments GLUBED (test code = GLUBED) 105 MG/DL 70-110 N Performed by certified hand router operator at [facility] [id number] 09:55:00* Test Item Value Reference Range Interpretation Comments ACT-ISTAT (test code = ACTI) 335 SEC 74-137 H Performed by certified hand router operator at [facility] [id number] 09:55:00* Test Item Value Reference Range Interpretation Comments ACT-ISTAT (test code = ACTI) 329 SEC 74-137 H Performed by certified hand router operator at [facility] [id number] 09:55:00* Test Item Value Reference Range Interpretation Comments ACT-ISTAT (test code = ACTI) 257 SEC 74-137 H Performed by certified hand router operator at [facility] - [place] ANGIO [id number] 17:42:00 Name: KELLY GROVES [place] [facility] 1945 Age/S: 73 / F [address] [place] [address] Unit #: [id number] Loc: [place] [address] Phys: Rey Campbell MD Acct: [id number] Dis Date: Status: ADM IN PHONE #: [phone] Exam Date: 07/27/2019 1715 FAX #: [phone] Reason: PVI PROTOCOL EXAMS: CPT CODE: [id number] CT ANGIO CHEST [address] ANGIOGRAM WITH IV CONTRAST (PULMONARY VEIN MAPPING) DATE: 07/27/2019 1:44 PM : 1945; Age: 73 years y/o Female INDICATION: Chest pain PVI PROTOCOL ADMINISTERED CONTRAST: 100 mL of Isovue 300 intravenously. DLP: 849 mGy-cm CT imaging performed at this location utilizes radiation dose optimization techniques which include one or more of the following: -Automated exposure control -Adjustment of the mA and/or kV according to patient size - Use of iterative reconstruction technique FINDINGS: Contiguous 0.5 mm axial images of the chest were obtained with IV contrast using the CT angiogram protocol with a 64-slice multidetector scanner. Images were obtained from the thoracic inlet through below the level of the adrenal glands. Particular attention was given to the left atrium and pulmonary veins. The acquired data was used to create multiplanar reformats and 3D volume rendering reconstructions with the use of the work station as per CT Angiogram protocol. Pulmonary vein measurements (measurement plane obtained 5 mm distal to vessel ostia): Right superior pulmonary vein (RSPV): 16 mm. Right inferior pulmonary vein (RIPV): 15 mm. Left superior pulmonary vein (LSPV) and Left inferior pulmonary vein (LIPV) common trunk: 23 mm. Cardiomegaly with coronary artery calcification.. IMPRESSION: 1. Cardiomegaly with coronary artery disease. Please note that vessels bifurcating at a distance equal to or greater than 5 mm from the expected outer margin of the left atrium are considered to have a common ostium. PAGE 1 Signed Report (CONTINUED) Name: KELLY GROVES [facility] : 1945 Age/S: 73 / F [address] [place] [address] Unit #: [id number] Loc: [place] [address] Phys: Rey Campbell MD Acct: [id number] Dis Date: Status: ADM IN PHONE #: [phone] Exam Date: 07/27/2019 1715 FAX #: [phone] Reason: PVI PROTOCOL EXAMS: CPT CODE: [id number] CT ANGIO CHEST 86036 < Continued> at 1742 Reported and signed by: Luis Melendrez D.O. CC: Rey Campbell MD; Ron Cobb MD; Ishan [facility]Nov[facility] Technologist:Bean Bermudez RT(R)(CT) CTDI: DLP: Trnscb Date/Time: 07/27/2019 (1741) [email or web address] Orig Print D/T: S: 07/27/2019 (0518) PAGE 2 Signed Report LIPOPROTEIN [id number] 09:30:00* Test Item Value Reference Range Interpretation Comments LIPOPROTEIN LDL (test code = LDL) 58 mg/dL 0-100 N <100 [id number] NEAR OPTIMAL/ABOVE [id number] HIGH>KN=289 VERY HIGH*Guidelines provided by the National Cholesterol EducationProgram Adult Treatment Panel III [id number] 08:54:00* Test Item Value Reference Range Interpretation Comments TROPONIN-I (test code = TROPI) 0.068 ng/mL 0.000-0.045 HH Negative: <= 0.045 Positive: >= 0.046 Correlation with serial results, other cardiac markers andclinical findings is necessary to determine the clinicalsignificance of this result. Results using different methodologies should not be comparedto one another as quantitative results may vary by method. COMMENTS: 3 troponins total (including troponin done in ED)[id number] 06:57:00* Test Item Value Reference Range Interpretation Comments TROPONIN-I (test code = TROPI) 0.036 ng/mL 0.000-0.045 N Negative: <= 0.045 Positive: >= 0.046 Correlation with serial results, other cardiac markers andclinical findings is necessary to determine the clinicalsignificance of this result. Results using different methodologies should not be comparedto one another as quantitative results may vary by method. COMMENTS: 3 troponins total (including troponin done in ED)B-TYPE NATRIURETIC [id number] 03:02:00* Test Item Value Reference Range Interpretation Comments B-TYPE NATRIURETIC PEPTIDE (test code = BNP) 172.0 PG/ML 0-100 H - XR CHEST 1 [id number] 02:59:00 FAX: Salazar Granados MD [phone] [place]: St: REG Name: KELLY ABDI [facility] [place] : [birth year] Age/S: 73/F [address] [place] [address] Unit #: [id number] Loc: [address] [place] [address] Phys: Salazar Gregory MD Acct: [id number] Dis Date: Status: REG ER PHONE #: [phone] Exam Date: 07/27/2019223 FAX #: [phone] Reason: Chest Pain EXAMS: CPT CODE: [id number] XR CHEST 1 V 12791 EXAM: CR, XR chest one view: 2019, 0201 hours HISTORY: Chest Pain TECHNIQUE: 1 vi ew of the chest. COMPARISON: None available. FINDING S: Trachea is midline. Heart is normal in size. Pulmonary vascularity is unremarkable. There is no pleural effusion or pneumothorax. . Mild right scoliosis of the thoracolumbar spine Mild bilateral lower lobe opacities probably atelectasis. IMPRESSION: 1. Mild b ibasilar atelectasis.. SL: [JSYED-H] Tamia ctronically Signed by Kayley Arce on 07/27/2019 at 0259 Reported and signed by: Umer Arce M.D. CC: Salazar paulson MD Technologist: Diandra Owen RT(R) Trnscrd Date/Time/By: 07/27/2019 (258) : By: analilia [email or web address] Orig Print D/T: S: 07/27/2019 (3891) PAGE 1 Signed Report CBC W/AUTO [id number] 02:45:00* Test Item Value Reference Range Interpretation Comments WHITE BLOOD CELL (test code = WBC) 8.43 x10 3/uL 4.5-11.0 N RED BLOOD CELL (test code = RBC) 5.06 x10 6/uL 3.54-5.02 H HEMOGLOBIN (test code = HGB) 9.2 g/dL 11.0-15.0 L HEMATOCRIT (test code = HCT) 31.0 % 33.0-45.0 L MEAN CELL VOLUME (test code = MCV) 61.3 fL 81.0-99.0 L MEAN CELL HGB (test code = MCH) 18.2 pg 27.0-33.0 L MEAN CELL HGB CONCETRATION (test code = MCHC) 29.7 g/dL 33.0-37. 0 L RED CELL DISTRIBUTION WIDTH CV (test code = RDW) 18.2 % 11.5- 14.5 H RED CELL DISTRIBUTION WIDTH SD (test code = RDW-SD) 37.0 fL 37 .0-54.0 N PLATELET COUNT (test code = PLT) 334 x10 3/uL 150-400 N IMMATURE PLATELET FRACTION (test code = IPF) 3.0 % 0.9-11.2 N MEAN PLATELET VOLUME (test code = MPV) 10.4 fL 7.0-9.0 H NEUTROPHIL % (test code = NT%) 60.6 % 56.0-77.0 N IMMATURE GRANULOCYTE % (test code = IG%) 0.5 % 0.0-2.0 N LYMPHOCYTE % (test code = LY%) 26.6 % 14.0-32.0 N MONOCYTE % (test code = MO%) 9.6 % 4.8-9.0 H EOSINOPHIL % (test code = EO%) 1.8 % 0.3-3.7 N BASOPHIL % (test code = BA%) 0.9 % 0.0-2.0 N NUCLEATED RBC % (test code = NRBC%) 0.0 % 0-0 N NEUTROPHIL # (test code = NT#) 5.11 x10 3/uL 2.0-7.6 N IMMATURE GRANULOCYTE # (test code = IG#) 0.04 x10 3/uL 0.00-0.03 H LYMPHOCYTE # (test code = LY#) 2.24 x10 3/uL 1.0-3.8 N MONOCYTE # (test code = MO#) 0.81 x10 3/uL 0.1-0.8 H EOSINOPHIL # (test code = EO#) 0.15 x10 3/uL 0.0-0.2 N BASOPHIL # (test code = BA#) 0.08 x10 3/uL 0.0-0.2 N NUCLEATED RBC # (test code = NRBC#) 0.00 x10 3/uL 0.0-0.1 N MANUAL DIFF REQUIRED (test code = MDIFF) NO RBC [id number] 02:45:00* Test Item Value Reference Range Interpretation Comments POLYCHROMASIA (test code = POLC) SLIGHT HYPOCHROMIA (test code = HYPO) 1+ POIKILOCYTOSIS (test code = POIK) 1+ BASOPHILIC STIPPLING (test code = STP) FEW ANISOCYTOSIS (test code = ANISO) 2+ MICROCYTOSIS (test code = MICR) 2+ ELLIPTOCYTES (test code = ELL) FEW SCHISTOCYTES (test code = GINA) FEW STOMATOCYTES (test code = STO) FEW BASIC METABOLIC [id number] 02:42:00* Test Item Value Reference Range Interpretation Comments SODIUM (test code = NA) 135 mEq/L 134-147 N POTASSIUM (test code = K) 4.2 mEq/L 3.4-5.0 N CHLORIDE (test code = CL) 102 mEq/L 100-108 N CARBON DIOXIDE (test code = CO2) 29 mEq/L 21-33 N ANION GAP (test code = GAP) 8 0-20 N GLUCOSE (test code = GLU) 151 mg/dL 70-110 H BLOOD UREA NITROGEN (test code = BUN) 20 mg/dL 7-18 H GLOMERULAR FILTRATION RATE (test code = GFR) 54.2 70-80 L Units of measure = ml/min/1.73 m2 CREATININE (test code = CREAT) 1.0 mg/dL 0.6-1.3 N CALCIUM (test code = CA) 9.1 mg/dL 8.0-10.5 N HEPATIC FUNCTION [id number] 02:42:00* Test Item Value Reference Range Interpretation Comments TOTAL PROTEIN (test code = PROT) 8.8 g/dL 6.4-8.2 H ALBUMIN (test code = ALB) 3.70 g/dL 3.4-5.0 N BILIRUBIN TOTAL (test code = BILT) 0.3 MG/DL <1.5 N BILIRUBIN DIRECT (test code = BILD) 0.10 MG/DL 0.0-0.30 N BILIRUBIN INDIRECT (test code = BILIND) 0.20 MG/DL SGOT/AST (test code = AST) 63 IUnit/L 15-37 H SGPT/ALT (test code = ALT) 51 IUnit/L 15-65 N ALKALINE PHOSPHATASE TOTAL (test code = ALKP) 91 IUnit/L 20-125 N [id number] 02:42:00* Test Item Value Reference Range Interpretation Comments LIPASE (test code = LIP) 243 IUnit/L 73-393 N [id number] 02:42:00* Test Item Value Reference Range Interpretation Comments MAGNESIUM (test code = MAG) 1.70 mg/dL 1.8-2.4 L TSH REFLEX TO [id number] 02:42:00* Test Item Value Reference Range Interpretation Comments TSH REFLEX TO FT4 (test code = TSHREFLEX) 3.62 IU/mL 0.42-5.47 N PROTHROMBIN [id number] 02:34:00* Test Item Value Reference Range Interpretation Comments PROTHROMBIN TIME PATIENT (test code = PTP) 10.8 SECONDS 9.3-12.9 N INTERNATIONAL NORMAL RATIO (test code = INR) 1.0 0.8-1.2 N TARGET INR BY INDICATION Indication INR1. Prophylaxis of venous thrombosis 2.0 - 3.0 (orthopedic surgery), Prophylaxis of venous thrombosis (other than high-risk surgery), Treatment of Deep Vein Thrombosis/Pulmonary Embolism, Prevention of systemic embolism - Tissue heart valves, Acute Myocardial Infarction (to prevent systemic embolism), Valvular heart disease, Atrial Fibrillation, Bileaflet mechanical valve in aortic position.2. Mechanical prosthetic valves (high risk), 2.5 - 3.5 Presence of Lupus Anticoagulant or Antiphospholipid Antibodies, Prevention of systemic embolism - Acute Myocardial Infarction (to prevent recurrent infarct). THROMBOPLASTIN TIME [id number] 02:34:00* Test Item Value Reference Range Interpretation Comments THROMBOPLASTIN TIME PARTIAL (test code = PTT) 31.4 Seconds 25.0-39. 5 N Therapeutic Range: 50.4 - 88.3 Seconds Effective 09/09/2018 [id number] 02:34:00* Test Item Value Reference Range Interpretation Comments D-DIMER (test code = DDIMER) 702 ng/mlFEU <=500 HH THROMBOSIS AND/OR PULMONARY EMBOLISM AND THE CLINICAL CUT- OFF VALUE FOR EXCLUSION (500 ng/mL FEU) OF THESE CONDITIONSIS VALIDATED BY THE FASHION STYLING INTERN OF THE METHOD. A NEGATIVE D-DIMER RESULT WHEN COMBINED WITH A CLINICALASSESSMENT OF LOW PRETEST PROBABILITY HAS BEEN SHOWN TO HAVEA HIGH NEGATIVE PREDICTIVE VALUE OF DVT OR PE. D-DIMER VALUES >500 ng/mL FEU ARE NOT DIAGNOSTIC FOR DVT, PEor DIC WITHOUT OTHER CONFIRMATORY TESTS AND APPROPRIATECLINICAL EUALUATIONS. BASIC METABOLIC [id number] 02:32:00* Test Item Value Reference Range Interpretation Comments SODIUM (test code = NA) 135 mEq/L 134-147 N POTASSIUM (test code = K) 4.2 mEq/L 3.4-5.0 N CHLORIDE (test code = CL) 102 mEq/L 100-108 N CARBON DIOXIDE (test code = CO2) 29 mEq/L 21-33 N ANION GAP (test code = GAP) 8 0-20 N GLUCOSE (test code = GLU) 151 mg/dL 70-110 H BLOOD UREA NITROGEN (test code = BUN) 20 mg/dL 7-18 H GLOMERULAR FILTRATION RATE (test code = GFR) 70-80 CREATININE (test code = CREAT) mg/dL 0.6-1.3 CALCIUM (test code = CA) 9.1 mg/dL 8.0-10.5 N HEPATIC FUNCTION [id number] 02:32:00* Test Item Value Reference Range Interpretation Comments TOTAL PROTEIN (test code = PROT) g/dL 6.4-8.2 ALBUMIN (test code = ALB) 3.70 g/dL 3.4-5.0 N BILIRUBIN TOTAL (test code = BILT) MG/DL <1.5 BILIRUBIN DIRECT (test code = BILD) MG/DL 0.0-0.30 SGOT/AST (test code = AST) IUnit/L 15-37 SGPT/ALT (test code = ALT) IUnit/L 15-65 ALKALINE PHOSPHATASE TOTAL (test code = ALKP) IUnit/L 20-125 [id number] 02:32:00* Test Item Value Reference Range Interpretation Comments LIPASE (test code = LIP) IUnit/L 73-393 [id number] 02:32:00* Test Item Value Reference Range Interpretation Comments MAGNESIUM (test code = MAG) mg/dL 1.8-2.4 TSH REFLEX TO [id number] 02:32:00* Test Item Value Reference Range Interpretation Comments TSH REFLEX TO FT4 (test code = TSHREFLEX) IU/mL 0.42-5.47 CBC W/AUTO [id number] 02:20:00* Test Item Value Reference Range Interpretation Comments WHITE BLOOD CELL (test code = WBC) 8.43 x10 3/uL 4.5-11.0 N RED BLOOD CELL (test code = RBC) 5.06 x10 6/uL 3.54-5.02 H HEMOGLOBIN (test code = HGB) 9.2 g/dL 11.0-15.0 L HEMATOCRIT (test code = HCT) 31.0 % 33.0-45.0 L MEAN CELL VOLUME (test code = MCV) 61.3 fL 81.0-99.0 L MEAN CELL HGB (test code = MCH) 18.2 pg 27.0-33.0 L MEAN CELL HGB CONCETRATION (test code = MCHC) 29.7 g/dL 33.0-37. 0 L RED CELL DISTRIBUTION WIDTH CV (test code = RDW) 18.2 % 11.5- 14.5 H RED CELL DISTRIBUTION WIDTH SD (test code = RDW-SD) 37.0 fL 37 .0-54.0 N PLATELET COUNT (test code = PLT) 334 x10 3/uL 150-400 N IMMATURE PLATELET FRACTION (test code = IPF) 3.0 % 0.9-11.2 N MEAN PLATELET VOLUME (test code = MPV) 10.4 fL 7.0-9.0 H NEUTROPHIL % (test code = NT%) 60.6 % 56.0-77.0 N IMMATURE GRANULOCYTE % (test code = IG%) 0.5 % 0.0-2.0 N LYMPHOCYTE % (test code = LY%) 26.6 % 14.0-32.0 N MONOCYTE % (test code = MO%) 9.6 % 4.8-9.0 H EOSINOPHIL % (test code = EO%) 1.8 % 0.3-3.7 N BASOPHIL % (test code = BA%) 0.9 % 0.0-2.0 N NUCLEATED RBC % (test code = NRBC%) 0.0 % 0-0 N NEUTROPHIL # (test code = NT#) 5.11 x10 3/uL 2.0-7.6 N IMMATURE GRANULOCYTE # (test code = IG#) 0.04 x10 3/uL 0.00-0.03 H LYMPHOCYTE # (test code = LY#) 2.24 x10 3/uL 1.0-3.8 N MONOCYTE # (test code = MO#) 0.81 x10 3/uL 0.1-0.8 H EOSINOPHIL # (test code = EO#) 0.15 x10 3/uL 0.0-0.2 N BASOPHIL # (test code = BA#) 0.08 x10 3/uL 0.0-0.2 N NUCLEATED RBC # (test code = NRBC#) 0.00 x10 3/uL 0.0-0.1 N MANUAL DIFF REQUIRED (test code = MDIFF) NO RBC [id number] 02:20:00* Test Item Value Reference Range Interpretation Comments ANISOCYTOSIS (test code = ANISO) CBC W/AUTO [id number] 02:20:00* Test Item Value Reference Range Interpretation Comments WHITE BLOOD CELL (test code = WBC) 8.43 x10 3/uL 4.5-11.0 N RED BLOOD CELL (test code = RBC) 5.06 x10 6/uL 3.54-5.02 H HEMOGLOBIN (test code = HGB) 9.2 g/dL 11.0-15.0 L HEMATOCRIT (test code = HCT) 31.0 % 33.0-45.0 L MEAN CELL VOLUME (test code = MCV) 61.3 fL 81.0-99.0 L MEAN CELL HGB (test code = MCH) 18.2 pg 27.0-33.0 L MEAN CELL HGB CONCETRATION (test code = MCHC) 29.7 g/dL 33.0-37. 0 L RED CELL DISTRIBUTION WIDTH CV (test code = RDW) 18.2 % 11.5- 14.5 H RED CELL DISTRIBUTION WIDTH SD (test code = RDW-SD) 37.0 fL 37 .0-54.0 N PLATELET COUNT (test code = PLT) 334 x10 3/uL 150-400 N IMMATURE PLATELET FRACTION (test code = IPF) 3.0 % 0.9-11.2 N MEAN PLATELET VOLUME (test code = MPV) 10.4 fL 7.0-9.0 H NEUTROPHIL % (test code = NT%) 60.6 % 56.0-77.0 N IMMATURE GRANULOCYTE % (test code = IG%) 0.5 % 0.0-2.0 N LYMPHOCYTE % (test code = LY%) 26.6 % 14.0-32.0 N MONOCYTE % (test code = MO%) 9.6 % 4.8-9.0 H EOSINOPHIL % (test code = EO%) 1.8 % 0.3-3.7 N BASOPHIL % (test code = BA%) 0.9 % 0.0-2.0 N NUCLEATED RBC % (test code = NRBC%) 0.0 % 0-0 N NEUTROPHIL # (test code = NT#) 5.11 x10 3/uL 2.0-7.6 N IMMATURE GRANULOCYTE # (test code = IG#) 0.04 x10 3/uL 0.00-0.03 H LYMPHOCYTE # (test code = LY#) 2.24 x10 3/uL 1.0-3.8 N MONOCYTE # (test code = MO#) 0.81 x10 3/uL 0.1-0.8 H EOSINOPHIL # (test code = EO#) 0.15 x10 3/uL 0.0-0.2 N BASOPHIL # (test code = BA#) 0.08 x10 3/uL 0.0-0.2 N NUCLEATED RBC # (test code = NRBC#) 0.00 x10 3/uL 0.0-0.1 N MANUAL DIFF REQUIRED (test code = MDIFF) NO RBC [id number] 02:20:00* Test Item Value Reference Range Interpretation Comments ANISOCYTOSIS (test code = ANISO) TROPONIN-I [id number] 02:07:00* Test Item Value Reference Range Interpretation Comments TROPONIN-I RAPID (test code = TROPIRAP) 0.00 ng/mL 0.00-0.08 N Performed by certified hand router operator at [facility] Negative: <= 0.08 Positive: >= 0.09An elevated troponin value alone is not sufficient todiagnose a myocardial infarction. Rather, the patient sclinical presentation (history, physical exam) and ECGshould be used in conjunction with troponin in thediagnostic evaluation of suspected myocardial infarction. Aserial sampling protocol is recommended to facilitate the identification of temporal changes in troponin levels characteristic of [place]. SP LUMBAR, COMPLETE MIN [id number] 18:38:00 [place] [address] Patient Name: KELLY GROVES MR #: [id number] : 1945 Age/Sex: 72/F Req #: [id number] Adm Physician: Ordered by: MILADY BERG MD Report #: [id number] Location: [facility] Room/Bed: Procedure: [id number] DX/S P LUMBAR, COMPLETE MIN 4VW Exam Date: 06/19/18 Exam Time: 1710 REPORT STATUS: Signed Lumbar Spine Radiographs: 5 views including obliques HISTORY: LUMBAR PAIN INTO RT LOWER EXTREMITY, back pain COMPARISON: None available. DISC USSION: Suboptimal right oblique projection. The osseous structures are part ially obscured by stool and bowel gas. Five non-rib bearing lumbar vertebral b odies. Moderate left convex curvature. No displaced fracture or compression deformity is identified. Disc Spaces: Multilevel degenerative changes, mo derate on the right concavity of the curvature. Facets: Multilevel dege nerative changes, most notably severe on the right side of the concavity. Other: Postsurgical changes. IMPRESSION: 1. No acute radiographic abn ormality. 2. Multilevel degenerative changes, most notably severe hypertrophi c facet arthrosis at L4-5 and L5-S1. Signed by: Uyen CarcamoO., M.M.M. on 06/19/2018 6:41 PM Dictated By: BERENICE NGO DO Electronica lly Signed By: BERENICE NGO DO on 06/19/181840 Transcribed By: LAKIA on 06/19 COPY TO: MILADY BERG MD HIP RIGHT 2-3 VW (+/- PELVIS) [place] [address] Patient Name: KELLY GROVES MR #: [id number] : Age/Sex: 71/F Req #: [id number] Adm Physician: Ordered by: MILADY BERG MD Report #: [id number] Location: [facility] Room/Bed: Procedure: [id number] DX/HIP RIGHT 2-3 VW (+/- PELVI S) Exam Date: Exam Time: REPORT STATUS: Sign ed PROCEDURE: HIP RIGHT 2-3 VW (+/- PELVIS) COMPARISON: None. INDICATIONS: RIGHT HIP/LEG PAIN FINDINGS: No acute fracture or dis location. Partially imaged degenerative changes of right SI joint. Right pelvi c phleboliths. CONCLUSION: No acute fracture or dislocation of th e right hip. Dictated by: Jam Hays M.D. on 03/05/2017 at 15 :41 Electronically approved by: Jam Hays M.D. on 03/05/2017 at 15: 41 Dictated By: JAM HAYS MD 40 Transcribed By: ISABELLA on 03/05/171540 CO PY TO: MILADY BERG MD SP LUMBAR, COMPLETE MIN 4VW [place] [address] Patient Name: KELLY GROVES MR #: [id number] : 1945 Age/Sex: 71/F Req #: [id number] Adm Physician: Ordered by: MILADY BERG MD Report #: [id number] Location: [facility] Room/Bed: Procedure: [id number] DX/SP LUMBAR, COMPLETE MIN 4VW Exam Date: 03/05/17 Exam Time: [address] ATUS: Signed PROCEDURE: L-SPINE COMPLETE COMPARISON: None. IN DICATIONS: RIGHT HIP/LEG PAIN FINDINGS: There are 5 lumbar-type rose tebral bodies. There is levoscoliosis of the lumbar spine with multilevel deg enerative changes. There are no fractures, lytic or blastic lesions. Vertebra l body heights are maintained. Multilevel facet arthropathy, especially on the right side and lower lumbar spine. Vascular calcifications. CONCL USION: Levoscoliosis of lumbar spine with multilevel degenerative change an d facet arthropathy. No acute fracture or subluxation. Dictated b y: Jam Hays M.D. on 03/05/2017 at 15:45 Electronically approved by : Jam Hays M.D. on 03/05/2017 at 15:45 Dictated By: AGUSTO HAYS MD [address] scribed By: ISABELLA on 03/05/17 1544 COPY TO: MILADY BERG MD
[2019-10-29] MEDS ORDERED: PIPER-TAZ 3.375 GM 50 ML IV STA (14:01)
[2019-10-29] MEDS ORDERED: ACETAMINOPHEN 325 MG TAB PO STA (14:01)
[2019-10-29 14:14] LABS: BASOPHILS # (AUTO) 0.1 (0.0-0.1); BASOPHILS % 0.7 % (0.0-1.0); EOSINOPHILS % 0.4 % (0.0-6.0); HEMATOCRIT 34.8 % (34.2-44.1); LYMPHOCYTES # (AUTO) 1.4 (1.0-3.2); LYMPHOCYTES % 14.4 % (18.0-39.1); MEAN CORPUSCULAR HEMOGLOBIN 19.3 pg (28-32); MEAN CORPUSCULAR HGB CONC 31.6 g/dL (31-35); MEAN CORPUSCULAR VOLUME 61.1 fL (81-99); MONOCYTES # (AUTO) 0.7 (0.2-0.8); MONOCYTES % 6.8 % (4.4-11.3); NEUTROPHILS # (AUTO) 7.5 (2.1-6.9); NEUTROPHILS % 76.5 % (38.7-80.0); PLATELET COUNT 432 x10e3/uL (140-360); RED CELL DISTRIBUTION WIDTH 23.4 % (11.7-14.4)
[2019-10-29 14:35] LABS: ALBUMIN/GLOBULIN RATIO 0.9 (0.8-2.0); ANION GAP 20.3 mmol/L (8-16); CALCIUM 9.8 mg/dL (8.4-10.2); CREATININE, SERUM 1.66 mg/dL (0.57-1.11); POTASSIUM 3.3 mmol/L (3.5-5.1)
[2019-10-29] MEDS ORDERED: MORPHINE SULFATE INJ 4 MG/ML INJ 1ML IV PRN (15:30)
[2019-10-29] MEDS: ONDANSETRON HCL INJ 2MG/ML 2ML 2 MG/ML VIAL IV PRN ×2 (15:40→23:19)
--- NOTE | 2019-10-29 15:54 | Emergency Department Note ---
History of Present Illnes History of Present Illness Chief Complaint: Abdominal Complaints History of Present Illness This is a 73 year old female arrives the ED with diffuse abdominal pain. Patient recently discharged from [facility] for diverticulitis, states pain has returned and is now worse. Patient also complaining of nausea and vomiting for the past 2 days. Chief Complaint Comment HERE FOR DIFFUSE LOWER ABDOMINAL PAIN SINCE THIS MORNING, STATES THAT SHE ALSO HAS NAUSEA AND VOMITING. WAS RECENTLY DISCHARGED FROM [facility] Historian: Patient Arrival Mode: Car Licensing Services Clerk Required: No Onset (how long ago): day(s) Radiation: abdomen Severity: moderate Onset quality: gradual Duration (how long): day(s) Timing of current episode: constant Progression: worsening Chronicity: recurrent Context: recent illness Relieving factors: none Exacerbating factors: eating Associated symptoms: loss of appetite, nausea/vomiting, weakness Past Medical/Family History Physician Review I have reviewed the patient's past medical and family history. Any updates have been documented here. 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 DIVERTICULITIS Past Surgical History: Hysterectomy, Knee Replacement Other Surgery: KNEE SURGERY 1999 74% PANCREAS OUT 2002 Social History Smoking Cessation: Never Smoker Alcohol Use: Social Any Illegal Drug Use: No TB Exposure/Symptoms: No Physically hurt or threatened: No Family History Family history of heart diseas: Yes Other Last Tetanus: UNK Any Pre-Existing Lines (PICC,: No Is patient up to date on immun: No Review of Systems Review of Systems Constitutional: as per HPI EENTM: no symptoms Cardiovascular: no symptoms Respiratory: no symptoms Gastrointestinal: abdominal pain, nausea, vomiting Genitourinary: no symptoms Musculoskeletal: no symptoms Neurological: no symptoms Psychological: no symptoms Endocrine: no symptoms Hematological/Lymphatic: no symptoms Review of other systems All other systems reviewed and negative. Physical Exam Related Data Allergies: Coded Allergies: Sulfa (Sulfonamide Antibiotics) (Verified Allergy, Mild, ANEMIA, 08/16/10) metoclopramide (Verified Adverse Reaction, Severe, 10/10/16) stroke-like reaction Triage Vital Signs Vital Signs Date Time Temp Pulse Resp B/P (MAP) Pulse Ox O2 Delivery O2 Flow Rate FiO2 10/29/19 13:53 97.0 70 16 91/51 100 Vital signs reviewed: Yes Physical Exam CONSTITUTIONAL Constitutional: well-developed, well-nourished, ill appearing HENT HENT: normocephalic, atraumatic, oropharynx clear/moist, nose normal HENT L/R: left ext ear normal, right ext ear normal EYES Eyes: PERRL, conjunctivae normal NECK Neck: ROM normal PULMONARY Pulmonary: effort normal, breath sounds normal CARDIOVASCULAR Cardiovascular: regular rhythm, heart sounds normal, capillary refill normal, normal rate GASTROINTESTINAL Abdominal: soft, bowel sounds normal, tender GENITOURINARY Genitourinary: exam deferred SKIN Skin: warm, dry MUSCULOSKELETAL Musculoskeletal: ROM normal NEUROLOGICAL Neurological: alert, oriented x 3, no gross motor or sensory deficits PSYCHOLOGICAL Psychological: mood/affect normal, judgement normal Results Laboratory Result Diagram: 10/29/19 1402 10/29/19 1402 Laboratory Laboratory Tests Test 10/29/19 15:03 10/29/19 14:02 Lactic Acid Level 2.1 mmol/L (0.5-2.0) White Blood Count 9.82 x10e3/uL (4.8-10.8) Red Blood Count 5.70 x10e6/uL (3.6-5.1) Hemoglobin 11.0 g/dL (12.0-16.0) Hematocrit 34.8 % (34.2-44.1) Mean Corpuscular Volume 61.1 fL (81-99) Mean Corpuscular Hemoglobin 19.3 pg (28-32) Mean Corpuscular Hemoglobin Concent 31.6 g/dL (31-35) Red Cell Distribution Width 23.4 % (11.7-14.4) Platelet Count 432 x10e3/uL (140-360) Neutrophils (%) (Auto) 76.5 % (38.7-80.0) Lymphocytes (%) (Auto) 14.4 % (18.0-39.1) Monocytes (%) (Auto) 6.8 % (4.4-11.3) Eosinophils (%) (Auto) 0.4 % (0.0-6.0) Basophils (%) (Auto) 0.7 % (0.0-1.0) Neutrophils # (Auto) 7.5 (2.1-6.9) Lymphocytes # (Auto) 1.4 (1.0-3.2) Monocytes # (Auto) 0.7 (0.2-0.8) Eosinophils # (Auto) 0.0 (0.0-0.4) Basophils # (Auto) 0.1 (0.0-0.1) Absolute Immature Granulocyte (auto 0.12 x10e3/uL (0-0.1) Sodium Level 135 mmol/L (136-145) Potassium Level 3.3 mmol/L (3.5-5.1) Chloride Level 94 mmol/L (98-107) Carbon Dioxide Level 24 mmol/L (22-29) Anion Gap 20.3 mmol/L (8-16) Blood Urea Nitrogen 19 mg/dL (7-26) Creatinine 1.66 mg/dL (0.57-1.11) Estimat Glomerular Filtration Rate 30 ML/MIN (60-) BUN/Creatinine Ratio 11 (6-25) Glucose Level 183 mg/dL (74-118) Calcium Level 9.8 mg/dL (8.4-10.2) Total Bilirubin 0.9 mg/dL (0.2-1.2) Aspartate Amino Transf (AST/SGOT) 70 IU/L (5-34) Alanine Aminotransferase (ALT/SGPT) 42 IU/L (0-55) Alkaline Phosphatase 55 IU/L (40-150) Total Protein 8.7 g/dL (6.5-8.1) Albumin 4.0 g/dL (3.5-5.0) Globulin 4.7 g/dL (2.3-3.5) Albumin/Globulin Ratio 0.9 (0.8-2.0) Lab results reviewed: Yes Imaging Imaging results reviewed: Yes Impressions IMPRESSION: No acute cardiopulmonary process identified. IMPRESSION: 1. Findings may reflect fecal impaction with constipation. 2. Status post cholecystectomy. Mild central intrahepatic biliary dilatation mild prominence of the common bile duct may reflect reservoir effect status post cholecystectomy. 3. Status post partial pancreatectomy. 4. Increased attenuation of the hepatic parenchyma is a nonspecific finding, however, which can most commonly be seen with hemachromatosis and amiodarone deposition in the proper clinical setting. Signed by: Dr. Garfield Zamudio M.D. on 10/29/2019 7:53 PM Critical Care Time Subsequent provider I assumed direction of critical care for this patient from another provider of my specialty. Assessment & Plan Assessment & Plan Final Impression: (1) Abdominal pain Assessment & Plan 73-year-old female exceedingly diffuse abdominal pain mild hypotension noted in triage Patient empirically covered and she did initially severe sepsis with an acute abdomen Patient received blood cultures, lactic acid and broad-spectrum antibiotics were given- repeat lactic acid showed pharynx improvement Last Vital Signs Date Time Temp Pulse Resp B/P (MAP) Pulse Ox O2 Delivery O2 Flow Rate FiO2 10/29/19 13:53 97.0 70 16 91/51 100 Home Meds Reported Medications Amiodarone Hcl (AMIODARONE HCL) 200 Mg Tablet, 400 MG PO BID 10/30/19 Apixaban (Eliquis) 5 Mg Tablet, 5 MG PEG BID 10/30/19 Aspirin (ASPIRIN EC) 81 Mg Tablet.dr, 81 MG PO DAILY, #30 TAB 10/30/19 Cholecalciferol (Vitamin D3) (VITAMIN D3) 2,400 Unit/1 Ml Liquid, 93474 UNIT PO DAILY 10/30/19 Ferrous Sulfate (FERROUS SULFATE) 325 Mg Tablet, 325 MG PO BID 10/30/19 Gabapentin (GABAPENTIN) 100 Mg Capsule, 100 MG PO TID 10/30/19 Tolvaptan (SAMSCA) 15 Mg Tab, 15 MG PO q24hr 10/30/19 Valsartan (DIOVAN) 160 Mg Tab, 160 MG PO BID, #60 TAB 10/29/19 Ondansetron Hcl (ONDANSETRON HCL) 2 Mg/1 Ml Vial, 4 MG PO Q8H PRN for NAUSEA, VIAL 10/29/19 Isosorbide Mononitrate (ISOSORBIDE MONONITRATE) 20 Mg Tablet, 60 MG PO DAILY, #30 TAB 10/29/19 Hydrocodone Bit/Acetaminophen (NORCO 5-325 TABLET) 1 Each Tablet, 1 TAB PO Q4H PRN for MODERATE PAIN (4-6), TAB 10/29/19 Montelukast Sodium (SINGULAIR) 10 Mg Tablet, 10 MG PO DAILY 10/06/16 Metoprolol Succinate (METOPROLOL SUCCINATE) 25 Mg Tab.er.24h, 25 MG PO BID 11/08/12 Simvastatin (SIMVASTATIN) 40 Mg Tablet, 40 MG PO DAILY 11/08/12 Esomeprazole Magnesium (NEXIUM) 40 Mg Capsule.dr, 40 MG PO DAILY 11/08/12 Discontinued Reported Medications Simvastatin (SIMVASTATIN) 40 Mg Tablet, 40 MG PO 2100, #30 TAB 10/29/19 Nitroglycerin (NITROGLYCERIN) 0.4 Mg Tab.subl, 0.4 MG SL Q5MIN, TAB 10/06/16 Furosemide (LASIX) 20 Mg Tablet, 20 MG PO PRN, #30 TAB 10/06/16 Amlodipine Besylate (AMLODIPINE BESYLATE) 5 Mg Tablet, 5 MG PO DAILY, #30 TAB 10/03/16 Losartan Potassium (COZAAR) 25 Mg Tablet, 100 MG PO DAILY, #60 TAB 01/29/14 Metformin Hcl (METFORMIN HCL) 500 Mg Tablet, 500 MG PO BID 11/08/12 Medications in the ED Acetaminophen 650 mg ONCE STAT PO ; Start 10/29/19 at 14:01; Stop 10/29/19 at 14:06; Status DC Piperacillin Sod/ Tazobactam Sod 50 ml @ 50 mls/hr NOW STAT IV ; Start 10/29/19 at 14:01; Stop 10/29/19 at 15:00; Status DC Morphine Sulfate 4 mg Q6H PRN IV SEVERE PAIN (7-10); Start 10/29/19 at 15:30; Stop 11/05/19 at 15:29 Ondansetron HCl 4 mg Q6H PRN IV NAUSEA AND VOMITING; Start 10/29/19 at 15:30; Stop 11/28/19 at 15:29 KIRSTEN LENZ DO Oct 29, 2019 15:54
--- NOTE | 2019-10-29 16:08 | Diagnostic Imaging Report ---
EXAM: CHEST SINGLE (NOT PORTABLE) DATE: 10/29/2019 3:52 PM INDICATION: Nausea, vomiting COMPARISON: None FINDINGS: There are mildly increased bibasilar opacity suggestive of atelectasis. There is no evidence for large focal consolidation, pneumothorax, or significant pleural effusion. The cardiomediastinal silhouette is magnified by technique but otherwise unremarkable. Atherosclerotic calcifications are noted within the thoracic aorta. There is scoliosis and multilevel degenerative changes of the visualized spine. No acute osseous abnormality is identified. The surrounding soft tissues are unremarkable. IMPRESSION: No acute cardiopulmonary process identified. Signed by: Dr. Ja Casas MD on 10/29/2019 4:05 PM
[2019-10-29] MEDS ORDERED: DIOVAN160 MG PO (16:17)
[2019-10-29] MEDS ORDERED: ISOSORBIDE MONO20 MG PO (16:17)
[2019-10-29] MEDS ORDERED: ONDANSETRON2 MG/1 ML PO (16:17)
[2019-10-29] MEDS ORDERED: NORCO 5-325 TA1 EACH PO (16:17)
[2019-10-29] MEDS ORDERED: SIMVASTATIN40 MG PO (16:17)
[2019-10-29] MEDS ORDERED: SODIUM CHLORIDE 0.9% 1000ML 1,000 ML IV STA (16:27)
[2019-10-29 16:50] LABS: BILIRUBIN,URINE MODERATE (NEGATIVE); CLARITY,URINE SL CLOUDY (CLEAR); COLOR,URINE AMBER (YELLOW); KETONES,URINE TRACE (NEGATIVE); LEUKOCYTE ESTERASE ,URINE NEGATIVE (NEGATIVE); NITRITE,URINE NEGATIVE (NEGATIVE); PROTEIN,URINE DIPSTICK 1+ (NEGATIVE); URINE UROBILINOGEN 1 mg/dL (0.2 - 1)
[2019-10-29 17:48] LABS: BACTERIA,URINE FEW /HPF; EPITHELIAL CELLS,URINE FEW /LPF; TRANSITIONAL EPI CELLS,URINE FEW; WBC,URINE (MAN) 0-5 /HPF (0-5)
--- NOTE | 2019-10-29 18:51 | NUR ---
REPORT RC'D FROM Paul MOREIRA RN
--- NOTE | 2019-10-29 19:00 | NUR ---
Covid 19 swab obtained and sent to lab.
--- OUTSIDE RECORDS SUMMARY | 2019-10-29 19:37 | XMS REPORT | Continuity of Care Document ---
Author Author [facility] t Organization [facility] Address [address] [place] [address] Phone Unavailable Care Team Providers Care Curtain Inspector Name Role Phone Starr LENZ Attphys Unavailable BERGMILADY Attphys Unavailable Payers Payer Name Policy Type Policy Number Effective Date Expiration Date S ource Problems This patient has no known problems. Allergies, Adverse Reactions, Alerts Allergy Name Allergy Type Status Severity Reaction(s) Onset Date Inacti ve Date Treating Clinician Comments Source Sulfa (Sulfonamide Antibiotics) DA Active U 2019-09-11 00 :00:00 [facility] Sulfa (Sulfonamide Antibiotics) DA Active U 2019-08-24 00 :00:00 [facility] Sulfa (Sulfonamide Antibiotics) DA Active U 2019-07-27 00 :00:00 [facility] No Known Contrast Allergies DA Active U 2001-03-04 00:00: 00 [facility] No Known Food Allergies DA Active U 2001-03-04 00:00:00 [facility] No Known Other Allergies DA Active U 2001-03-04 00:00:00 [facility] SULFA DRUGS DA Active U 2001-03-04 00:00:00 [facility] Medications This patient has no known medications. Procedures This patient has no known procedures. Results Test Description Test Time Test Comments Results Result Comments Source CHEST SINGLE (NOT PORTABLE) 2019-10-29 16:03:00 [place] [address] Patient Name: KELLY GROVES MR #: [id number] : 1945 Age/Sex: 73/F Req #: [id number] Adm Physician: Ordered by: KIRSTEN LENZ DO Report #: [id number] Location: ER Room/Bed: Procedure: [id number] DX/CHEST SINGLE (NOT PORTABLE) Exam Date: Exam Time: REPORT STATUS: Signed EXAM: CHEST SINGLE (NOT PORTABLE) DATE: 10/29/2019 3:52 PM INDICATION: Nausea, vomiting COMPARISON: None FINDINGS: There are mildly increased bibasilar opacity suggestive of atelectasis. There is no evidence for large focal consolidation, pneumothorax, or significant pleural effusion. The cardiomediastinal silhouette is magnified by technique but otherwise unremarkable. Atherosclerotic calcifications are noted within the thoracic aorta. There is scoliosis and multilevel degenerative changes of the visualized spine. No acute osseous abnormality is identified. The surrounding soft tissues are unremarkable. IMPRESSION: No acute cardiopulmonary process identified. Signed by: Dr. Ja Casas MD on 10/29/2019 4:05 PM Dictated By: JA CASAS MD 160 Transcribed By: LAKIA on 10/29/19 1603 COPY TO: KIRSTEN LENZ DO BASIC METABOLIC PANEL 2019-10-24 12:14:00 Test Item [...] CA) 8.9 mg/dL 8.0-10.5 N CBC W/AUTO [id number] 06:16:00* Test Item Value Reference Range Interpretation [...] DIFF REQUIRED (test code = MDIFF) NO [id number] 17:01:00* Test Item Value Reference Range Interpretation [...] by method. - CT ABD PELVIS W/O [id number] 14:18:00 Name: KELLY GROVES [facility] : 1945 Age/S: 73 / F [address] [place] [address] Unit #: [id number] Loc: [facility] [place] [address] Phys: Deng Morrow DO Acct: [id number] Dis Date: Status: REG ER PHONE #: [phone] Exam Date: 10/23/2019 5776 FAX #: [phone] Reason: abd pain, nausea, vomiting, diarrhea EXAMS: CPT CODE: [id number] CT ABD PELVIS W/O CONT 46612 PROCEDURE: CT ABDOMEN AND PELVIS WITHOUT CONTRAST [...] 1 Signed Report (CONTINUED) Name: KELLY GROVES [facility] : 1945 Age/S: 73 / F [address] [place], [place] [address] Unit #: [id number] Loc: [place] [address] Phys: Deng Morrow DO Acct: [id number] Dis Date: Status: REG ER PHONE #: [phone] Exam Date: 10/23/2019 9016 FAX #: [phone] Reason: abd pain, nausea, vomiting, diarrhea EXAMS: CPT CODE: [id number] ABD PELVIS W/O CONT 85660 <Continued> KIDNEYS: Normal renal contours. No urinary [...] with PAGE 2 Signed Report (CONTINUED) Name: GROVESCYNTHIA Robbins [facility] : 1945 Ag e/S: 73 / F [address] [place] [address] Unit #: [id number] Loc: [place] [address] Phys: Deng Morrow Acct: [id number] Dis Date: Status: REG ER PHONE #: [phone] Exam Date: 10/23/2019 [facility]8 FAX #: [phone] Reason: abd pain, nausea, vomiting, diarrhea EXAMS: CPT CODE: [id number] CT ABD PELVIS W/O CONT 59092 <Continued> prior studies would be helpful to confirm stability. Otherwise, further imaging options include follow-up MRI or CT in 3-6 months. 6. Mild splenomegaly. 7. Atherosclerosis. 8. Severe coronary arterial calcifications. Aortic valve calcifications. Mild cardiomegaly. REFERENCE: Management of Incidental Liver Lesions on CT: A White Paper of the ACR Incidental Findings Committee. 2017. SL: [id number] at 1418 Reported and signed by: Be Mosley M.D. CC: Deng Morrow DO Technologist:Jose D Guerra RT(R) CTDI: DLP: Trnscb Date/Time: 10/23/2019 (5948) t.AMY.KWL Orig Print D/T: S: 10/23/2019 (1287) PAGE 3 Signed Report BASIC METABOLIC [id number] 13:43:00* Test Item Value Reference Range Interpretation [...] CA) 8.9 mg/dL 8.0-10.5 N HEPATIC FUNCTION [id number] 13:43:00* Test Item Value Reference Range Interpretation [...] code = ALKP) 52 IUnit/L 20-125 N [id number] 13:43:00* Test Item Value Reference Range Interpretation Comments LIPASE (test code = LIP) 140 IUnit/L 73-393 N [id number] 13:43:00* Test Item Value Reference Range Interpretation Comments TROPONIN-I (test code = TROPI) < 0.015 ng/mL 0.000-0.045 N Negative: <= 0.045 Positive: >= 0.046 Correlation with serial results, other cardiac markers andclinical findings is necessary to determine the clinicalsignificance of this result. Results using different methodologies should not be comparedto one another as quantitative results may vary by method. CBC W/AUTO [id number] 13:36:00* Test Item Value Reference Range Interpretation [...] REQUIRED (test code = MDIFF) NO RBC [id number] 13:36:00* Test Item Value Reference Range Interpretation [...] SCHISTOCYTES (test code = GINA) FEW PROTHROMBIN [id number] 13:21:00* Test Item Value Reference Range Interpretation [...] Infarction (to prevent recurrent infarct). THROMBOPLASTIN TIME [id number] 13:21:00* Test Item Value Reference Range Interpretation Comments THROMBOPLASTIN TIME PARTIAL (test code = PTT) 41.5 Seconds 25.0-39. 5 H Therapeutic Range: 50.4 - 88.3 Seconds Effective 09/09/2018 CBC W/AUTO [id number] 13:12:00* Test Item Value Reference Range Interpretation [...] REQUIRED (test code = MDIFF) NO RBC [id number] 13:12:00* Test Item Value Reference Range Interpretation Comments ANISOCYTOSIS (test code = ANISO) CBC W/AUTO [id number] 13:12:00* Test Item Value Reference Range Interpretation [...] REQUIRED (test code = MDIFF) NO RBC [id number] 13:12:00* Test Item Value Reference Range Interpretation Comments ANISOCYTOSIS (test code = ANISO) BASIC METABOLIC [id number] 04:29:00* Test Item Value Reference Range Interpretation [...] code = CA) 8.8 mg/dL 8.0-10.5 N [id number] 04:29:00* Test Item Value Reference Range Interpretation Comments PHOSPHOROUS (test code = PHOS) 3.3 MG/DL 2.5-4.9 N [id number] 04:29:00* Test Item Value Reference Range Interpretation Comments MAGNESIUM (test code = MAG) 1.90 mg/dL 1.8-2.4 N CBC W/AUTO [id number] 04:18:00* Test Item Value Reference Range Interpretation [...] (test code = MDIFF) NO CBC W/AUTO [id number] 10:47:00* Test Item Value Reference Range Interpretation [...] REQUIRED (test code = MDIFF) NO RBC [id number] 10:47:00* Test Item Value Reference Range Interpretation Comments HYPOCHROMIA (test code = HYPO) 2+ POIKILOCYTOSIS (test code = POIK) 1+ BASOPHILIC STIPPLING (test code = STP) 1+ ANISOCYTOSIS (test code = ANISO) 2+ MICROCYTOSIS (test code = MICR) 1+ OVALOCYTES (test code = OVAL) 1+ SCHISTOCYTES (test code = GINA) 1+ BASIC METABOLIC [id number] 08:28:00* Test Item Value Reference Range Interpretation [...] code = CA) 8.9 mg/dL 8.0-10.5 N [id number] 08:28:00* Test Item Value Reference Range Interpretation Comments PHOSPHOROUS (test code = PHOS) 3.6 MG/DL 2.5-4.9 N [id number] 08:28:00* Test Item Value Reference Range Interpretation Comments MAGNESIUM (test code = MAG) 2.00 mg/dL 1.8-2.4 N CBC W/AUTO [id number] 08:19:00* Test Item Value Reference Range Interpretation [...] REQUIRED (test code = MDIFF) NO RBC [id number] 08:19:00* Test Item Value Reference Range Interpretation Comments ANISOCYTOSIS (test code = ANISO) CBC W/AUTO [id number] 08:19:00* Test Item Value Reference Range Interpretation [...] REQUIRED (test code = MDIFF) NO RBC [id number] 08:19:00* Test Item Value Reference Range Interpretation Comments ANISOCYTOSIS (test code = ANISO) [id number] 09:46:00* Test Item Value Reference Range Interpretation Comments SODIUM (test code = NA) 133 mEq/L 134-147 L COMMENTS: Draw serum sodium levels q6hrs for the first 24 hours & q12hrs for theComment: next 24 hrs with initiation of Tolvaptan or for any dose change.CBC W/AUTO [id number] 09:25:00* Test Item Value Reference Range Interpretation [...] (test code = MDIFF) NO BASIC METABOLIC [id number] 08:13:00* Test Item Value Reference Range Interpretation [...] code = CA) 8.8 mg/dL 8.0-10.5 N [id number] 08:13:00* Test Item Value Reference Range Interpretation Comments PHOSPHOROUS (test code = PHOS) 3.3 MG/DL 2.5-4.9 N [id number] 08:13:00* Test Item Value Reference Range Interpretation Comments MAGNESIUM (test code = MAG) 2.00 mg/dL 1.8-2.4 N [id number] 22:37:00* Test Item Value Reference Range Interpretation Comments SODIUM (test code = NA) 130 mEq/L 134-147 L COMMENTS: Draw serum sodium levels q6hrs for the first 24 hours & q12hrs for theComment: next 24 hrs with initiation of Tolvaptan or for any dose change.[id number] 10:56:00* Test Item Value Reference Range Interpretation Comments SODIUM (test code = NA) 130 mEq/L 134-147 L BASIC METABOLIC [id number] 04:26:00* Test Item Value Reference Range Interpretation [...] code = CA) 8.8 mg/dL 8.0-10.5 N [id number] 04:26:00* Test Item Value Reference Range Interpretation Comments PHOSPHOROUS (test code = PHOS) 3.0 MG/DL 2.5-4.9 N [id number] 04:26:00* Test Item Value Reference Range Interpretation Comments MAGNESIUM (test code = MAG) 2.30 mg/dL 1.8-2.4 CBC W/AUTO [id number] 04:16:00* Test Item Value Reference Range Interpretation [...] DIFF REQUIRED (test code = MDIFF) NO [id number] 21:57:00* Test Item Value Reference Range Interpretation Comments SODIUM (test code = NA) 128 mEq/L 134-147 L COMMENTS: Draw serum sodium levels q6hrs for the first 24 hours & q12hrs for theComment: next 24 hrs with initiation of Tolvaptan or for any dose change.[id number] 15:24:00* Test Item Value Reference Range Interpretation Comments SODIUM (test code = NA) 128 mEq/L 134-147 L COMMENTS: Draw serum sodium levels q6hrs for the first 24 hours & q12hrs for theComment: next 24 hrs with initiation of Tolvaptan or for any dose change.BASIC METABOLIC [id number] 08:45:00* Test Item Value Reference Range Interpretation [...] code = CA) 9.4 mg/dL 8.0-10.5 N [id number] 08:45:00* Test Item Value Reference Range Interpretation Comments PHOSPHOROUS (test code = PHOS) 3.5 MG/DL 2.5-4.9 N [id number] 08:45:00* Test Item Value Reference Range Interpretation Comments MAGNESIUM (test code = MAG) 1.70 mg/dL 1.8-2.4 L CBC W/AUTO [id number] 07:56:00* Test Item Value Reference Range Interpretation [...] DIFF REQUIRED (test code = MDIFF) NO [id number] 00:47:00* Test Item Value Reference Range Interpretation Comments SODIUM (test code = NA) 128 mEq/L 134-147 L COMMENTS: Draw serum sodium levels q6hrs for the first 24 hours & q12hrs for theComment: next 24 hrs with initiation of Tolvaptan or for any dose change.[id number] 18:30:00* Test Item Value Reference Range Interpretation Comments SODIUM (test code = NA) 128 mEq/L 134-147 L COMMENTS: Draw serum sodium levels q6hrs for the first 24 hours & q12hrs for theComment: next 24 hrs with initiation of Tolvaptan or for any dose change.BASIC METABOLIC [id number] 08:21:00* Test Item Value Reference Range Interpretation [...] code = CA) 8.9 mg/dL 8.0-10.5 N [id number] 08:21:00* Test Item Value Reference Range Interpretation Comments PHOSPHOROUS (test code = PHOS) 3.0 MG/DL 2.5-4.9 N [id number] 08:21:00* Test Item Value Reference Range Interpretation Comments MAGNESIUM (test code = MAG) 1.60 mg/dL 1.8-2.4 L [id number] 00:30:00* Test Item Value Reference Range Interpretation Comments SODIUM (test code = NA) 141 mEq/L 134-147 N COMMENTS: Draw serum sodium levels q6hrs for the first 24 hours & q12hrs for theComment: next 24 hrs with initiation of Tolvaptan or for any dose change.[id number] 18:06:00* Test Item Value Reference Range Interpretation Comments SODIUM (test code = NA) 127 mEq/L 134-147 L COMMENTS: Draw serum sodium levels q6hrs for the first 24 hours & q12hrs for theComment: next 24 hrs with initiation of Tolvaptan or for any dose change.[id number] 11:58:00* Test Item Value Reference Range Interpretation Comments SODIUM (test code = NA) 127 mEq/L 134-147 L COMMENTS: Draw serum sodium levels q6hrs for the first 24 hours & q12hrs for theComment: next 24 hrs with initiation of Tolvaptan or for any dose change.CBC W/AUTO [id number] 10:00:00* Test Item Value Reference Range Interpretation [...] REQUIRED (test code = MDIFF) NO RBC [id number] 10:00:00* Test Item Value Reference Range Interpretation [...] (test code = GINA) 1+ CBC W/AUTO [id number] 07:35:00* Test Item Value Reference Range Interpretation [...] REQUIRED (test code = MDIFF) NO RBC [id number] 07:35:00* Test Item Value Reference Range Interpretation Comments ANISOCYTOSIS (test code = ANISO) CBC W/AUTO [id number] 07:35:00* Test Item Value Reference Range Interpretation [...] REQUIRED (test code = MDIFF) NO RBC [id number] 07:35:00* Test Item Value Reference Range Interpretation Comments ANISOCYTOSIS (test code = ANISO) BASIC METABOLIC [id number] 07:31:00* Test Item Value Reference Range Interpretation [...] code = CA) 8.7 mg/dL 8.0-10.5 N [id number] 07:31:00* Test Item Value Reference Range Interpretation Comments PHOSPHOROUS (test code = PHOS) 3.3 MG/DL 2.5-4.9 N [id number] 07:31:00* Test Item Value Reference Range Interpretation Comments MAGNESIUM (test code = MAG) 1.70 mg/dL 1.8-2.4 L BASIC METABOLIC [id number] 19:52:00* Test Item Value Reference Range Interpretation [...] CA) 8.5 mg/dL 8.0-10.5 N CBC W/AUTO [id number] 08:19:00* Test Item Value Reference Range Interpretation [...] (test code = MDIFF) NO BASIC METABOLIC [id number] 08:12:00* Test Item Value Reference Range Interpretation [...] code = CA) 8.5 mg/dL 8.0-10.5 N [id number] 08:12:00* Test Item Value Reference Range Interpretation Comments PHOSPHOROUS (test code = PHOS) 3.1 MG/DL 2.5-4.9 N [id number] 08:12:00* Test Item Value Reference Range Interpretation Comments MAGNESIUM (test code = MAG) 1.70 mg/dL 1.8-2.4 L - US ABDOMEN [id number] 08:23:00 Name: KELLY GROVES [facility] : 1945 Age/S: 73 / F [address] [place] [address] Unit #: [id number] Loc: [place] [address] Phys: Carlton Ramos MD Acct: [id number] Dis Date: Status: ADM IN PHONE #: [phone] Exam Date: 09/23/2019815 FAX #: [phone] Reason: o.5 cm hepatic lesion on [address] scan EXAMS: CPT CODE: [id number] US ABDOMEN LTD 29296 EXAM: US ABDOMEN LIMITED DATE: 09/23/2019 6:22 [...] not well seen on the ultrasound. SL: [id number] PAGE 1 Signed Report (CONTINUED) Name: KELLY GROVES [facility] : 1945 Age/S: 73 / F [address] [place] [address] Unit #: [id number] Loc: [place] [address] Phys: Carlton Ramos MD Acct: [id number] Dis Date: Status: ADM IN PHONE #: [phone] Exam Date: 09/23/2019815 FAX #: [phone] Reason: o.5 cm hepatic lesion on CT scan EXAMS: CPT CODE: [id number] ABDOMEN LTD 17715 <Continued> at 0823 Reported and signed by: Luis Melendrez D.O. CC: Carlton Ramos MD; Candice Mullen MD Technologist: Amanda Saucedo Trnscb Date/Time: 09/23/2019 (822) John.MP37 Orig Print D/T: S: 09/23/2019 (6515) Probe: PAGE 2 Signed Report BASIC METABOLIC [...] mg/dL 8.0-10.5 N - CT ABD PELVIS [id number] 18:37:00 Name: KELLY GROVES [facility] : 1945 Age/S: 73 / F [address] [place] [address] Unit #: [id number] Loc: [place] [address] Phys: Carlton Ramos MD Acct: [id number] Dis Date: Status: ADM IN PHONE #: [phone] Exam Date: 09/22/20191801 FAX #: [phone] Reason: history of pancreatic cancer, peristent hyponat EXAMS: CPT CODE: [id number] CT ABD PELVIS W/CONT 33169 STUDY: - CT ABD PELVIS W/CONT 09/22/2019 11:06 AM Ordering Physician: Carlton Ramos MD Patient Name: KELLY GROVES MR: [id number] : 1945; Age: 73 years y/o Female [...] Signed Report (CONTINUED) N fawn: KELLY GROVES [facility] : 0 1945 Age/S: 73 / F [address] [place], [place] [address] Unit #: [id number] Loc: [place] [address] Phys: Shai Ramos MD Acct: [id number] Dis D ate: Status: ADM IN PHONE #: [phone] Exam Date: 09/22/2019 180 FAX #: [phone] Reason: history of pancreatic cancer, peristent hyponat EXAMS: CPT CODE: [id number] CT ABD PELVIS W/ CONT 73567 <Continued> ABDOMINAL ORGANS: Liver: 0.5 cm hypodense [...] 2 Signed Report (CONTINUED) Name: KELLY GROVES [facility] Arcelia Lundberg : 1945 Age/S: 73 / F [address] [facility] Unit #: [id number] Loc: [place] [address] Phys: Carlton Ramos MD Acct: [id number] Dis Date: Status: ADM IN PHONE #: [phone] Exam Date: 09/22/2019 180 FAX #: [phone] Reason: history of pancreatic cancer, per istent hyponat EXAMS: CPT CODE : [id number] CT ABD PELVIS W/CONT 81828 <Continued> SL: AP-H at 1837 Reported and signed by: Ivan Patel M.D. CC: Carlton Ramos MD; Candice Mullen MD Technologist:Vanessa Llanes, RT(R)(CT) CTDI: DLP: Trnscb Date/Time: 09/22/2019 (1836) t.ANDREAR.AP24 Orig Print D/T: S: 09/22/2019 (1839) PAGE 3 Signed Report CBC W/AUTO [id number] 08:51:00* Test Item Value Reference Range Interpretation [...] (test code = MDIFF) NO BASIC METABOLIC [id number] 08:26:00* Test Item Value Reference Range Interpretation [...] code = CA) 8.4 mg/dL 8.0-10.5 N [id number] 08:26:00* Test Item Value Reference Range Interpretation Comments PHOSPHOROUS (test code = PHOS) 3.1 MG/DL 2.5-4.9 N [id number] 08:26:00* Test Item Value Reference Range Interpretation Comments MAGNESIUM (test code = MAG) 1.70 mg/dL 1.8-2.4 L [id number] 23:17:00* Test Item Value Reference Range Interpretation Comments SODIUM (test code = NA) 126 mEq/L 134-147 L COMMENTS: Draw serum sodium levels q6hrs for the first 24 hours & q12hrs for theComment: next 24 hrs with initiation of Tolvaptan or for any dose change.[id number] 10:00:00* Test Item Value Reference Range Interpretation Comments SODIUM (test code = NA) 130 mEq/L 134-147 L COMMENTS: Draw serum sodium levels q6hrs for the first 24 hours & q12hrs for theComment: next 24 hrs with initiation of Tolvaptan or for any dose change.BASIC METABOLIC [id number] 04:48:00* Test Item Value Reference Range Interpretation [...] code = CA) 8.6 mg/dL 8.0-10.5 N [id number] 04:48:00* Test Item Value Reference Range Interpretation Comments PHOSPHOROUS (test code = PHOS) 3.6 MG/DL 2.5-4.9 N [id number] 04:48:00* Test Item Value Reference Range Interpretation Comments MAGNESIUM (test code = MAG) 1.80 mg/dL 1.8-2.4 N CBC W/AUTO [id number] 04:31:00* Test Item Value Reference Range Interpretation [...] DIFF REQUIRED (test code = MDIFF) NO [id number] 22:44:00* Test Item Value Reference Range Interpretation Comments SODIUM (test code = NA) 130 mEq/L 134-147 L COMMENTS: Draw serum sodium levels q6hrs for the first 24 hours & q12hrs for theComment: next 24 hrs with initiation of Tolvaptan or for any dose change.[id number] 16:24:00* Test Item Value Reference Range Interpretation Comments SODIUM (test code = NA) 129 mEq/L 134-147 L COMMENTS: Draw serum sodium levels q6hrs for the first 24 hours & q12hrs for theComment: next 24 hrs with initiation of Tolvaptan or for any dose change.- CT NECK W/O [id number] 15:53:00 Name: KELLY GROVES [facility] : 1945 Age/S: 73 / F [address] [place] [address] Unit #: [id number] Loc: [place] [address] Phys: Carlton Ramos MD Acct: [id number] Dis Date: Status: ADM IN PHONE #: [phone] Exam Date: 09/20/2019 4484 FAX #: [phone] Reason: Hyponatremia/rule out malignancy EXAMS: CPT CODE: [id number] CT NECK W/O CONTRAST [address]75[address] CT neck without contrast: Multiplanar helical imaging [...] lytic changes IMPRESSION: No acute finding SL: [id number] at 1553 Reported and signed by: Nikita Guerin M.D. CC: Carlton Ramos MD; Candice Mullen MD Technologist:Salma Bowen RT(R)(CT) CTDI: DLP: Trnscb D ate/Time: 09/20/2019 (1553) t.SDR.ETG Orig Print D/T: S: 09/20/2019 (3246) PAGE 1 Signed Report - CT CHEST W/O [id number] 15:38:00 Name: KELLY GROVES [facility] : 1945 Age/S: 73 / F [address] [place] [address] Unit #: [id number] Loc: [place] [address] Phys: Carlton Ramos MD Acct: [id number] Dis Date: Status: ADM IN PHONE #: [phone] Exam Date: 09/20/20191455 FAX #: [phone] Reason: Hyponatremia/rule out malignancy EXAMS: CPT CODE: [id number] CT CHEST W/O CONTRAST [address] without contrast: Multiplanar helical imaging [...] spine with scoliosis area 3. Cholecystectomy SL: [id number] at 1538 Rep orted and signed by: Nikita Guerin M.D. PAGE 1 Signed Report (CONTINUED) Name: KELLY GROVES [facility] : 1945 Age/S: 73 / F [address] [facility] Unit #: [id number] Loc: [place] [address] Phys: Carlton Ramos MD Acct: [id number] Dis Date: Status: ADM IN PHONE #: [phone] Exam Date: 09/20/20191455 FAX #: [phone] Reason: Hyponatremia/rule out ma lignancy EXAMS: CPT CODE: [id number] CT CHEST W/O CONTRAST 80794 <Continued> CC: Carlton Ramos MD; Candice Mullen MD Technologist:Salma Bowen, RT(R)(CT) CTDI: DLP: Trnscb Date/Time: 09/20/2019 (6528) tGILBERTO Orig Print D/T: S: 09/20/2019 (5574) PAGE 2 Signed Report BASIC METABOLIC PANEL [...] code = CA) 8.8 mg/dL 8.0-10.5 N [id number] 08:50:00* Test Item Value Reference Range Interpretation Comments PHOSPHOROUS (test code = PHOS) 3.5 MG/DL 2.5-4.9 N [id number] 08:50:00* Test Item Value Reference Range Interpretation Comments MAGNESIUM (test code = MAG) 1.80 mg/dL 1.8-2.4 N BASIC METABOLIC [id number] 09:02:00* Test Item Value Reference Range Interpretation [...] code = CA) 8.8 mg/dL 8.0-10.5 N [id number] 09:02:00* Test Item Value Reference Range Interpretation Comments PHOSPHOROUS (test code = PHOS) 3.2 MG/DL 2.5-4.9 N [id number] 09:02:00* Test Item Value Reference Range Interpretation Comments MAGNESIUM (test code = MAG) 1.90 mg/dL 1.8-2.4 N CBC W/AUTO [id number] 08:44:00* Test Item Value Reference Range Interpretation [...] REQUIRED (test code = MDIFF) NO RBC [id number] 08:44:00* Test Item Value Reference Range Interpretation Comments POLYCHROMASIA (test code = POLC) SLIGHT HYPOCHROMIA (test code = HYPO) 3+ ANISOCYTOSIS (test code = ANISO) 2+ MICROCYTOSIS (test code = MICR) 2+ CBC W/AUTO [id number] 07:49:00* Test Item Value Reference Range Interpretation [...] REQUIRED (test code = MDIFF) NO RBC [id number] 07:49:00* Test Item Value Reference Range Interpretation Comments ANISOCYTOSIS (test code = ANISO) CBC W/AUTO [id number] 07:49:00* Test Item Value Reference Range Interpretation [...] REQUIRED (test code = MDIFF) NO RBC [id number] 07:49:00* Test Item Value Reference Range Interpretation Comments ANISOCYTOSIS (test code = ANISO) [id number] 12:05:00* Test Item Value Reference Range Interpretation Comments SODIUM (test code = NA) 133 mEq/L 134-147 L BASIC METABOLIC [id number] 03:29:00* Test Item Value Reference Range Interpretation [...] code = CA) 8.6 mg/dL 8.0-10.5 N [id number] 03:29:00* Test Item Value Reference Range Interpretation Comments PHOSPHOROUS (test code = PHOS) 2.8 MG/DL 2.5-4.9 N [id number] 03:29:00* Test Item Value Reference Range Interpretation Comments MAGNESIUM (test code = MAG) 2.10 mg/dL 1.8-2.4 CBC W/AUTO [id number] 03:13:00* Test Item Value Reference Range Interpretation [...] DIFF REQUIRED (test code = MDIFF) NO [id number] 19:02:00* Test Item Value Reference Range Interpretation Comments SODIUM (test code = NA) 132 mEq/L 134-147 L COMMENTS: Draw serum sodium levels q6hrs for the first 24 hours & q12hrs for theComment: next 24 hrs with initiation of Tolvaptan or for any dose change.[id number] 13:12:00* Test Item Value Reference Range Interpretation Comments SODIUM (test code = NA) 128 mEq/L 134-147 L COMMENTS: Draw serum sodium levels q6hrs for the first 24 hours & q12hrs for theComment: next 24 hrs with initiation of Tolvaptan or for any dose change.UR OSMOLALITY [id number] 11:08:00* Test Item Value Reference Range Interpretation Comments UR OSMOLALITY RANDOM (test code = OSMOU) 461 MOS/KG 300-1000 N URINALYSIS [id number] 11:08:00* Test Item Value Reference Range Interpretation [...] MUCU) TRACE /LPF NONE SEEN UR SODIUM [id number] 11:08:00* Test Item Value Reference Range Interpretation [...] into the clinical context forinterpretation. UR PROTEIN [id number] 11:08:00* Test Item Value Reference Range Interpretation Comments UR PROTEIN RANDOM (test code = PROTU) 19 mg/dL Note: Change in UNITS of MEASUREMENT. The Reference Range and Method Performance specificationshave not been established for this fluid. The test resultshould be correlated into the clinical context forinterpretation. UR CREATININE [id number] 11:08:00* Test Item Value Reference Range Interpretation Comments UR CREATININE RANDOM (test code = CREATU) 67.0 mg/dL The Reference Range and Method Performance specificationshave not been established for this fluid. The test resultshould be correlated into the clinical context forinterpretation. UR OSMOLALITY [id number] 11:08:00* Test Item Value Reference Range Interpretation Comments UR OSMOLALITY RANDOM (test code = OSMOU) 461 MOS/KG 300-1000 URINALYSIS [id number] 08:26:00* Test Item Value Reference Range Interpretation [...] MUCU) TRACE /LPF NONE SEEN UR SODIUM [id number] 08:26:00* Test Item Value Reference Range Interpretation [...] into the clinical context forinterpretation. UR PROTEIN [id number] 08:26:00* Test Item Value Reference Range Interpretation Comments UR PROTEIN RANDOM (test code = PROTU) 19 mg/dL Note: Change in UNITS of MEASUREMENT. The Reference Range and Method Performance specificationshave not been established for this fluid. The test resultshould be correlated into the clinical context forinterpretation. UR CREATININE [id number] 08:26:00* Test Item Value Reference Range Interpretation Comments UR CREATININE RANDOM (test code = CREATU) 67.0 mg/dL The Reference Range and Method Performance specificationshave not been established for this fluid. The test resultshould be correlated into the clinical context forinterpretation. UR OSMOLALITY [id number] 08:26:00* Test Item Value Reference Range Interpretation Comments UR OSMOLALITY RANDOM (test code = OSMOU) URINALYSIS [id number] 07:34:00* Test Item Value Reference Range Interpretation [...] MUCU) TRACE /LPF NONE SEEN UR SODIUM [id number] 07:34:00* Test Item Value Reference Range Interpretation Comments UR SODIUM RANDOM (test code = TREVOR) MEQ/L UR POTASSIUM RANDOM (test code = KU) MEQ/L UR PROTEIN [id number] 07:34:00* Test Item Value Reference Range Interpretation Comments UR PROTEIN RANDOM (test code = PROTU) mg/dL UR CREATININE [id number] 07:34:00* Test Item Value Reference Range Interpretation Comments UR CREATININE RANDOM (test code = CREATU) mg/dL UR OSMOLALITY [id number] 07:34:00* Test Item Value Reference Range Interpretation Comments UR OSMOLALITY RANDOM (test code = OSMOU) BASIC METABOLIC [id number] 03:44:00* Test Item Value Reference Range Interpretation [...] code = CA) 8.2 mg/dL 8.0-10.5 N [id number] 03:44:00* Test Item Value Reference Range Interpretation Comments PHOSPHOROUS (test code = PHOS) 3.2 MG/DL 2.5-4.9 N [id number] 03:44:00* Test Item Value Reference Range Interpretation Comments MAGNESIUM (test code = MAG) 1.60 mg/dL 1.8-2.4 L CBC W/AUTO [id number] 03:33:00* Test Item Value Reference Range Interpretation [...] DIFF REQUIRED (test code = MDIFF) NO [id number] 21:18:00* Test Item Value Reference Range Interpretation Comments SODIUM (test code = NA) 128 mEq/L 134-147 L [id number] 15:23:00* Test Item Value Reference Range Interpretation Comments SODIUM (test code = NA) 124 mEq/L 134-147 LL COMMENTS: Draw serum sodium levels q6hrs for the first 24 hours & q12hrs for theComment: next 24 hrs with initiation of Tolvaptan or for any dose change.PROTHROMBIN [id number] 07:44:00* Test Item Value Reference Range Interpretation [...] Infarction (to prevent recurrent infarct). BASIC METABOLIC [id number] 06:33:00* Test Item Value Reference Range Interpretation [...] COMMENTS: To be done morning of Heart [id number] 06:33:00* Test Item Value Reference Range Interpretation Comments PHOSPHOROUS (test code = PHOS) 3.6 MG/DL 2.5-4.9 N COMMENTS: To be done morning of Heart [id number] 06:33:00* Test Item Value Reference Range Interpretation Comments MAGNESIUM (test code = MAG) 1.80 mg/dL 1.8-2.4 N COMMENTS: To be done morning of Heart CathTHROMBOPLASTIN TIME [id number] 06:23:00* Test Item Value Reference Range Interpretation Comments THROMBOPLASTIN TIME PARTIAL (test code = PTT) 37.2 Seconds 25.0-39. 5 N Therapeutic Range: 50.4 - 88.3 Seconds Effective 09/09/2018 CBC W/AUTO [id number] 06:13:00* Test Item Value Reference Range Interpretation [...] To be done morning of Heart CathIMMUNOELECTROPHORESIS [id number] 13:08:00* Test Item Value Reference Range Interpretation Comments IMMUNOGLOBULIN A (test code = FAM) 146 mg/dL 64-422 IMMUNOGLOBULIN G (test code = IMMG) 1527 mg/dL 586-1602 Please note reference interval change IMMUNOGLOBULIN M (test code = IMMM) 188 mg/dL 26-217 Performed At: [facility] [id number] [facility] [address] [place], [place] [id number] CN MD Ph:[phone] At: [facility] [address] [id number] Kyle L MD Ph:[phone] IMMUNOFIXATION SERUM (test code = IMMFIXS) () The immunofixation pattern appears unremarkable. Evidenceof monoclonal protein is not apparent. TOTAL IRON BINDING [id number] 13:08:00* Test Item Value Reference Range Interpretation Comments SERUM IRON (test code = IRON) 60 mcg/dL 35-150 N TOTAL IRON BINDING CAPACITY (test code = TIBC) 286 mcg/dL 260-445 N UIBC (test code = UIBC) 226 mcg/dL IRON SATURATION (test code = FESAT) 21.0 % 14-34 N VITAMIN [id number] 13:08:00* Test Item Value Reference Range Interpretation Comments VITAMIN B12 (test code = VITB12) 511 pg/mL 193-986 N [id number] 13:08:00* Test Item Value Reference Range Interpretation Comments FERRITIN (test code = ARBEN) 53.4 ng/mL 11.0-306.8 N BASIC METABOLIC [id number] 06:59:00* Test Item Value Reference Range Interpretation [...] COMMENTS: To be done morning of Heart [id number] 06:59:00* Test Item Value Reference Range Interpretation Comments PHOSPHOROUS (test code = PHOS) 3.6 MG/DL 2.5-4.9 N COMMENTS: To be done morning of Heart [id number] 06:59:00* Test Item Value Reference Range Interpretation Comments MAGNESIUM (test code = MAG) 1.80 mg/dL 1.8-2.4 N COMMENTS: To be done morning of Heart CathPROTHROMBIN [id number] 06:39:00* Test Item Value Reference Range Interpretation [...] Infarction (to prevent recurrent infarct). THROMBOPLASTIN TIME [id number] 06:39:00* Test Item Value Reference Range Interpretation Comments THROMBOPLASTIN TIME PARTIAL (test code = PTT) 39.8 Seconds 25.0-39. 5 H Therapeutic Range: 50.4 - 88.3 Seconds Effective 09/09/2018 CBC W/AUTO [id number] 06:30:00* Test Item Value Reference Range Interpretation [...] NO COMMENTS: To be done morning of [facility] Coronavirus [id number] 03:43:00* Test Item Value Reference Range Interpretation Comments Novel Coronavirus 2019 Inhouse (test code = [id number]) Negative Negative Positive results are indicative of the presence pfDNSV-PjZ-9 RNA, clinical correlation with patient historyand other [...] for the identification of SARS-CoV-2 RNA usingthe [employer] M2000 System under the FDA Emergency UseAuthorization. The testing is performed by personneltrained in the procedures for the [employer] M2000 moleculardiagnostic SARS-CoV-2 assay in vitro. Testing Criteria: Preprocedure ScreeningCBC W/AUTO [id number] 11:19:00* Test Item Value Reference Range Interpretation [...] REQUIRED (test code = MDIFF) NO RBC [id number] 11:19:00* Test Item Value Reference Range Interpretation [...] (test code = GINA) FEW CBC W/AUTO [id number] 08:04:00* Test Item Value Reference Range Interpretation [...] REQUIRED (test code = MDIFF) NO RBC [id number] 08:04:00* Test Item Value Reference Range Interpretation Comments ANISOCYTOSIS (test code = ANISO) CBC W/AUTO [id number] 08:04:00* Test Item Value Reference Range Interpretation [...] REQUIRED (test code = MDIFF) NO RBC [id number] 08:04:00* Test Item Value Reference Range Interpretation Comments ANISOCYTOSIS (test code = ANISO) BASIC METABOLIC [id number] 07:50:00* Test Item Value Reference Range Interpretation [...] code = CA) 8.8 mg/dL 8.0-10.5 N [id number] 07:50:00* Test Item Value Reference Range Interpretation Comments PHOSPHOROUS (test code = PHOS) 4.2 MG/DL 2.5-4.9 N [id number] 07:50:00* Test Item Value Reference Range Interpretation Comments MAGNESIUM (test code = MAG) 2.10 mg/dL 1.8-2.4 BASIC METABOLIC [id number] 17:15:00* Test Item Value Reference Range Interpretation [...] 8.9 mg/dL 8.0-10.5 N - US RETROPERITONEAL [id number] 15:19:00 Name: KELLY GROVES [facility] : 1945 Age/S: 73 / F [address] [place] [address] Unit #: [id number] Loc: [place] [address] Phys: Carlton Ramos MD Acct: [id number] Dis Date: Status: ADM IN PHONE #: [phone] Exam Date: 09/13/2019 1404 FAX #: [phone] Reason: uncontrolled HTN/CKD EXAMS: CPT CODE: [id number] US RETROPERITONEAL COM 09641 Clinical Indication: Uncontrolled hypertension, chronic renal disease. [...] 1 Signed Report (CONTINUED) Name: KELLY GROVES [place] : 1945 Age/S: 73 / F [address] [place] [address] Unit #: [id number] Loc: [place] [address] Phys: Geoff Ramos MD Acct: [id number] Dis Date: Status: ADM IN PHONE #: Exam Date: 09/13/2019 140 FAX #: Reason: uncontrolled HTN/CKD EXAMS: CPT CODE: [id number] RETROPERITON [facility] [address] <Continued> at 1519 Reported and signed by: Jonathan hDillon M.D. CC: Carlton Ramos MD; Candice Mullen MD Technologist: Baron Rivas RDMS(AB) Trnscb Date/Time: 09/13/2019 (1518) tNALINITDO Orig Print D/T: S: 09/13/2019 (152) Probe: PAGE 2 Signed Report - DUP AB/PEL/SC/[id number] 15:19:00 [facility] 1945 Age/S: 73 / F [address] [place] [address] Unit #: [id number] Loc: [place] [address] Phys: Carlton Ramos MD Acct: [id number] Dis Date: Status: ADM IN PHONE #: [phone] Exam Date: 09/13/2019 140 FAX #: [phone] Reason: uncontrolled HTN/CKD EXAMS: CPT CODE: [id number] DUP AB/PEL/SC/LTD 71752 Clinical Indication: Uncontrolled hypertension, chronic renal disease. [...] 1 Signed Report (CONTINUED) Name: KELLY GROVES [facility] : 1945 Age/S: 73 / F [address] [place] [address] Blvd Unit #: [id number] Loc: [place] [address] Phys: Geoff Ramos MD Acct: [id number] Dis Date: Status: ADM IN PHONE #: Exam Date: 09/13/2019 1404 FAX #: Reason: uncontrolled HTN/CKD EXAMS: CPT CODE: [id number] DUP AB/PEL/SC/[place] [address] <Continued> at 1519 Reported and signed by: Jonathan Dhillon M.D. CC: Carlton Ramos MD; Candice Mullen MD Technologist: Baron Rivas RDMS() Trnscb Date/Time: 09/13/2019 (1518) BambiO Orig Print D/T: S: 09/13/2019 (1522) Probe: PAGE 2 Signed Report BASIC METABOLIC [id number] 08:36:00* Test Item Value Reference Range Interpretation [...] CA) 9.4 mg/dL 8.0-10.5 N HEPATIC FUNCTION [id number] 08:36:00* Test Item Value Reference Range Interpretation [...] code = ALKP) 47 IUnit/L 20-125 N [id number] 08:36:00* Test Item Value Reference Range Interpretation Comments PHOSPHOROUS (test code = PHOS) 4.1 MG/DL 2.5-4.9 N [id number] 08:36:00* Test Item Value Reference Range Interpretation Comments MAGNESIUM (test code = MAG) 1.60 mg/dL 1.8-2.4 L CBC W/AUTO [id number] 07:31:00* Test Item Value Reference Range Interpretation [...] REQUIRED (test code = MDIFF) NO IMMUNOELECTROPHORESIS [id number] 14:08:00* Test Item Value Reference Range Interpretation Comments IMMUNOGLOBULIN A (test code = FAM) IMMUNOGLOBULIN G (test code = IMMG) IMMUNOGLOBULIN M (test code = IMMM) IMMUNOFIXATION SERUM (test code = IMMFIXS) TOTAL IRON BINDING [id number] 14:08:00* Test Item Value Reference Range Interpretation Comments SERUM IRON (test code = IRON) 60 mcg/dL 35-150 N TOTAL IRON BINDING CAPACITY (test code = TIBC) 286 mcg/dL 260-445 N UIBC (test code = UIBC) 226 mcg/dL IRON SATURATION (test code = FESAT) 21.0 % 14-34 N VITAMIN [id number] 14:08:00* Test Item Value Reference Range Interpretation Comments VITAMIN B12 (test code = VITB12) 511 pg/mL 193-986 N [id number] 14:08:00* Test Item Value Reference Range Interpretation Comments FERRITIN (test code = ARBEN) 53.4 ng/mL 11.0-306.8 N [id number] 04:17:00* Test Item Value Reference Range Interpretation [...] = LDL) 84 mg/dL 0-100 N <100 [id number] NEAR OPTIMAL/ABOVE [id number] ZENLLINARJ309-957 HIGH>AR=690 VERY HIGH*Guidelines provided by the National Cholesterol EducationProgram Adult Treatment Panel III NESSTJVT-[id number] 01:00:00* Test Item Value Reference Range Interpretation [...] V 2019-09-11 21:45:00 FAX: Yakov Santos MD [phone] [place]: St: REG Name: KELLY ABDI [facility] : [birth year] Age/S: 73/F [address] [place] [address] Blvd Unit #: [id number] Loc: [address] [address] Phys: Yakov Santos MD Acct: [id number] Dis Date: Status: REG ER PHONE #: [phone] Exam Date: 09/11/20192141 FAX #: [phone] Reason: Chest Pain EXAMS: CPT CODE: [id number] XR CHEST 1 V 57703 Chest single view 09/11/2019 HISTORY: Chest pain. [...] erstitial edema. 3. Stable mild cardiomegaly. SL: TRICIA Clifford at 2144 Re ported and signed by: Moses Salguero M.D. CC: Yakov church MD Technologist: Mandeep Mirza, RT(R); Marylin Mckinney RT(R) Trnscrd Date/Time/By: 09/11/2019 (2144) : By: [email or web address] Orig Print D/T: S: 09/11/2019 (2147) PAGE 1 Signed Report BASIC METABOLIC [id number] 21:30:00* Test Item Value Reference Range Interpretation [...] CA) 8.6 mg/dL 8.0-10.5 N BASIC METABOLIC [id number] 21:28:00* Test Item Value Reference Range Interpretation [...] CA) 8.6 mg/dL 8.0-10.5 N CBC W/AUTO [id number] 21:19:00* Test Item Value Reference Range Interpretation [...] DIFF REQUIRED (test code = MDIFF) NO [id number] 12:31:00* Test Item Value Reference Range Interpretation Comments GLUBED (test code = GLUBED) 111 MG/DL 70-110 H Performed by certified singeing torch operator at [facility] [id number] 11:06:00* Test Item Value Reference Range Interpretation Comments GLUBED (test code = GLUBED) 119 MG/DL 70-110 H Performed by certified singeing torch operator at [facility] BASIC METABOLIC [id number] 07:18:00* Test Item Value Reference Range Interpretation [...] 9.1 mg/dL 8.0-10.5 N TOTAL IRON BINDING [id number] 07:18:00* Test Item Value Reference Range Interpretation Comments SERUM IRON (test code = IRON) 46 mcg/dL 35-150 N TOTAL IRON BINDING CAPACITY (test code = TIBC) 293 mcg/dL 260-445 N UIBC (test code = UIBC) 247 mcg/dL IRON SATURATION (test code = FESAT) 15.7 % 14-34 N VITAMIN [id number] 07:18:00* Test Item Value Reference Range Interpretation Comments VITAMIN B12 (test code = VITB12) 282 pg/mL 193-986 N FOLIC [id number] 07:18:00* Test Item Value Reference Range Interpretation Comments FOLIC ACID (test code = FOL) 10.2 ng/mL 3.1-17.5 N [id number] 07:18:00* Test Item Value Reference Range Interpretation Comments FERRITIN (test code = ARBEN) 31.7 ng/mL 11.0-306.8 N CBC W/AUTO [id number] 05:56:00* Test Item Value Reference Range Interpretation [...] (test code = MDIFF) NO BASIC METABOLIC [id number] 08:18:00* Test Item Value Reference Range Interpretation [...] CA) 8.7 mg/dL 8.0-10.5 N CBC W/AUTO [id number] 07:19:00* Test Item Value Reference Range Interpretation [...] (test code = MDIFF) NO BASIC METABOLIC [id number] 07:55:00* Test Item Value Reference Range Interpretation [...] CA) 8.4 mg/dL 8.0-10.5 N CBC W/AUTO [id number] 07:27:00* Test Item Value Reference Range Interpretation [...] DIFF REQUIRED (test code = MDIFF) NO [id number] 07:15:00* Test Item Value Reference Range Interpretation [...] 3 troponins total (including troponin done in ED)[id number] 05:51:00* Test Item Value Reference Range Interpretation [...] total (including troponin done in ED)B-TYPE NATRIURETIC [id number] 01:01:00* Test Item Value Reference Range Interpretation Comments B-TYPE NATRIURETIC PEPTIDE (test code = BNP) 466.5 PG/ML 0-100 H CBC W/AUTO [id number] 00:59:00* Test Item Value Reference Range Interpretation [...] REQUIRED (test code = MDIFF) NO RBC [id number] 00:59:00* Test Item Value Reference Range Interpretation Comments POLYCHROMASIA (test code = POLC) SLIGHT HYPOCHROMIA (test code = HYPO) 1+ POIKILOCYTOSIS (test code = POIK) 2+ ANISOCYTOSIS (test code = ANISO) 2+ MICROCYTOSIS (test code = MICR) 2+ TARGET CELLS (test code = TGT) FEW ELLIPTOCYTES (test code = ELL) 1+ BASIC METABOLIC [id number] 00:56:00* Test Item Value Reference Range Interpretation [...] CA) 8.8 mg/dL 8.0-10.5 N HEPATIC FUNCTION [id number] 00:56:00* Test Item Value Reference Range Interpretation [...] code = ALKP) 64 IUnit/L 20-125 N [id number] 00:56:00* Test Item Value Reference Range Interpretation Comments LIPASE (test code = LIP) 196 IUnit/L 73-393 N TSH REFLEX TO [id number] 00:56:00* Test Item Value Reference Range Interpretation Comments TSH REFLEX TO FT4 (test code = TSHREFLEX) 4.37 IU/mL 0.42-5.47 N [id number] 00:56:00* Test Item Value Reference Range Interpretation Comments TROPONIN-I (test code = TROPI) < 0.015 ng/mL 0.000-0.045 N Negative: <= 0.045 Positive: >= 0.046 Correlation with serial results, other cardiac markers andclinical findings is necessary to determine the clinicalsignificance of this result. Results using different methodologies should not be comparedto one another as quantitative results may vary by method. BASIC METABOLIC [id number] 00:50:00* Test Item Value Reference Range Interpretation [...] CA) 8.8 mg/dL 8.0-10.5 N HEPATIC FUNCTION [id number] 00:50:00* Test Item Value Reference Range Interpretation [...] code = ALKP) 64 IUnit/L 20-125 N [id number] 00:50:00* Test Item Value Reference Range Interpretation Comments LIPASE (test code = LIP) 196 IUnit/L 73-393 N TSH REFLEX TO [id number] 00:50:00* Test Item Value Reference Range Interpretation Comments TSH REFLEX TO FT4 (test code = TSHREFLEX) IU/mL 0.42-5.47 [id number] 00:50:00* Test Item Value Reference Range Interpretation Comments TROPONIN-I (test code = TROPI) < 0.015 ng/mL 0.000-0.045 N Negative: <= 0.045 Positive: >= 0.046 Correlation with serial results, other cardiac markers andclinical findings is necessary to determine the clinicalsignificance of this result. Results using different methodologies should not be comparedto one another as quantitative results may vary by method. PROTHROMBIN [id number] 00:43:00* Test Item Value Reference Range Interpretation [...] Infarction (to prevent recurrent infarct). THROMBOPLASTIN TIME [id number] 00:43:00* Test Item Value Reference Range Interpretation Comments THROMBOPLASTIN TIME PARTIAL (test code = PTT) 38.8 Seconds 25.0-39. 5 N Therapeutic Range: 50.4 - 88.3 Seconds Effective 09/09/2018 CBC W/AUTO [id number] 00:33:00* Test Item Value Reference Range Interpretation [...] REQUIRED (test code = MDIFF) NO RBC [id number] 00:33:00* Test Item Value Reference Range Interpretation Comments ANISOCYTOSIS (test code = ANISO) CBC W/AUTO [id number] 00:33:00* Test Item Value Reference Range Interpretation [...] REQUIRED (test code = MDIFF) NO RBC [id number] 00:33:00* Test Item Value Reference Range Interpretation Comments ANISOCYTOSIS (test code = ANISO) - XR CHEST 1 [id number] 23:57:00 FAX: Gulshan Riddle MD [phone] [place]: St: REG Name: Uyen LEONEKELLY WATKINS [facility] : [birth year] Age/S: 73/F [address] [place] [address] Unit #: [id number] Loc: [address] [address] Phys: Gulshan Agosto MD Acct: [id number] Dis Date: Status: REG ER PHONE #: [phone] Exam Date: 08/23/2019 6259 FAX #: [phone] Reason: Chest Pain EXAMS: CPT CODE: [id number] XR CHEST 1 V 27176 Chest, single view dated 08/23/2019. HISTORY: Chest [...] M.D. CC: Gulshan Agosto MD Technologist: Diandra Owen, RT(R) Trnscrd Date/Time/By: 08/23/2019 (4468) : By: AgustínM Orig Print D/T: S: 08/24/2019 (0000) PAGE [...] CA) 9.2 mg/dL 8.0-10.5 N CBC W/AUTO [id number] 07:47:00* Test Item Value Reference Range Interpretation [...] (test code = MDIFF) NO BASIC METABOLIC [id number] 12:55:00* Test Item Value Reference Range Interpretation [...] CA) 9.2 mg/dL 8.0-10.5 N CBC W/AUTO [id number] 12:19:00* Test Item Value Reference Range Interpretation [...] REQUIRED (test code = MDIFF) NO RBC [id number] 12:19:00* Test Item Value Reference Range Interpretation Comments HYPOCHROMIA (test code = HYPO) 1+ POIKILOCYTOSIS (test code = POIK) 1+ ANISOCYTOSIS (test code = ANISO) 2+ MICROCYTOSIS (test code = MICR) 1+ MACROCYTOSIS (test code = MACR) FEW TARGET CELLS (test code = TGT) SEEN OVALOCYTES (test code = OVAL) FEW SCHISTOCYTES (test code = GINA) FEW BASIC METABOLIC [id number] 10:16:00* Test Item Value Reference Range Interpretation [...] CA) 8.6 mg/dL 8.0-10.5 N CBC W/AUTO [id number] 10:04:00* Test Item Value Reference Range Interpretation [...] REQUIRED (test code = MDIFF) NO RBC [id number] 10:04:00* Test Item Value Reference Range Interpretation Comments ANISOCYTOSIS (test code = ANISO) CBC W/AUTO [id number] 10:04:00* Test Item Value Reference Range Interpretation [...] REQUIRED (test code = MDIFF) NO RBC [id number] 10:04:00* Test Item Value Reference Range Interpretation Comments ANISOCYTOSIS (test code = ANISO) [id number] 17:19:00* Test Item Value Reference Range Interpretation Comments GLUBED (test code = GLUBED) 109 MG/DL 70-110 N Performed by certified singeing torch operator at [facility] [id number] 06:19:00* Test Item Value Reference Range Interpretation Comments GLUBED (test code = GLUBED) 131 MG/DL 70-110 H Performed by certified singeing torch operator at [facility] [id number] 20:25:00* Test Item Value Reference Range Interpretation Comments GLUBED (test code = GLUBED) 130 MG/DL 70-110 H Performed by certified singeing torch operator at [facility] [id number] 18:14:00* Test Item Value Reference Range Interpretation Comments GLUBED (test code = GLUBED) 155 MG/DL 70-110 H Performed by certified singeing torch operator at [facility] [id number] 14:44:00* Test Item Value Reference Range Interpretation Comments ACT-ISTAT (test code = ACTI) 142 SEC 74-137 H Performed by certified singeing torch operator at [facility] [id number] 13:09:00* Test Item Value Reference Range Interpretation Comments ACT-ISTAT (test code = ACTI) 164 SEC 74-137 H Performed by certified singeing torch operator at [facility] [id number] 11:03:00* Test Item Value Reference Range Interpretation Comments GLUBED (test code = GLUBED) 105 MG/DL 70-110 N Performed by certified singeing torch operator at [facility] [id number] 09:55:00* Test Item Value Reference Range Interpretation Comments ACT-ISTAT (test code = ACTI) 335 SEC 74-137 H Performed by certified singeing torch operator at [facility] [id number] 09:55:00* Test Item Value Reference Range Interpretation Comments ACT-ISTAT (test code = ACTI) 329 SEC 74-137 H Performed by certified singeing torch operator at [facility] [id number] 09:55:00* Test Item Value Reference Range Interpretation Comments ACT-ISTAT (test code = ACTI) 257 SEC 74-137 H Performed by certified singeing torch operator at [facility] - CT ANGIO [id number] 17:42:00 Name: KELLY GROVES [facility] : 1945 Age/S: 73 / F [address] [place] [address] Unit #: [id number] Loc: [place] [address] Phys: Rye Campbell MD Acct: [id number] Dis Date: Status: ADM IN PHONE #: [phone] Exam Date: 07/27/2019 1715 FAX #: [phone] Reason: PVI PROTOCOL EXAMS: CPT CODE: [id number] CT ANGIO CHEST [address] ANGIOGRAM WITH IV CONTRAST (PULMONARY [...] 1 Signed Report (CONTINUED) Name: KELLY GROVES [facility] : 1945 Age/S: 73 / F [address] [place] [address] Unit #: [id number] Loc: [place] [address] Phys: Rey Campbell MD Acct: [id number] Dis Date: Status: ADM IN PHONE #: [phone] Exam Date: 07/27/2019 1715 FAX #: [phone] Reason: PVI PROTOCOL EXAMS: CPT CODE: [id number] CT ANGIO CHEST 61552 < Continued> at 1742 Reported and signed by: Luis Melendrez D.O. CC: Rey Campbell MD; Ron Cobb MD; Ishan NarayanFormerly [facility], [facility] Technologist:RT Luzma(R)(CT) CTDI: DLP: Trnscb Date/Time: 07/27/2019 (1741) [email or web address] Orig Print D/T: S: 07/27/2019 (9459) PAGE 2 Signed Report LIPOPROTEIN [id number] 09:30:00* Test Item Value Reference Range Interpretation Comments LIPOPROTEIN LDL (test code = LDL) 58 mg/dL 0-100 N <100 [id number] NEAR OPTIMAL/ABOVE [id number] HIGH>AK=836 VERY HIGH*Guidelines provided by the National Cholesterol EducationProgram Adult Treatment Panel III [id number] 08:54:00* Test Item Value Reference Range Interpretation [...] 3 troponins total (including troponin done in ED)[id number] 06:57:00* Test Item Value Reference Range Interpretation [...] total (including troponin done in ED)B-TYPE NATRIURETIC [id number] 03:02:00* Test Item Value Reference Range Interpretation Comments B-TYPE NATRIURETIC PEPTIDE (test code = BNP) 172.0 PG/ML 0-100 H - XR CHEST 1 [id number] 02:59:00 FAX: Salazar Granados MD [phone] [place]: St: REG Name: KELLY ABDI [facility] : [birth year] Age/S: 73/F [address] [place] [address] Unit #: [id number] Loc: [place] [address] Phys: Salazar Gregory MD Acct: [id number] Dis Date: Status: REG ER PHONE #: [phone] Exam Date: 07/27/2019223 FAX #: [phone] Reason: Chest Pain EXAMS: CPT CODE: [id number] XR CHEST 1 V 27901 EXAM: CR, XR chest one view: 2019, [...] M.D. CC: Salazar paulson MD Technologist: Diandra Owen, RT(R) Trnscrd Date/Time/By: 07/27/2019 (025) : By: analilia [email or web address] Orig Print D/T: S: 07/27/2019 (2280) PAGE 1 Signed Report CBC W/AUTO [id number] 02:45:00* Test Item Value Reference Range Interpretation [...] REQUIRED (test code = MDIFF) NO RBC [id number] 02:45:00* Test Item Value Reference Range Interpretation [...] (test code = STO) FEW BASIC METABOLIC [id number] 02:42:00* Test Item Value Reference Range Interpretation [...] CA) 9.1 mg/dL 8.0-10.5 N HEPATIC FUNCTION [id number] 02:42:00* Test Item Value Reference Range Interpretation [...] code = ALKP) 91 IUnit/L 20-125 N [id number] 02:42:00* Test Item Value Reference Range Interpretation Comments LIPASE (test code = LIP) 243 IUnit/L 73-393 N [id number] 02:42:00* Test Item Value Reference Range Interpretation Comments MAGNESIUM (test code = MAG) 1.70 mg/dL 1.8-2.4 L TSH REFLEX TO [id number] 02:42:00* Test Item Value Reference Range Interpretation Comments TSH REFLEX TO FT4 (test code = TSHREFLEX) 3.62 IU/mL 0.42-5.47 N PROTHROMBIN [id number] 02:34:00* Test Item Value Reference Range Interpretation [...] Infarction (to prevent recurrent infarct). THROMBOPLASTIN TIME [id number] 02:34:00* Test Item Value Reference Range Interpretation Comments THROMBOPLASTIN TIME PARTIAL (test code = PTT) 31.4 Seconds 25.0-39. 5 N Therapeutic Range: 50.4 - 88.3 Seconds Effective 09/09/2018 [id number] 02:34:00* Test Item Value Reference Range Interpretation Comments D-DIMER (test code = DDIMER) 702 ng/mlFEU <=500 HH THROMBOSIS AND/OR PULMONARY EMBOLISM AND THE CLINICAL CUT- OFF VALUE FOR EXCLUSION (500 ng/mL FEU) OF THESE CONDITIONSIS VALIDATED BY THE SENIOR WRITER OF THE METHOD. A NEGATIVE D-DIMER RESULT WHEN COMBINED WITH A CLINICALASSESSMENT OF LOW PRETEST PROBABILITY HAS BEEN SHOWN TO HAVEA HIGH NEGATIVE PREDICTIVE VALUE OF DVT OR PE. D-DIMER VALUES >500 ng/mL FEU ARE NOT DIAGNOSTIC FOR DVT, PEor DIC WITHOUT OTHER CONFIRMATORY TESTS AND APPROPRIATECLINICAL EUALUATIONS. BASIC METABOLIC [id number] 02:32:00* Test Item Value Reference Range Interpretation [...] CA) 9.1 mg/dL 8.0-10.5 N HEPATIC FUNCTION [id number] 02:32:00* Test Item Value Reference Range Interpretation [...] TOTAL (test code = ALKP) IUnit/L 20-125 [id number] 02:32:00* Test Item Value Reference Range Interpretation Comments LIPASE (test code = LIP) IUnit/L 73-393 [id number] 02:32:00* Test Item Value Reference Range Interpretation Comments MAGNESIUM (test code = MAG) mg/dL 1.8-2.4 TSH REFLEX TO [id number] 02:32:00* Test Item Value Reference Range Interpretation Comments TSH REFLEX TO FT4 (test code = TSHREFLEX) IU/mL 0.42-5.47 CBC W/AUTO [id number] 02:20:00* Test Item Value Reference Range Interpretation [...] REQUIRED (test code = MDIFF) NO RBC [id number] 02:20:00* Test Item Value Reference Range Interpretation Comments ANISOCYTOSIS (test code = ANISO) CBC W/AUTO [id number] 02:20:00* Test Item Value Reference Range Interpretation [...] REQUIRED (test code = MDIFF) NO RBC [id number] 02:20:00* Test Item Value Reference Range Interpretation Comments ANISOCYTOSIS (test code = ANISO) TROPONIN-I [id number] 02:07:00* Test Item Value Reference Range Interpretation Comments TROPONIN-I RAPID (test code = TROPIRAP) 0.00 ng/mL 0.00-0.08 N Performed by certified singeing torch operator at [facility] Ctr Negative: <= 0.08 Positive: >= 0.09An elevated troponin value alone is not sufficient todiagnose a myocardial infarction. Rather, the patient sclinical presentation (history, physical exam) and ECGshould be used in conjunction with troponin in thediagnostic evaluation of suspected myocardial infarction. Aserial sampling protocol is recommended to facilitate the identification of temporal changes in troponin levels characteristic of PR. SP LUMBAR, COMPLETE MIN [id number] 18:38:00 [place] [address] Patient Name: KELLY GROVES MR #: [id number] : 1945 Age/Sex: 72/F Req #: [id number] [facility] Physician: Ordered by: MILADY BERG MD Report #: [id number] Location: [facility] Room/Bed: Procedure: [id number] DX/S P LUMBAR, COMPLETE MIN 4VW Exam [...] at L4-5 and L5-S1. Signed by: Uyen Carcamo, M.M.M. on 06/19/2018 6:41 PM Dictated By: BERENICE NGO DO [facility] Signed By: BERENICE NGO DO on 06/19/181840 Transcribed By: LAKIA on 06/19 COPY TO: MILADY BERG MD HIP RIGHT 2-3 VW (+/- PELVIS) [place] [address] Patient Name: KELLY GROVES MR #: [id number] : Age/Sex: 71/F Req #: [id number] Adm Physician: Ordered by: MILADY BERG MD Report #: [id number] Location: RAD Room/Bed: Procedure: [id number] DX/HIP RIGHT 2-3 VW (+/- PELVI S) Exam Date: Exam Time: REPORT STATUS: Sign ed PROCEDURE: HIP RIGHT 2-3 VW (+/- PELVIS) COMPARISON: None. INDICATIONS: RIGHT HIP/LEG PAIN FINDINGS: No acute fracture or dis location. Partially imaged degenerative changes of right SI joint. Right pelvi c phleboliths. CONCLUSION: No acute fracture or dislocation of th e right hip. Dictated by: Enmanuel Hays M.D. on 03/05/2017 at 15 :41 Electronically approved by: Enmanuel Hays M.D. on 03/05/2017 at 15: 41 Dictated By: ENMANUEL HAYS MD 40 Transcribed By: ISABELLA on 03/05/171540 CO PY TO: MILADY BERG MD SP LUMBAR, COMPLETE MIN 4VW [place] [address] Patient Name: KELLY GROVES MR #: [id number] : 1945 Age/Sex: 71/F Req #: [id number] Adm Physician: Ordered by: MILADY BERG MD Report #: [id number] Location: RAD Room/Bed: Procedure: [id number] DX/SP LUMBAR, COMPLETE MIN 4VW Exam Date: [...] acute fracture or subluxation. Dictated b y: Enmanuel Hays M.D. on 03/05/2017 at 15:45 Electronically approved by : Enmanuel Hays M.D. on 03/05/2017 at 15:45 Dictated By: AGUSTO HAYS MD [address] scribed By: ISABELLA on 03/05/17 1541 COPY TO: MILADY BERG MD
--- NOTE | 2019-10-29 19:56 | Diagnostic Imaging Report ---
EXAM: CT Abdomen and Pelvis WITHOUT contrast INDICATION: Abdominal pain, nausea and vomiting. COMPARISON: None. TECHNIQUE: Abdomen and pelvis were scanned utilizing a multidetector helical scanner from the lung base to the pubic symphysis without administration of IV contrast. Absence of intravenous contrast decreases sensitivity for detection of focal lesions and vascular pathology. Coronal and sagittal reformations were obtained. Routine protocol was performed. IV CONTRAST: None. ORAL CONTRAST: Water RADIATION DOSE: Total DLP: 258.25 mGy*cm Estimated effective dose: (DLP x 0.015 x size factor) mSv COMPLICATIONS: None FINDINGS: LINES and TUBES: None. LOWER THORAX: Bibasilar mild honeycombing in the posterior lung bases may represent mild senescent fibrosis. HEPATOBILIARY: The liver is diffusely mildly hyperdense on this noncontrast exam, which is nonspecific finding, however, may reflect some degree of hemachromatosis. Reviewed around the position could also have this appearance in the proper clinical setting. No focal hepatic lesions. Mild central intrahepatic biliary dilatation mild prominence of the common bile duct may reflect reservoir effect status post cholecystectomy. GALLBLADDER: No radio-opaque stones or sludge. No wall thickening. SPLEEN: No splenomegaly. PANCREAS: Status post partial pancreatectomy, with only the pancreatic head and as a process remaining. No focal masses or ductal dilatation. ADRENALS: No adrenal nodules KIDNEYS/URETERS: No hydronephrosis. No cystic or solid mass lesions. No stones. GI TRACT: The small bowel loops are decompressed. Inspissated stool is present within the rectum. There is mild nodular wall thickening of the sigmoid colon as seen on image 71 series 2 which may reflect adherent stool, not completely evaluated in this examination without oral contrast. There is mild dilatation of the cecum, ascending and transverse colon with fluid and fecal material attenuation. Appendix is normal. Small hiatal hernia. PELVIC ORGANS/BLADDER: The uterus is absent. LYMPH NODES: No lymphadenopathy. VESSELS: There is mild atherosclerotic disease in the aorta and major arterial branches. PERITONEUM / RETROPERITONEUM: No free air or fluid. BONES: There are degenerative changes in the lumbar spine. S shaped curvature of the lumbar spine with levoscoliosis. SOFT TISSUES: Unremarkable. IMPRESSION: 1. Findings may reflect fecal impaction with constipation. 2. Status post cholecystectomy. Mild central intrahepatic biliary dilatation mild prominence of the common bile duct may reflect reservoir effect status post cholecystectomy. 3. Status post partial pancreatectomy. 4. Increased attenuation of the hepatic parenchyma is a nonspecific finding, however, which can most commonly be seen with hemachromatosis and amiodarone deposition in the proper clinical setting. Signed by: Dr. Garfield Zamudio M.D. on 10/29/2019 7:53 PM
[2019-10-29] MEDS ORDERED: ACETAMINOPHEN 325 MG TAB PO PRN (20:45)
[2019-10-29 21:45] VITALS: BP 146/62
--- NOTE | 2019-10-29 21:45 | NUR ---
Patient arrived on the unit from ED as a new admit. Admitting diagnosis of abdominal pain. Pt alert and oriented x3. Ambulatory in room prn. Pt c/o nausea and will be medicated accordingly. Call alfonso within reach. Will monitor.
[2019-10-29 21:50] VITALS: BP 146/62
[2019-10-29 22:00] VITALS: BP 146/62
--- NOTE | 2019-10-29 23:05 | NUR ---
Called Dr. Tse and informed about pt condition. MD ordered to change diet from NPO to Clear liquid. MD also ordered to start patient on IVF (NS at 60ml/hr).
--- NOTE | 2019-10-29 23:06 | NUR ---
Also informed Dr. Tse via phone call that patient is refusing to drink 1 cup of prune juice. Pt stated she does not drink juices.
[2019-10-29] MEDS ORDERED: SODIUM CHLORIDE 0.9% 1000ML 1,000 ML IV SCH (23:15)
[2019-10-29] MEDS: SODIUM CHLORIDE 0.9% 1000ML 1,000 ML IV SCH (23:19)
[2019-10-30] VITALS (9 sets, daily range): BP systolic 122–170; BP diastolic 54–60
[2019-10-30] MEDS ORDERED: VITAMIN D32400 UNIT/ PO (00:03)
[2019-10-30] MEDS ORDERED: GABAPENTIN100 MG PO (00:03)
[2019-10-30] MEDS ORDERED: FERROUS SULFAT325 MG PO (00:03)
[2019-10-30] MEDS ORDERED: ASPIRIN EC81 MG PO (00:03)
[2019-10-30] MEDS ORDERED: ELIQUIS5 MG PO (00:03)
[2019-10-30] MEDS ORDERED: AMIODARONE HCL200 MG PO (00:03)
[2019-10-30] MEDS ORDERED: SAMSCA15 MG PO (00:03)
--- NOTE | 2019-10-30 00:30 | NUR ---
Soap suds enema done on the patient per MD order. Patient tolerated enema well. Some stool particles and liquid stool excreted from anus. Pt cleaned and sheets changed.
--- NOTE | 2019-10-30 01:20 | NUR ---
Patient had a very large soft and loose brown bowel movement. Pt escorted to the bathroom and cleaned at this time. Sheets and linens were changed.
[2019-10-30 06:52] LABS: BASOPHILS # (AUTO) 0.1 (0.0-0.1); EOSINOPHILS # (AUTO) 0.1 (0.0-0.4); EOSINOPHILS % 1.7 % (0.0-6.0); HEMATOCRIT 27.9 % (34.2-44.1); HEMOGLOBIN 8.7 g/dL (12.0-16.0); LYMPHOCYTES # (AUTO) 1.8 (1.0-3.2); LYMPHOCYTES % 22.5 % (18.0-39.1); MEAN CORPUSCULAR HEMOGLOBIN 19.2 pg (28-32); MEAN CORPUSCULAR HGB CONC 31.2 g/dL (31-35); MEAN CORPUSCULAR VOLUME 61.6 fL (81-99); MONOCYTES # (AUTO) 0.7 (0.2-0.8); MONOCYTES % 9.1 % (4.4-11.3); NEUTROPHILS # (AUTO) 5.2 (2.1-6.9); NEUTROPHILS % 64.6 % (38.7-80.0); PLATELET COUNT 320 x10e3/uL (140-360); RED BLOOD COUNT 4.53 x10e6/uL (3.6-5.1); RED CELL DISTRIBUTION WIDTH 22.3 % (11.7-14.4)
[2019-10-30 07:10] LABS: ALBUMIN/GLOBULIN RATIO 0.8 (0.8-2.0); CALCIUM 8.4 mg/dL (8.4-10.2); CREATININE, SERUM 1.35 mg/dL (0.57-1.11)
--- NOTE | 2019-10-30 07:10 | NUR ---
RCD PT AT BED PT IS ALERT AND ORIENTED RESTING ON BED IV PATENT BY SALINE FLUSH BED LOW AND LOCKED CALL LIGHT IN REACH
--- NOTE | 2019-10-30 07:16 | NUR ---
H&P cc: abdominal pain HPI: 73yoF, PCP Dr.S. Stovall, developed abdominal pain, found to have fecal impaction. Pt sates that she initially had mild abdominal pain. No N/V. PMH: CKD3 due to DM2,colitis, Hypertensive heart ds, HLD, pancreatic cancer with partial pancreatectomy, GERD, chr anemia, PAF, [place] (no stent) PShx: partial pancreatectomy 2003, hysterectomy, [place]; see emr FH/SH; MEds; see MAR ROS: no cp/sob/f/c/s/N/v/D/MILLS/cp/sob/skin rash/back pain/leg pain/vision changes v/s revd PE tired appearing anicteric ns1s2 mod bs soft nt nd no e/t skin dry n. affect labs/meds revd A/P: Fecal impaction- bowel reg and enema Constipation- bowel regimen Microcytic anemia Hypokalemia- replace; recheck ROSA- IVF CKD3 due to DM2 PAF- AC; hold amio Prop: dispo; f/u Victorino Nava MD, PhD.
[2019-10-30 08:00] LABS: CHOL/HDL RATIO 2.8 (3.0-3.6)
[2019-10-30 08:08] LABS: FERRITIN 876.48 ng/mL (4.63-204.00)
[2019-10-30] MEDS ORDERED: POTASSIUM CHLORIDE 10MEQ EA PO ONE (08:50)
[2019-10-30] MEDS: PANTOPRAZOLE SOD 40 MG TABEC PO SCH (09:00)
[2019-10-30] MEDS ORDERED: MONTELUKAST SODIUM 10 MG TAB PO SCH ×2 (09:00→21:00)
[2019-10-30] MEDS: METOPROLOL SUCCINATE 25 MG TAB XL PO SCH ×2 (09:00→17:00)
[2019-10-30] MEDS: APIXABAN 5 MG TABLET PEG SCH ×2 (09:00→17:00)
[2019-10-30] MEDS: DOCUSATE SODIUM 100 MG CAP PO SCH ×2 (09:00→17:00)
[2019-10-30] MEDS: FERROUS SULFATE 325 MG TAB PO SCH ×2 (09:00→17:00)
[2019-10-30] MEDS: ISOSORBIDE MONONITRATE 30 MG TAB CR PO SCH (09:00)
[2019-10-30] MEDS: GABAPENTIN 100 MG CAP PO SCH ×3 (09:00→20:37)
[2019-10-30] MEDS: BISACODYL 5 MG TAB EC PO SCH (09:00)
[2019-10-30] MEDS: SENNOSIDES 8.6 MG TAB PO SCH ×2 (09:00→17:00)
--- NOTE | 2019-10-30 12:04 | NUR ---
Pt. expressed no spiritual or emotional concerns at this time. Production Ski Repairer ESVIN Dominguez, provided hospitality, prayer and information on how to reach kennel helper, if needed. No need to follow at this time. MARGE MELENDEZ Production Ski Repairer Spiritual Care Department O: [phone]
[2019-10-30 12:30] LABS: MICROCYTOSIS SLIGHT
[2019-10-30] MEDS: SODIUM CHLORIDE 0.9% 1000ML 1,000 ML IV SCH (15:55)
--- NOTE | 2019-10-30 18:42 | NUR ---
PT RESTING ON BED BED SIDE REPORT GIVEN TO ONCOMING NURSE
--- NOTE | 2019-10-30 19:25 | Consultation ---
DATE OF CONSULTATION: 10/30/2019 Cardiology Consultation REASON FOR CONSULTATION: Medication management, amiodarone. HISTORY OF PRESENT ILLNESS: This is a 73-year-old woman with history of hypertension, hyperlipidemia, coronary artery disease, atrial fibrillation, status post ablation, and severe aortic stenosis for [id number]-fn-bfctxbpc aortic stenosis, who presents with complaints of abdominal pain. The patient reports that she has had extensive admissions to [facility] in the last few months and had ablation of her atrial fibrillation in the early part of July. In addition, she reports having a myocardial infarction; however, cardiac catheterization did not require intervention. This last week, she developed abdominal pain, which worsened yesterday and was associated with nausea and vomiting. She therefore presented to the ER for further care. She denies any cardiac complaints. She denies chest pain or shortness of breath, edema, or PND. She does endorse occasional palpitations as well as what she describes as orthopnea for years. REVIEW OF SYSTEMS: Negative except as per HPI. PAST MEDICAL HISTORY: 1. Hypertension. 2. Hyperlipidemia. 3. Coronary artery disease. 4. Xhas-yp-tzmvmimi aortic stenosis. 5. Atrial fibrillation, status post ablation. 6. Asthma. PAST SURGICAL HISTORY: 1. Hysterectomy. 2. Knee surgery. 3. Partial resection of the pancreas due to cancer. ALLERGIES: PLEASE SEE EMR. MEDICATIONS: Please see medication list. SOCIAL HISTORY: No tobacco, alcohol, or illicit drugs. FAMILY HISTORY: Pertinent for mother who required aortic valve replacement and father who of a myocardial infarction. PHYSICAL EXAMINATION: VITAL SIGNS: Temperature 98.1 degrees, pulse 60, respiratory rate is 16, blood pressure 130/54, oxygen saturation 97%. GENERAL: Elderly woman, in no acute distress, awake and alert. HEENT: Normocephalic, atraumatic. Pupils equal. No scleral icterus. NECK: Supple. No thyromegaly or cervical lymphadenopathy. No carotid bruits. LUNGS: Clear to auscultation bilaterally. No wheezes or crackles. CARDIOVASCULAR: Bradycardic, but regular. Mild 2/6 systolic murmur. Normal S1, S2. ABDOMEN: Soft nontender. EXTREMITIES: No edema. NEUROLOGIC: Nonfocal. LABORATORY DATA: WBCs 8.01, hemoglobin 8.7, hematocrit 27.9, and platelets 320. Sodium 138, potassium 3, chloride 100, CO2 of 28, BUN 24, creatinine 1.35. IMAGING DATA: Telemetry was personally reviewed and telemetry revealing sinus bradycardia. IMPRESSION: 1. Abdominal pain. 2. Elevated LFTs. 3. Atrial fibrillation, status post ablation. 4. Coronary artery disease. 5. Hypertension. 6. Hyperlipidemia. RECOMMENDATIONS: 1. The patient is in currently sinus rhythm on telemetry, given question concern regarding mildly elevated LFTs. We will stop amiodarone. Check TSH. Continue home cardiac medications otherwise. Blood pressure is for the most part acceptable for age. Further management of abdominal pain per Primary. 2. Start aspirin. Continue Eliquis, this can be held as procedures are planned. Thank you for this consult. We will continue to follow. Yadira Perez MD ABS/MODL /[id number]
[2019-10-30] MEDS: APIXABAN 5 MG TABLET PO SCH (20:37)
[2019-10-30] MEDS ORDERED: SIMVASTATIN 40 MG TAB PO SCH (21:00)
[2019-10-30] MEDS ORDERED: APIXABAN 5 MG TABLET PEG SCH (21:00)
[2019-10-31 00:17] VITALS: BP 144/61
[2019-10-31 04:46] VITALS: BP 145/58
--- NOTE | 2019-10-31 07:49 | NUR ---
D/C summary Principal dX: Fecal impaction- bowel reg and enema Constipation- bowel regimen Microcytic anemia Hypokalemia- replace; recheck ROSA- IVF Secondary Dx: CKD3 due to DM2 PAF- AC; hold amio Prop: dispo; f/u d/c home stable d/c>35mins f/u pcp 1 week Victorino Nava MD, PhD.
[2019-10-31] MEDS ORDERED: COLACE100 MG PO (07:51)
[2019-10-31] MEDS ORDERED: SENOKOT8.6 MG PO (07:51)
[2019-10-31] MEDS ORDERED: BISACODYL5 MG PO (07:51)
[2019-10-31 08:00] VITALS: BP 150/55
[2019-10-31 08:05] VITALS: BP 150/55
[2019-10-31 08:21] LABS: ANION GAP 15.3 mmol/L (8-16); CALCIUM 8.2 mg/dL (8.4-10.2); POTASSIUM 3.3 mmol/L (3.5-5.1)
[2019-10-31 08:39] LABS: MAGNESIUM 1.5 MG/DL (1.3-2.1); PHOSPHORUS 2.2 MG/DL (2.3-4.7)
[2019-10-31] MEDS: BISACODYL 5 MG TAB EC PO SCH (08:48)
[2019-10-31] MEDS: APIXABAN 5 MG TABLET PO SCH (08:48)
[2019-10-31] MEDS: DOCUSATE SODIUM 100 MG CAP PO SCH (08:48)
[2019-10-31] MEDS: ISOSORBIDE MONONITRATE 30 MG TAB CR PO SCH (08:49)
[2019-10-31] MEDS: METOPROLOL SUCCINATE 25 MG TAB XL PO SCH (08:49)
[2019-10-31] MEDS: SENNOSIDES 8.6 MG TAB PO SCH (08:49)
[2019-10-31] MEDS: GABAPENTIN 100 MG CAP PO SCH (08:49)
[2019-10-31] MEDS: FERROUS SULFATE 325 MG TAB PO SCH (08:49)
[2019-10-31] MEDS: PANTOPRAZOLE SOD 40 MG TABEC PO SCH (08:49)
[2019-10-31] MEDS ORDERED: ASPIRIN 81 MG ENTERIC COATED PO SCH (09:00)
--- NOTE | 2019-10-31 10:49 | NUR ---
Patient Discharged home, Alert with no distress, denies any pain or SOB, Prescription given, IV canula removed with tip intact, her daughter here to pick patient.
== END 2019-10-31 10:46 | disposition home or self-care (01) ==
LOC: ER 13:49 → ERHOLD 18:42 → MED/SURG3 22:11
PROVIDERS: ADMIT Internal Medicine; ATTEND Internal Medicine
DX: K56.41 Fecal impaction (principal); E87.6 Hypokalemia; N17.9 Acute kidney failure, unspecified; E11.22 Type 2 diabetes mellitus with diabetic chronic kidney disease; I13.10 Hypertensive heart and chronic kidney disease without heart failure, with stage 1 through stage 4 chronic kidney disease, or unspecified chronic kidney disease; N18.3 Chronic kidney disease, stage 3 (moderate); I48.0 Paroxysmal atrial fibrillation; I25.2 Old myocardial infarction; E78.00 Pure hypercholesterolemia, unspecified; Z80.8 Family history of malignant neoplasm of other organs or systems; K57.92 Diverticulitis of intestine, part unspecified, without perforation or abscess without bleeding; D50.9 Iron deficiency anemia, unspecified; E78.5 Hyperlipidemia, unspecified; I25.10 Atherosclerotic heart disease of native coronary artery without angina pectoris; I35.0 Nonrheumatic aortic (valve) stenosis; Z79.82 Long term (current) use of aspirin; Z88.2 Allergy status to sulfonamides; Z88.8 Allergy status to other drugs, medicaments and biological substances
CPT/HCPCS: 36415 ×3; 71045; 74176; 80048; 80053 ×2; 80061; 81001; 82607; 82728; 83036; 83540; 83605; 83735; 84100; 84443; 84466; 85025 ×2; 87040; 87635; 93005; 99284; G0378 ×3; J2270; J2405; J2543; J7030 ×2; S0164 ×2

== ENCOUNTER → 2021-06-19 | Outpatient (CLI) | payer MEDICARE ==
[~2021-06-19] MED LIST changes: +AMIODARONE HCL200 MG PO; +ASPIRIN EC81 MG PO; +BISACODYL5 MG PO; +COLACE100 MG PO; +DIOVAN160 MG PO; +ELIQUIS5 MG PO; +FERROUS SULFAT325 MG PO; +GABAPENTIN100 MG PO; +ISOSORBIDE MONO20 MG PO; +NORCO 5-325 TA1 EACH PO; +ONDANSETRON2 MG/1 ML PO; +SAMSCA15 MG PO; +SENOKOT8.6 MG PO; +VITAMIN D32400 UNIT/ PO
== END ==
LOC: RAD 12:51
DX: M25.571 Pain in right ankle and joints of right foot (principal)

== ENCOUNTER → 2022-03-28 | Outpatient (CLI) | payer MEDICARE | LOC: RAD 15:19 | DX: M25.511 Pain in right shoulder (principal); M25.561 Pain in right knee; Z91.81 History of falling ==